=== PATIENT | female | born 1950 | race Caucasian/White ===

== ENCOUNTER 2022-11-02 15:08 | Emergency (ER) | payer MEDICARE ==
[2022-11-02 15:17] VITALS: TEMP 98.4
[2022-11-02] MEDS ORDERED: SODIUM CHLORIDE 0.9% 500 ML 500 ML IV STA (15:22)
--- NOTE | 2022-11-02 15:28 | ED ---
Abdominal Pain HPI - General Chief Complaint: Abdominal Pain Stated Complaint: acute lower abd pain Time Seen by Provider: 11/02/22 15:22 Source: patient, family, RN notes reviewed, old records reviewed Mode of arrival: ambulatory Limitations: no limitations - History of Present Illness Initial Comments: This is a 72-year-old female presents today for evaluation suprapubic and periumbilical abdominal pain for going around a month. Diarrhea. Diminished bowel movement some nausea but no change in appetite. No fevers, patient has appendix removed but no other surgical history. Motrin, Tylenol for pain MD Complaint: abdominal pain -: days(s) Location: diffuse Radiation: none Migration to: no migration Severity: moderate Severity scale (1-10): 4 Quality: cramping, aching Consistency: constant Improves With: nothing, bowel movement Worsens With: nothing Associated Symptoms: nausea, vomiting Treatments Prior to Arrival: other (0) - Related Data Previous Rx's Medication Instructions Recorded polyethylene glycoL 3350 [Miralax] 17 gm PO DAILY #14 packet 11/02/22 Allergies Allergy/AdvReac Type Severity Reaction Status Date / Time No Known Allergies Allergy Verified 11/02/22 15:17 Review of Systems ROS Statement: Those systems with pertinent positive or pertinent negative responses have been documented in the HPI. ROS Other: All systems not noted in ROS Statement are negative. Past Medical History Past Medical History: No Reported History History of Any Multi-Drug Resistant Organisms: None Reported Past Surgical History: Adenoidectomy, Appendectomy, Tonsillectomy Past Psychological History: No Psychological Hx Reported Smoking Status: Former smoker Past Alcohol Use History: None Reported Past Drug Use History: None Reported General Exam Limitations: no limitations General appearance: alert, in no apparent distress Head exam: Present: atraumatic, normocephalic, normal inspection Eye exam: Present: normal appearance, PERRL, EOMI. Absent: scleral icterus, conjunctival injection, periorbital swelling ENT exam: Present: normal exam, mucous membranes moist Neck exam: Present: normal inspection. Absent: tenderness, meningismus, lymphadenopathy Respiratory exam: Present: normal lung sounds bilaterally. Absent: respiratory distress, wheezes, rales, rhonchi, stridor Cardiovascular Exam: Present: regular rate, normal rhythm, normal heart sounds. Absent: systolic murmur, diastolic murmur, rubs, gallop, clicks GI/Abdominal exam: Present: soft, normal bowel sounds. Absent: distended, tenderness, guarding, rebound, rigid Extremities exam: Present: normal inspection, full ROM, normal capillary refill. Absent: tenderness, pedal edema, joint swelling, calf tenderness Back exam: Present: normal inspection Neurological exam: Present: alert, oriented X3, CN II-XII intact Psychiatric exam: Present: normal affect, normal mood Skin exam: Present: warm, dry, intact, normal color. Absent: rash Course Vital Signs 11/02/22 11/02/22 15:14 18:20 Temperature 98.4 F Pulse Rate 78 80 Respiratory 16 18 Rate Blood Pressure 169/104 183/108 O2 Sat by Pulse 98 Oximetry - Reevaluation(s) Reevaluation #1: 11/02/22 15:49 Medical records reviewed Reevaluation #2: 11/02/22 17:37 No change in symptoms here in the ER but not requiring pain medication Reevaluation #3: 11/02/22 17:38 Patient informed results and questions have been answered Reevaluation #4: 11/02/22 15:49 Was pt. sent in by a medical professional or institution (, PA, [employer] SALESPERSON, urgent care, hospital, or snf...) When possible be specific @ -no Did you speak to anyone other than the patient for history (EMS, parent, family, police, friend...)? What history was obtained from this source @ -no Did you review nursing and triage notes (agree or disagree)? Why? @ -agree Are old charts reviewed (outside hosp., previous admission, EMS record, old EKG, old radiological studies, urgent care reports/EKG's, snf records)? Report findings @ -yes Differential Diagnosis (chest pain, altered mental status, abdominal pain women, abdominal pain men, vaginal bleeding, weakness, fever, dyspnea, syncope, headache, dizziness, GI bleed, back pain, seizure, CVA, palpatations, mental health, musculoskeletal)? @ -prior EKG interpreted by me (3pts min.). @ -no X-rays interpreted by me (1pt min.). @ -no CT interpreted by me (1pt min.). @ -yes U/S interpreted by me (1pt. min.). @ -no What testing was considered but not performed or refused? (CT, X-rays, U/S, labs)? Why? @ -none What meds were considered but not given or refused? Why? @ -none Did you discuss the management of the patient with other professionals (professionals i.e. , PA, [employer] SALESPERSON, lab, RT, psych nurse, social science professor, commodities manager, teacher, command center officer, medical case manager)? Give summary @ -no Was smoking cessation discussed for >3mins.? @ -no Was critical care preformed (if so, how long)? @ -no Were there social determinants of health that impacted care today? How? (Homelessness, low income, unemployed, alcoholism, drug addiction, transportation, low edu. Level, literacy, decrease access to med. care, [facility], rehab)? @ -none Was there de-escalation of care discussed even if they declined (Discuss DNR or withdrawal of care, Hospice)? DNR status @ -no What co-morbidities impacted this encounter? (DM, HTN, Smoking, COPD, CAD, Cancer, CVA, ARF, Chemo, Hep., AIDS, mental health diagnosis, sleep apnea, morbid obesity)? @ -none Was patient admitted / discharged? Hospital course, mention meds given and route, prescriptions, significant lab abnormalities, going to OR and other pertinent info. @ - 72 female with persistent abdominal pain now requiring pain management here in the ER crampy persistent abdominal pain for one month. Severe constipation is found on computed tomography scan, this is present throughout we placed on bowel regimen can be discharged home Discharge Undiagnosed new problem with uncertain prognosis? @ -no Drug Therapy requiring intensive monitoring for toxicity (Heparin, Nitro, Insulin, Cardizem)? @ -no Were any procedures done? @ -no Diagnosis/symptom? @ -Abdominal pain constipation Acute, or Chronic, or Acute on Chronic? @ -Acute Uncomplicated (without systemic symptoms) or Complicated (systemic symptoms)? @ -Complicated Side effects of treatment? @ -no Exacerbation, Progression, or Severe Exacerbation? @ -exacerbation Poses a threat to life or bodily function? How? (Chest pain, [place], [place], pneumonia, PE, COPD, DKA, ARF, appy, cholecystitis, CVA, Diverticulitis, Homicidal, Suicidal, threat to staff... and all critical care pts) @ -no Reevaluation #5: 11/02/22 15:49 Differential Abdominal Pain Women: Appendicitis, Cholecystitis, diverticulosis, ischemic bowel, pancreatitis, hepatitis, UTI, gastroenteritis, AAA, incarcerated hernia, bowel obstruction, constipation, inflammatory bowel, hepatitis, peptic ulcer disease, splenic infarction, perforated viscus, vulvitis, ovarian torsion, PID, kidney stone, placenta abruption, this is not meant to be an all-inclusive list Medical Decision Making - Medical Decision Making 72 female with persistent abdominal pain now requiring pain management here in the ER crampy persistent abdominal pain for one month. Severe constipation is found on computed tomography scan, this is present throughout we placed on bowel regimen can be discharged home - Lab Data Result diagrams: 11/02/22 15:44 11/02/22 15:44 Lab Results 11/02/22 11/02/22 11/02/22 Range/Units 15:44 15:44 17:00 WBC 8.8 (3.8-10.6) k/uL RBC 4.09 (3.80-5.40) m/uL Hgb 11.4 (11.4-16.0) gm/dL Hct 34.2 (34.0-46.0) % MCV 83.7 (80.0-100.0) fL MCH 27.7 (25.0-35.0) pg MCHC 33.2 (31.0-37.0) g/dL RDW 14.6 (11.5-15.5) % Plt Count 286 (150-450) k/uL MPV 6.9 Neutrophils % 82 % Lymphocytes % 11 % Monocytes % 5 % Eosinophils % 1 % Basophils % 0 % Neutrophils # 7.3 (1.3-7.7) k/uL Lymphocytes # 0.9 L (1.0-4.8) k/uL Monocytes # 0.4 (0-1.0) k/uL Eosinophils # 0.1 (0-0.7) k/uL Basophils # 0.0 (0-0.2) k/uL Sodium 130 L (137-145) mmol/L Potassium 4.1 (3.5-5.1) mmol/L Chloride 98 (98-107) mmol/L Carbon Dioxide 24 (22-30) mmol/L Anion Gap 8 mmol/L BUN 15 (7-17) mg/dL Creatinine 0.76 (0.52-1.04) mg/dL Est GFR (CKD-EPI)AfAm >90 (>60 ml/min/1.73 sqM) Est GFR (CKD-EPI)NonAf 80 (>60 ml/min/1.73 sqM) Glucose 106 H (74-99) mg/dL Calcium 8.5 (8.4-10.2) mg/dL Phosphorus 3.5 (2.5-4.5) mg/dL Magnesium 1.9 (1.6-2.3) mg/dL Total Bilirubin 0.8 (0.2-1.3) mg/dL AST 17 (14-36) U/L ALT 10 (4-34) U/L Alkaline Phosphatase 127 H (38-126) U/L Total Protein 6.2 L (6.3-8.2) g/dL Albumin 3.0 L (3.5-5.0) g/dL Amylase 58 (30-110) U/L Lipase 70 (23-300) U/L Urine Color Yellow Urine Appearance Clear (Clear) Urine pH 6.0 (5.0-8.0) Ur Specific [place] 1.011 (1.001-1.035) Urine Protein Negative (Negative) Urine Glucose (UA) Negative (Negative) Urine Ketones Negative (Negative) Urine Blood Negative (Negative) Urine Nitrite Negative (Negative) Urine Bilirubin Negative (Negative) Urine Urobilinogen <2.0 (<2.0) mg/dL Ur Leukocyte Esterase Negative (Negative) - Radiology Data Radiology results: report reviewed (CT abdomen and pelvis shows diffuse colonic stool), image reviewed Disposition Clinical Impression: Abdominal pain, Constipation Disposition: HOME SELF-CARE Condition: Good Instructions (If sedation given, give patient instructions): Constipation (ED) Prescriptions: polyethylene glycoL 3350 [Miralax] 17 gm PO DAILY #14 packet Is patient prescribed a controlled substance at d/c from ED?: No Referrals: None,Stated [Primary Care Provider] - 1-2 days Time of Disposition: 17:30
[2022-11-02 16:01] LABS: Basophils % (A) 0 %; Eosinophils # (A) 0.1 k/uL (0-0.7); Eosinophils % (A) 1 %; HCT 34.2 % (34.0-46.0); HGB 11.4 gm/dL (11.4-16.0); Lymphocytes # (A) 0.9 k/uL (1.0-4.8); Lymphocytes % (A) 11 %; MCH 27.7 pg (25.0-35.0); MCHC 33.2 g/dL (31.0-37.0); MCV 83.7 fL (80.0-100.0); Mean Platelet Volume 6.9; Monocytes # (A) 0.4 k/uL (0-1.0); Monocytes % (A) 5 %; Neutrophils # (A) 7.3 k/uL (1.3-7.7); Neutrophils % (A) 82 %; Platelet Count 286 k/uL (150-450); RBC 4.09 m/uL (3.80-5.40); RDW 14.6 % (11.5-15.5); WBC 8.8 k/uL (3.8-10.6)
[2022-11-02 16:16] LABS: ALT 10 U/L (4-34); AST 17 U/L (14-36); African American GFR (CKD) >90 (>60 ml/min/1.73 sqM); Alkaline Phosphatase 127 U/L (38-126); Amylase 58 U/L (30-110); Anion Gap 8 mmol/L; Blood Urea Nitrogen 15 mg/dL (7-17); Calcium 8.5 mg/dL (8.4-10.2); Carbon Dioxide 24 mmol/L (22-30); Chloride 98 mmol/L (98-107); Glucose 106 mg/dL (74-99); Lipase 70 U/L (23-300); Magnesium 1.9 mg/dL (1.6-2.3); Non-African American GFR(CKD) 80 (>60 ml/min/1.73 sqM); Phosphorus 3.5 mg/dL (2.5-4.5); Potassium 4.1 mmol/L (3.5-5.1); Sodium 130 mmol/L (137-145); Total Bilirubin 0.8 mg/dL (0.2-1.3); Total Protein 6.2 g/dL (6.3-8.2)
[2022-11-02 17:09] LABS: Appearance,Urine Clear (Clear); Bilirubin,Urine Negative (Negative); Blood,Urine Negative (Negative); Color,Urine Yellow; Glucose,Urine (UA) Negative (Negative); Ketones,Urine Negative (Negative); Leukocyte Esterase,Urine Negative (Negative); Nitrite,Urine Negative (Negative); Protein,Urine Negative (Negative); Specific Gravity,Urine 1.011 (1.001-1.035); Urobilinogen,Urine <2.0 mg/dL (<2.0)
--- NOTE | 2022-11-02 17:09 | CT ---
EXAMINATION TYPE: CT abdomen pelvis wo con DATE OF EXAM: 11/02/2022 COMPARISON: None INDICATION: Lower abdominal pain and cramping x1mo. DLP: 350.9 mGycm, Automated exposure control for dose reduction was used. CONTRAST: 0 mL of Isovue 300. Study performed without Oral Contrast TECHNIQUE: Axial images were obtained from above the diaphragm to the pubic rami in the axial plane a t 5 mm thick sections. Reconstructed images are reviewed on the computer in the coronal plane. FINDINGS: Limited CT sections are obtained the lung bases. The lung bases are clear. CT ABDOMEN: Liver: Normal Spleen: Normal Pancreas: Atrophic Adrenal glands: The adrenal glands are normal. Gallbladder: Normal Kidneys: Left kidney is within the left hemipelvis. No masses are evident. No hydronephrosis is present. No cysts are present. Right kidney: No masses are evident. No hydronephrosis is present. No cysts are present. Aorta: Vascular calcification is within the aorta. There is fusiform prominence of the mid abdominal aorta at 3.0 cm. Inferior vena cava: Normal. CT PELVIS: Loops of bowel within the abdomen and pelvis are normal. This study is performed without oral con trast limiting bowel evaluation. Fecal debris is through the colon. Correlate for constipation. Appendix: Not identified. No dilated tubular structure or inflammatory changes identified. Urinary bladder: Normal. Genitourinary structures: Uterus appears normal. Adnexa are normal. Osseous structures: No suspicious lytic or sclerotic lesions. IMPRESSIONS: 1. Equivocal correlation recommended for constipation. 2. Fusiform prominence abdominal aorta 3.0 cm.
[2022-11-02] MEDS ORDERED: GLYCERIN ADULT SUPPOSITORY 1 EACH RECTAL STA (17:34)
[2022-11-02] MEDS ORDERED: SENNOSIDES-DOCUSATE SODIUM 1 EACH TAB PO STA (17:34)
[2022-11-02] MEDS ORDERED: MAGNESIUM CITRATE 296 ML BOTTLE PO ONE (17:34)
[2022-11-02 18:22] VITALS: BP 183/108; PULSE 80; RESP 18
== END 2022-11-02 18:41 | disposition home or self-care (01) ==
LOC: EC 15:08
DX: K59.00 Constipation, unspecified (principal); Z87.891 Personal history of nicotine dependence
CPT/HCPCS: 36415; 74176; 80053; 81003; 82150; 83690; 83735; 84100; 85025; 96360; 96361; 99284

== ENCOUNTER 2023-01-04 11:50 | Inpatient (IN) | payer MEDICARE ==
[2023-01-04] MEDS ORDERED: KETOROLAC 15 MG/ML 1 ML VIAL IVP STA (12:12)
[2023-01-04] MEDS ORDERED: ONDANSETRON 4 MG/2 ML VIAL IVP STA (12:12)
[2023-01-04] MEDS ORDERED: SODIUM CHLORIDE 0.9% 1,000 ML IV STA ×2 (12:12→15:10)
[2023-01-04] MEDS ORDERED: MORPHINE SULFATE 4 MG/ML SYRINGE IVP STA ×2 (12:13→15:10)
--- NOTE | 2023-01-04 12:35 | ED ---
Abdominal Pain HPI - General Chief Complaint: Abdominal Pain Stated Complaint: Abd Pain Time Seen by Provider: 01/04/23 11:53 Source: patient, family, EMS, RN notes reviewed Mode of arrival: EMS Limitations: no limitations - History of Present Illness Initial Comments: This is a 72-year-old female who presents to the emergency department for abdominal pain. Patient was evaluated here for this in October and told that it was related to constipation. States that since then, symptoms have continued to worsen, particularly over the last 1-2 days. Reports associated nausea. She states that she is having regular bowel movements and does not believe that she is constipated. Pain is in the lower abdomen, worse on the right side. The pain does not go into her back or radiate elsewhere. Denies any fevers or chills. Denies any fevers, chills, sore throat, cough, dyspnea, chest pain, palpitations, vomiting, diarrhea, back pain, or headaches. MD Complaint: abdominal pain Location: suprapubic - Related Data Home Medications Medication Instructions Recorded Confirmed No Known Home Medications 01/04/23 01/04/23 Allergies Allergy/AdvReac Type Severity Reaction Status Date / Time No Known Allergies Allergy Verified 01/04/23 15:59 Review of Systems ROS Statement: Those systems with pertinent positive or pertinent negative responses have been documented in the HPI. ROS Other: All systems not noted in ROS Statement are negative. Past Medical History Past Medical History: No Reported History History of Any Multi-Drug Resistant Organisms: None Reported Past Surgical History: Adenoidectomy, Appendectomy, Tonsillectomy Past Psychological History: No Psychological Hx Reported Smoking Status: Former smoker Past Alcohol Use History: None Reported Past Drug Use History: None Reported General Exam Limitations: no limitations General appearance: alert, in distress Head exam: Present: atraumatic, normocephalic, normal inspection Respiratory exam: Present: normal lung sounds bilaterally. Absent: respiratory distress, wheezes, rales, rhonchi, stridor Cardiovascular Exam: Present: regular rate, normal rhythm, normal heart sounds. Absent: systolic murmur, diastolic murmur, rubs, gallop, clicks GI/Abdominal exam: Present: soft, tenderness (suprapubic), normal bowel sounds. Absent: distended Neurological exam: Present: alert, oriented X3, CN II-XII intact Psychiatric exam: Present: normal affect, normal mood Skin exam: Present: warm, dry, intact, normal color. Absent: rash Course Vital Signs 01/04/23 01/04/23 11:55 12:01 Temperature 97.8 F Pulse Rate 77 Respiratory 16 Rate Blood Pressure 175/89 O2 Sat by Pulse 99 Oximetry Medical Decision Making - Medical Decision Making This is a 72-year-old female who presents to the emergency department for abdominal pain. Was pt. sent in by a medical professional or institution? @ -No Did you speak to anyone other than the patient for history? @ -No Did you review nursing and triage notes? @ -Yes, and I agree, it is accurate with regards to the patient's symptoms. Were old charts reviewed? @ -No Differential Diagnosis? @ -Differential Abdominal Pain Women: Appendicitis, Cholecystitis, diverticulosis, ischemic bowel, pancreatitis, hepatitis, UTI, gastroenteritis, AAA, incarcerated hernia, bowel obstruction, constipation, inflammatory bowel, hepatitis, peptic ulcer disease, splenic infarction, perforated viscus, vulvitis, ovarian torsion, PID, kidney stone, placenta abruption, this is not meant to be an all-inclusive list EKG interpreted by me (3pts min.)? @ -Not obtained X-rays interpreted by me (1pt min.)? @ -Not obtained CT interpreted by me (1pt min.)? @ -Computed tomography scan of the abdomen and pelvis obtained. My interpretation identifies dilation of the sigmoid colon. U/S interpreted by me (1pt. min.)? @ -Not obtained What testing was considered but not performed? (CT, X-rays, U/S, labs)? Why? @ -None What meds were considered but not given? Why? @ -None Did you discuss the management of the patient with other professionals? @ -Yes, Dr. Pa, who accepts the patient for admission. Did you reconcile home meds? @ -Yes Was smoking cessation discussed for >3mins.? @ -No Was critical care preformed (if so, how long)? @ -No Were there social determinants of health that impacted care today? How? (Homelessness, low income, unemployed, alcoholism, drug addiction, transportation, low edu. Level, literacy, decrease access to med. care, longterm, rehab)? @ -No Was there de-escalation of care discussed even if they declined? (Discuss DNR or withdrawal of care, Hospice)? @ -No What co-morbidities impacted this encounter? (DM, HTN, Smoking, COPD, CAD, Cancer, CVA, Hep., AIDS, mental health diagnosis, sleep apnea, morbid obesity)? @ -None Was patient admitted / discharged? @ -Admitted. Lab work obtained revealing signs of dehydration, and was otherwise nonactionable. Computed tomography scan of the abdomen and pelvis obtained revealing a markedly abnormal sigmoid colon with dilation and ill- definition of the wall likely secondary to marked inflammation, possibly related to diverticulitis. Neoplasm/mass cannot be excluded. Proximal colon is also prominent in size with marked feces. There is also a small amount of free intraperitoneal air and ascites. In light of these findings and with the patient's intractable abdominal pain, she was admitted to medicine with general surgery consult for further evaluation and management. She was started on IV Z osyn for possible diverticulitis. Blood cultures obtained. CEA also ordered due to the possibility of neoplasm, with results pending at the time of admission. Undiagnosed new problem with uncertain prognosis? @ -None Drug Therapy requiring intensive monitoring for toxicity (Heparin, Nitro, Insulin, Cardizem)? @ -None Were any procedures done? @ -None Diagnosis/symptom? @ -Intractable abdominal pain, dilation of sigmoid colon, diverticulitis Acute, or Chronic, or Acute on Chronic? @ -Acute Uncomplicated (without systemic symptoms) or Complicated (systemic symptoms)? @ -Complicated Side effects of treatment? @ -None Exacerbation, Progression, or Severe Exacerbation] @ -Not applicable Poses a threat to life or bodily function? @ -Yes This case was discussed in detail with the attending ED physician, Dr. Rehman. Presentation, findings, and treatment plan discussed in detail as well. - Lab Data Result diagrams: 01/04/23 13:11 01/04/23 13:11 Lab Results 01/04/23 01/04/23 01/04/23 Range/Units 13:11 13:11 13:11 WBC 9.6 (3.8-10.6) k/uL RBC 4.21 (3.80-5.40) m/uL Hgb 11.6 (11.4-16.0) gm/dL Hct 35.5 (34.0-46.0) % MCV 84.3 (80.0-100.0) fL MCH 27.5 (25.0-35.0) pg MCHC 32.6 (31.0-37.0) g/dL RDW 15.4 (11.5-15.5) % Plt Count 385 (150-450) k/uL MPV 7.6 Neutrophils % 93 % Lymphocytes % 4 % Monocytes % 2 % Eosinophils % 0 % Basophils % 0 % Neutrophils # 8.9 H (1.3-7.7) k/uL Lymphocytes # 0.4 L (1.0-4.8) k/uL Monocytes # 0.2 (0-1.0) k/uL Eosinophils # 0.0 (0-0.7) k/uL Basophils # 0.0 (0-0.2) k/uL Sodium 132 L (137-145) mmol/L Potassium 3.8 (3.5-5.1) mmol/L Chloride 99 (98-107) mmol/L Carbon Dioxide 26 (22-30) mmol/L Anion Gap 7 mmol/L BUN 21 H (7-17) mg/dL Creatinine 0.67 (0.52-1.04) mg/dL Est GFR (CKD-EPI)AfAm >90 (>60 ml/min/1.73 sqM) Est GFR (CKD-EPI)NonAf 90 (>60 ml/min/1.73 sqM) Glucose 116 H (74-99) mg/dL Plasma Lactic Acid [place] 1.7 (0.7-2.0) mmol/L Calcium 8.1 L (8.4-10.2) mg/dL Total Bilirubin 0.9 (0.2-1.3) mg/dL AST 18 (14-36) U/L ALT 9 (4-34) U/L Alkaline Phosphatase 111 (38-126) U/L Total Protein 5.6 L (6.3-8.2) g/dL Albumin 2.6 L (3.5-5.0) g/dL Amylase <30 L (30-110) U/L Lipase 28 (23-300) U/L - Radiology Data Radiology results: report reviewed, image reviewed Disposition Clinical Impression: Intractable abdominal pain, Sigmoid thickening, Diverticulitis Disposition: ADMITTED IP TO THIS HOSP
[2023-01-04 13:51] LABS: ALT 9 U/L (4-34); AST 18 U/L (14-36); African American GFR (CKD) >90 (>60 ml/min/1.73 sqM); Albumin 2.6 g/dL (3.5-5.0); Alkaline Phosphatase 111 U/L (38-126); Amylase <30 U/L (30-110); Anion Gap 7 mmol/L; Blood Urea Nitrogen 21 mg/dL (7-17); Calcium 8.1 mg/dL (8.4-10.2); Carbon Dioxide 26 mmol/L (22-30); Chloride 99 mmol/L (98-107); Glucose 116 mg/dL (74-99); Lipase 28 U/L (23-300); Non-African American GFR(CKD) 90 (>60 ml/min/1.73 sqM); Potassium 3.8 mmol/L (3.5-5.1); Sodium 132 mmol/L (137-145); Total Bilirubin 0.9 mg/dL (0.2-1.3); Total Protein 5.6 g/dL (6.3-8.2)
[2023-01-04 14:23] LABS: Basophils % (A) 0 %; Eosinophils % (A) 0 %; HCT 35.5 % (34.0-46.0); HGB 11.6 gm/dL (11.4-16.0); Lymphocytes # (A) 0.4 k/uL (1.0-4.8); Lymphocytes % (A) 4 %; MCH 27.5 pg (25.0-35.0); MCHC 32.6 g/dL (31.0-37.0); MCV 84.3 fL (80.0-100.0); Mean Platelet Volume 7.6; Monocytes # (A) 0.2 k/uL (0-1.0); Monocytes % (A) 2 %; Neutrophils # (A) 8.9 k/uL (1.3-7.7); Neutrophils % (A) 93 %; Platelet Count 385 k/uL (150-450); RBC 4.21 m/uL (3.80-5.40); RDW 15.4 % (11.5-15.5); WBC 9.6 k/uL (3.8-10.6)
--- NOTE | 2023-01-04 14:48 | CT ---
EXAMINATION TYPE: CT abdomen pelvis w con DATE OF EXAM: 01/04/2023 COMPARISON: 11/02/2022 HISTORY: abdominal pain CT DLP: 571.1 mGycm Automated exposure control for dose reduction was used. TECHNIQUE: Helical acquisition of images was performed from the lung bases through the pelvis. CONTRAST: Performed without Oral Contrast and with IV Contrast, patient injected with 100 mL of Isovue 300. FINDINGS: The lung bases are clear. The gallbladder is unremarkable there is no gallstones, distention, wall thickening or pericholecysti c fluid. There is no biliary ductal dilatation. There is no focal mass or organomegaly involving the liver pancreas, spleen or adrenal glands. There is a ptotic left kidney within the left pelvis. There are no solid renal masses or hydronephros is. There is 3.1 cm aneurysm of the infrarenal abdominal aorta but there is no retroperitoneal adenop athy or hemorrhage. There is a marked amount stool within the colon which appears prominent in size and there is ill defi nition of the sigmoid colon secondary to what appears to be marked sigmoid wall thickening either sec ondary to inflammation or mass. This was seen on the prior study but has increased in severity in the interval. There is no small bowel obstruction. There is small amount of free intraperitoneal fluid a nd a tiny bubble of free intraperitoneal air. There is no pelvic adenopathy. No focal osseous lesions are seen IMPRESSION: 1. Markedly abnormal sigmoid colon with dilatation and ill definition of the wall likely secondary to marked inflammation either secondary to diverticulitis. Neoplasm not excluded. Proximal colon promin ent in size with marked feces. No small bowel obstruction. 2. tiny amount of free intraperitoneal air and small amount of ascites. 3. 3.1 cm stable infrarenal abdominal aortic aneurysm.
[2023-01-04] MEDS ORDERED: MORPHINE SULFATE 4 MG/ML SYRINGE IV PRN (16:02)
[2023-01-04] MEDS ORDERED: NALOXONE 0.4 MG/ML 1 ML VIAL IV PRN (16:02)
[2023-01-04] MEDS ORDERED: ONDANSETRON 4 MG/2 ML VIAL IVP PRN (16:02)
[2023-01-04] MEDS ORDERED: ACETAMINOPHEN TAB 325 MG TAB PO PRN (16:02)
[2023-01-04] MEDS: PIPERACILLIN-TAZOBACTAM 3.375 GM in SODIUM CHLORIDE 0.9% 100 ML IVPB SCH ×2 (17:17→23:31)
[2023-01-05] MEDS: MORPHINE SULFATE 2 MG/ML SYRINGE IV PRN ×2 (01:06→08:09)
[2023-01-05] MEDS: PIPERACILLIN-TAZOBACTAM 3.375 GM in SODIUM CHLORIDE 0.9% 100 ML IVPB SCH (08:08)
[2023-01-05] MEDS: PANTOPRAZOLE 40 MG/10 ML VIAL IV SCH (08:09)
[2023-01-05] MEDS ORDERED: HYDROmorphone 1 MG/ML 1 ML SYRINGE IVP STA (10:25)
--- NOTE | 2023-01-05 12:52 | P.GSCN ---
History of Present Illness Consult date: 01/05/23 History of present illness: CHIEF COMPLAINT: Abdominal pain HISTORY OF PRESENT ILLNESS: This is a 72-year-old female who presented to the hospital with complaints of abdominal pain that has been present for about 2 months. She reports that the pain is located in the right lower quadrant and does go across the lower abdomen occasionally to the left lower quadrant. She reports yesterday the pain became very severe and rated it 10 out of 10. She has been having diarrhea. She denies any blood in the stools. Her last colonoscopy was 5 years ago and reports having polyps removed. Denies any family history of colon cancer. Computed tomography scan abdomen and pelvis reported markedly abnormal sigmoid colon with dilatation and ill-definition of the wall likely secondary to marked inflammation either secondary to diverticulitis. Neoplasm not excluded. Her CEA level is elevated at 125. She denies any cardiac history. Past surgical history includes appendectomy. Patient has required IV morphine for pain control. PAST MEDICAL HISTORY: See below PAST SURGICAL HISTORY: appendectomy MEDICATIONS: See below ALLERGIES: See below SOCIAL HISTORY: No illicit drug use. REVIEW OF SYSTEMS: CONSTITUTIONAL: Denies fever or chills. HEENT: Denies blurred vision, vision changes, or eye pain. Denies hemoptysis CARDIOVASCULAR: Denies chest pain or pressure. RESPIRATORY: No shortness of breath. GASTROINTESTINAL: See HPI for pertinent findings HEMATOLOGIC: Denies bleeding disorders. GENITOURINARY: Denies any blood in urine or increased urinary frequency. SKIN: Denies pruitis. Denies rash. PHYSICAL EXAM: VITAL SIGNS: Reviewed GENERAL: Well-developed in no acute distress. HEENT: No sclera icterus. Extraocular movements grossly intact. Moist buccal mucosa. Head is atraumatic, normocephalic. No nasal drainage. ABDOMEN: Distended. Tenderness of palpation in the right lower quadrant and left lower quadrant. Firmness noted across the lower abdomen. NEUROLOGIC: Alert and oriented. Cranial nerves II through XII grossly intact. LABORATORY DATA: WBC 9.6 Hgb 11.6 platelets 385 Sodium 132 potassium is 3.8 creatinine 0.67 Lactic acid 1.7 CRP 13.4 CEA elevated at 125 IMAGING: Computed tomography scan of abdomen and pelvis reports markedly abnormal sigmoid colon with dilatation and ill-definition of the wall likely secondary to marked inflammation either secondary to diverticulitis. Neoplasm not excluded. Proximal: Prominent in size with marked feces. No small bowel obstruction. Tiny amount of free intraperitoneal air and small amount ascites. 3.1 cm stable infrarenal abdominal aortic aneurysm. ASSESSMENT: 1. Abdominal pain 2. Markedly abnormal sigmoid colon with dilatation and ill-definition of the wall likely secondary to marked inflammation secondary to diverticulitis. Neoplasm not excluded. Tiny amount of free intraperitoneal air noted on CAT scan 3. Elevated CEA level PLAN: -Patient scheduled for exploratory laparotomy today with Dr. 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 Signing provider agrees with the documented findings, assessment, and plan of care. Past Medical History Past Medical History: No Reported History History of Any Multi-Drug Resistant Organisms: None Reported Past Surgical History: Adenoidectomy, Appendectomy, Tonsillectomy Past Anesthesia/Blood Transfusion Reactions: Unable to Obtain Past Psychological History: No Psychological Hx Reported Smoking Status: Former smoker Past Alcohol Use History: None Reported Past Drug Use History: None Reported Medications and Allergies Home Medications Medication Instructions Recorded Confirmed Type No Known Home Medications 01/04/23 01/04/23 History Allergies Allergy/AdvReac Type Severity Reaction Status Date / Time No Known Allergies Allergy Verified 01/04/23 15:59 Surgical - Exam Vital Signs Temp Pulse Resp Pulse Ox 97.8 F 77 16 99 01/04/23 11:55 01/04/23 11:55 01/04/23 11:55 01/04/23 11:55 Results - Labs 01/04/23 13:11 01/04/23 13:11 Abnormal Lab Results - Last 24 Hours (Table) 01/04/23 01/04/23 01/04/23 Range/Units 13:11 13:11 13:11 Neutrophils # 8.9 H (1.3-7.7) k/uL Lymphocytes # 0.4 L (1.0-4.8) k/uL Sodium 132 L (137-145) mmol/L BUN 21 H (7-17) mg/dL Glucose 116 H (74-99) mg/dL Calcium 8.1 L (8.4-10.2) mg/dL C-Reactive Protein 13.4 H (<1.0) mg/dL Total Protein 5.6 L (6.3-8.2) g/dL Albumin 2.6 L (3.5-5.0) g/dL Amylase <30 L (30-110) U/L Carcinoembryonic Ag (0.0-4.9) ng/mL 01/04/23 Range/Units 13:11 Neutrophils # (1.3-7.7) k/uL Lymphocytes # (1.0-4.8) k/uL Sodium (137-145) mmol/L BUN (7-17) mg/dL Glucose (74-99) mg/dL Calcium (8.4-10.2) mg/dL C-Reactive Protein (<1.0) mg/dL Total Protein (6.3-8.2) g/dL Albumin (3.5-5.0) g/dL Amylase (30-110) U/L Carcinoembryonic Ag 125.0 H (0.0-4.9) ng/mL Diabetes panel 01/04/23 Range/Units 13:11 Sodium 132 L (137-145) mmol/L Potassium 3.8 (3.5-5.1) mmol/L Chloride 99 (98-107) mmol/L Carbon Dioxide 26 (22-30) mmol/L BUN 21 H (7-17) mg/dL Creatinine 0.67 (0.52-1.04) mg/dL Glucose 116 H (74-99) mg/dL Calcium 8.1 L (8.4-10.2) mg/dL AST 18 (14-36) U/L ALT 9 (4-34) U/L Alkaline Phosphatase 111 (38-126) U/L Total Protein 5.6 L (6.3-8.2) g/dL Albumin 2.6 L (3.5-5.0) g/dL Calcium panel 01/04/23 Range/Units 13:11 Calcium 8.1 L (8.4-10.2) mg/dL Albumin 2.6 L (3.5-5.0) g/dL Pituitary panel 01/04/23 Range/Units 13:11 Sodium 132 L (137-145) mmol/L Potassium 3.8 (3.5-5.1) mmol/L Chloride 99 (98-107) mmol/L Carbon Dioxide 26 (22-30) mmol/L BUN 21 H (7-17) mg/dL Creatinine 0.67 (0.52-1.04) mg/dL Glucose 116 H (74-99) mg/dL Calcium 8.1 L (8.4-10.2) mg/dL Adrenal panel 01/04/23 Range/Units 13:11 Sodium 132 L (137-145) mmol/L Potassium 3.8 (3.5-5.1) mmol/L Chloride 99 (98-107) mmol/L Carbon Dioxide 26 (22-30) mmol/L BUN 21 H (7-17) mg/dL Creatinine 0.67 (0.52-1.04) mg/dL Glucose 116 H (74-99) mg/dL Calcium 8.1 L (8.4-10.2) mg/dL Total Bilirubin 0.9 (0.2-1.3) mg/dL AST 18 (14-36) U/L ALT 9 (4-34) U/L Alkaline Phosphatase 111 (38-126) U/L Total Protein 5.6 L (6.3-8.2) g/dL Albumin 2.6 L (3.5-5.0) g/dL
[2023-01-05] MEDS: SODIUM CHLORIDE 0.9% 1,000 ML IV SCH ×2 (13:44→21:36)
[2023-01-05 15:21] LABS: INR 1.1 (<1.2); Partial Thromboplastin Time 28.4 sec (22.0-30.0); Prothrombin Time 11.5 sec (9.0-12.0)
[2023-01-05] MEDS: MEROPENEM 1 GM in SODIUM CHLORIDE 0.9% 100 ML IVPB SCH ×2 (15:23→23:24)
[2023-01-05] MEDS ORDERED: fentaNYL (PF) 50 MCG/1 ML VIAL IVP ONE ×2 (17:25→17:32)
[2023-01-05] MEDS ORDERED: LACTATED RINGERS 1,000 ML IV ONE ×3 (17:31→19:35)
[2023-01-05] MEDS ORDERED: ONDANSETRON 4 MG/2 ML VIAL IVP ONE (17:37)
[2023-01-05] MEDS ORDERED: DEXAMETHASONE SOD PHOSPHATE 4 MG/ML 1 ML VIAL IVP ONE (17:38)
[2023-01-05] MEDS ORDERED: PHENYLEPHRINE-0.9% NACL SYG 1,000 MCG/10 ML SYRINGE ONE (18:32)
[2023-01-05] MEDS ORDERED: PROPOFOL 10 MG/ML 20 ML VIAL IV ONE (18:32)
[2023-01-05] MEDS ORDERED: SUCCINYLCHOLINE CHLORIDE 200 MG/10 ML VIAL IV ONE (18:32)
[2023-01-05] MEDS ORDERED: ROCURONIUM 10 MG/ML (5 ML VIAL) IV ONE (18:32)
[2023-01-05] MEDS ORDERED: fentaNYL (PF) 50 MCG/ML 2 ML AMP ONE (18:32)
[2023-01-05] MEDS ORDERED: MIDAZOLAM 2 MG/2 ML VIAL ONE (18:32)
[2023-01-05] MEDS ORDERED: LIDOCAINE 1% INJ 10MG/ML (20 ML MDV) ONE (18:32)
[2023-01-05] MEDS ORDERED: HYDROmorphone (PF) 1 MG/ML ONE (18:32)
[2023-01-05] MEDS ORDERED: NALOXONE 0.4 MG/ML 1 ML VIAL IV PRN (19:35)
[2023-01-05] MEDS ORDERED: ONDANSETRON 4 MG/2 ML VIAL IVP PRN (19:35)
--- NOTE | 2023-01-05 19:43 | P.OP ---
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 She rece ived general endotracheal tube anesthesia. Her abdomen was prepped and draped usual sterile fashion. A mass was palpated through the abdominal wall on the left side the abdomen. The skin was incised in midline and then the abdomen was entered. Upon entering the abdomen there was grossly distended colon with evidence of chronic constipation the large stool burden. The sigmoid colon was obviously inflamed there is pus in the pelvis. There appeared to be obstructing colon cancer. The Bookwalter retractor was placed the wound. The left colon was mobilized. And then the sigmoid colon was mobilized. There was a fungating tumor extending off the serosal surface of the sigmoid colon. The sigmoid colon was adherent to the right side of the uterus. This was lysed with sharp dissection. The proximal sigmoid colon was then transected. In the sigmoid colon was rotated medially. The mesentery of the sigmoid colon was then divided using the Enseal device. The rectum was then transected with the TA stapler. The specimens of pathology. The patient had a left pelvic kidney was palpated. The abdomen was irrigated. There is evidence of gross tumor spread on the lateral pelvic keller. A suitable spot for the colostomy then brought up in the left upper quadrant. The colon was then brought through the abdominal wall. And then the fascia was closed with looped #1 PDS suture. A TANA drain had been placed in the pelvis and brought out through the right side the abdomen. Skin was closed carmen. The colostomy then matured with 3-0 Vicryl suture. Patient was left intubated and sent to the ICU on the ventilator.
--- NOTE | 2023-01-05 19:58 | P.ANPRN ---
Procedure Note - Anesthesia - Invasive Line Right Central Line Time Out Performed: Yes Location of Patient: OR Preparation: Sterile Prep, Sterile Dressing Central Line Location: Internal Jugular (RIGHT ATTEMPT X2) Ultrasound Used: Yes Purpose - Visualization and Identification of Vasculature: Yes Needle Guage: 18G ANGIO Image Stored and Saved: Yes Narrative: Central line placement per sterile protocol utilized. +angio +cvp +jwire +uneventful dilation and introduction right IJ TLC. Lumens bled and flushed. Capped. pCXR ordered in PACU
--- NOTE | 2023-01-05 20:07 | P.HPIM ---
History of Present Illness H&P Date: 01/05/23 Chief Complaint: Abdominal pain Very pleasant 72-year-old patient, otherwise in good health. 2 months ago patient says been having some abdominal pain off and on. Abdominal pain become much worse yesterday. Patient bowel movements for other regular 2 months ago. Started having the last 2 months sometimes mushy bowel movement sometimes more regular. Patient's had decreased appetite. Lost about 20 pounds. No nausea vomiting. No fever no chills. Computed tomography scan the ER showed some thickening. In the colon. Pending surgery this afternoon Review of systems: GEN.: Weight loss tired decreased appetite EYES: None HEENT: Dentures NECK: None RESPIRATORY: None CARDIOVASCULAR: None GASTROINTESTINAL: As above GENITOURINARY: None MUSCULOSKELETAL: Arthritis LYMPHATICS: None HEMATOLOGICAL: None PSYCHIATRY: None NEUROLOGICAL: None Past medical history to include: Unremarkable Social history: . Smoker. No alcohol. Physical examination: VITAL SIGNS: 98.8, 95, 18, 137/81, 96% room air GENERAL: BMI 17.2, declining but awake tired. EYES: Pupils equal. Conjunctiva palel. HEENT: External appearance of nose and ears normal, oral cavity grossly normal. NECK: JVD not raised; masses not palpable. HEART: First and second heart sounds are normal; no edema. LUNGS: Respiratory rate normal; clear to auscultation. ABDOMEN: Soft, significant tenderness, liver spleen not palpable, unable to palpate mass palpable. PSYCH: Alert and oriented x3; mood and affect anxiousl. MUSCULOSKELETAL:No Clubbing/cyanosis;muscles-grossly intact. OA NEUROLOGICAL: Cranial nerves grossly intact; no facial asymmetry, power and sensation grossly intact. LYMPHATICS: No lymph nodes palpable in the axilla and neck INVESTIGATIONS, reviewed in the clinical context: White count 9.6 hemoglobin 11.6 platelets 385 sodium 132 potassium 3.8 BUN 21 creatinine 0.67 CRP 13.4 albumin 2.[address] abdomen and pelvis with contrast: Left kidney descended into his left pelvis marked amount of stool within the colon marked sigmoid wall thickening. Assessment and plan: -Patient presented with acute abdominal pain likely from severe obstipation. Secondary to sigmoid narrowing. -Sigmoid narrowing. Associated with weight loss and loss of appetite. Strongly suspicious for malignancy. Due for surgery this afternoon -Severe protein calorie malnutrition from decreased oral intake -Mild hyponatremia IV fluids Care was discussed with the patient. Pending surgery this afternoon. Questions answered Past Medical History Past Medical History: No Reported History History of Any Multi-Drug Resistant Organisms: None Reported Past Surgical History: Adenoidectomy, Appendectomy, Tonsillectomy Past Anesthesia/Blood Transfusion Reactions: Unable to Obtain Past Psychological History: No Psychological Hx Reported Smoking Status: Former smoker Past Alcohol Use History: None Reported Past Drug Use History: None Reported Medications and Allergies Home Medications Medication Instructions Recorded Confirmed Type No Known Home Medications 01/04/23 01/04/23 History Allergies Allergy/AdvReac Type Severity Reaction Status Date / Time No Known Allergies Allergy Verified 01/04/23 15:59 Physical Exam Vitals: Vital Signs Temp Pulse Pulse Resp BP BP Pulse Ox 01/05/23 07:20 98.8 F 95 18 137/81 96 01/05/23 02:00 98.9 F 97 16 128/82 97 01/04/23 21:00 99.0 F 73 16 142/86 96 01/04/23 17:30 98.6 F 78 149/104 98 01/04/23 17:00 97 01/04/23 16:30 164/121 90 L 01/04/23 16:00 140/127 78 L 01/04/23 12:30 175/89 01/04/23 12:01 175/89 01/04/23 12:00 156/87 100 01/04/23 11:55 97.8 F 77 16 99 Intake and Output 01/04/23 01/05/23 01/05/23 22:59 06:59 14:59 Other: Voiding Method Bedside Commode # Voids 1 1 # Bowel Movements 2 0 Weight 49.895 kg Results CBC & Chem 7: 01/04/23 13:11 01/04/23 13:11 Labs: Abnormal Lab Results - Last 24 Hours (Table) 01/04/23 01/04/23 01/04/23 Range/Units 13:11 13:11 13:11 Neutrophils # 8.9 H (1.3-7.7) k/uL Lymphocytes # 0.4 L (1.0-4.8) k/uL Sodium 132 L (137-145) mmol/L BUN 21 H (7-17) mg/dL Glucose 116 H (74-99) mg/dL Calcium 8.1 L (8.4-10.2) mg/dL C-Reactive Protein 13.4 H (<1.0) mg/dL Total Protein 5.6 L (6.3-8.2) g/dL Albumin 2.6 L (3.5-5.0) g/dL Amylase <30 L (30-110) U/L Carcinoembryonic Ag (0.0-4.9) ng/mL 01/04/23 Range/Units 13:11 Neutrophils # (1.3-7.7) k/uL Lymphocytes # (1.0-4.8) k/uL Sodium (137-145) mmol/L BUN (7-17) mg/dL Glucose (74-99) mg/dL Calcium (8.4-10.2) mg/dL C-Reactive Protein (<1.0) mg/dL Total Protein (6.3-8.2) g/dL Albumin (3.5-5.0) g/dL Amylase (30-110) U/L Carcinoembryonic Ag 125.0 H (0.0-4.9) ng/mL Thrombosis Risk Factor Assmnt - Choose All That Apply Any of the Below Risk Factors Present?: No Other Risk Factors: Yes Each Risk Factor Represents 2 Points: Age 61-74 years Other congenital or acquired thrombophilia - If yes, enter type in comment: No Thrombosis Risk Factor Assessment Total Risk Factor Score: 2 Thrombosis Risk Factor Assessment Level: Low Risk
--- NOTE | 2023-01-05 20:34 | XR ---
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 FINDINGS: Lungs/Pleura: There is no evidence of pleural effusion, focal consolidation, or pneumothorax. Pulmonary vascularity: Unremarkable. Heart/mediastinum: Cardiomediastinal silhouette is unremarkable. Musculoskeletal: No acute osseous pathology. Other findings: None Lines/Tubes: Endotracheal tube with distal tip 5. Cm above the avel. Nasogastric tube with its distal tip and side-port projecting under the diaphragm and projecting over the gastric lumen. Right internal jugular central venous catheter with distal tip at the cavoatrial junction. IMPRESSION: Right jugular central venous catheter tip in appropriate position. Support tubes in appropriate posit ion. No pneumothorax.
[2023-01-05 21:48] LABS: ABG HCO3 25 mmol/L (21-25); ABG Oxygen Saturation 99.8 % (94-97); ABG PCO2 41 mmHg (35-45); ABG PH 7.39 (7.35-7.45); ABG PO2 398 mmHg (83-108); ABG TCO2 26 mmol/L (19-24); Allen Test Performed? Yes
[2023-01-05 21:50] LABS: Basophils % (A) 0 %; Eosinophils % (A) 0 %; HCT 28.7 % (34.0-46.0); Hypochromasia Slight; Lymphocytes # (A) 0.3 k/uL (1.0-4.8); Lymphocytes % (A) 2 %; MCH 27.5 pg (25.0-35.0); MCHC 31.6 g/dL (31.0-37.0); Mean Platelet Volume 6.9; Monocytes # (A) 0.2 k/uL (0-1.0); Monocytes % (A) 1 %; Neutrophils # (A) 15.8 k/uL (1.3-7.7); Neutrophils % (A) 96 %; Platelet Count 283 k/uL (150-450); RDW 15.5 % (11.5-15.5); WBC 16.4 k/uL (3.8-10.6)
[2023-01-05 21:53] LABS: HGB 9.1 gm/dL (11.4-16.0)
[2023-01-05 21:57] LABS: African American GFR (CKD) 81 (>60 ml/min/1.73 sqM); Anion Gap 6 mmol/L; Blood Urea Nitrogen 21 mg/dL (7-17); Calcium 7.8 mg/dL (8.4-10.2); Carbon Dioxide 23 mmol/L (22-30); Chloride 98 mmol/L (98-107); Glucose 81 mg/dL (74-99); Magnesium 1.7 mg/dL (1.6-2.3); Non-African American GFR(CKD) 70 (>60 ml/min/1.73 sqM); Potassium 4.4 mmol/L (3.5-5.1); Sodium 127 mmol/L (137-145)
[2023-01-06 00:10] LABS: Glucose,Whole Blood 97 mg/dL (70-110)
--- NOTE | 2023-01-06 03:38 | P.CNPUL ---
History of Present Illness Consult date: 01/06/23 Requesting physician: Scout Turner Reason for consult: other (ICU management) Chief complaint: Abdominal pain History of present illness: I am seeing this patient in new consultation today 01/06/2023 in the intensive care unit status post operative day #1 following an exploratory laparotomy and sigmoid resection with end colostomy. Patient is a 72-year-old white female with a limited past medical history. She is an ex-smoker. She is currently intubated to the mechanical ventilator and unable to provide information. Apparently, the patient has been having ongoing abdominal pain for the past several months. It had worsened over the last 1-2 days, and she came to the emergency room on January 04. Abdominal CT showed a markedly abnormal sigmoid colon with dilation and definition of the wall likely secondary to marked inflammation either secondary to diverticulitis, however, neoplasm was not excluded. There was a proximal colon dilation with marked feces. No small bowel obstruction. There was a small amount of free intraperitoneal air. Patient went for an exploratory laparotomy last night. The patient was found to have obstructive tumor with invasion to surrounding tissue, presumably colon cancer. There was inflammation of the sigmoid colon and pus within the pelvis. The patient underwent sigmoid resection with end colostomy. Postoperatively, the patient was left intubated and transferred to the intensive care unit. No obvious intraoperative complications reported. Patient is currently in the intensive care unit, intubated mechanical ventilator, and synchronous. Postintubation chest x-ray shows endotracheal tube approximately 5.5 cm from the avel. There is an orogastric tube in the stomach. There is no focal infiltrate or evidence of pneumonia. Current ventilator settings are assist control, respiratory 14, title volume 350, FiO2 50%, and PEEP of 5. ABGs on these settings with an FiO2 of 100% show a PaO2 of 398, pCO2 41, pH is 7.39. Patient is synchronous with the ventilator, and sedated on propofol which is currently infusing at 30 mcg/kg/m. Postoperative CBC shows a WBC count of 16.4, hemoglobin 9.1, hematocrit 28.7, platelets 283. Postoperative BMP shows a sodium 127, potassium 4.4, chloride 98, serum bicarb 23, BUN 21, creatinine 1. 0.85, glucose 81. Normal saline is infusing at 130 ML's per hour through a right IJ triple-lumen catheter. Patient is empirically being covered on meropenem. Afebrile. Right upper quadrant ostomy appears viable. No output yet. Midline abdominal incisional dressing is clean, dry. Abdominal incision is approximated. Orogastric tube to lower abdomen and suctioned. Minimal output. There is a TANA drain with a moderate amount of serosanguineous output. Blood pressure is normotensive, no vasopressors. Patient will be monitored in the intensive care unit. Review of Systems ROS unobtainable: due to endotracheal tube Past Medical History Past Medical History: No Reported History History of Any Multi-Drug Resistant Organisms: None Reported Past Surgical History: Adenoidectomy, Appendectomy, Tonsillectomy Past Anesthesia/Blood Transfusion Reactions: Unable to Obtain Past Psychological History: No Psychological Hx Reported Smoking Status: Former smoker Past Alcohol Use History: None Reported Past Drug Use History: None Reported Medications and Allergies Home Medications Medication Instructions Recorded Confirmed Type No Known Home Medications 01/04/23 01/04/23 History Allergies Allergy/AdvReac Type Severity Reaction Status Date / Time No Known Allergies Allergy Verified 01/04/23 15:59 Physical Exam Vitals: Vital Signs Temp Pulse Pulse Resp BP BP Pulse Ox 01/06/23 03:00 90 14 103/67 99 01/06/23 02:00 89 14 109/63 99 01/06/23 01:00 89 14 100/67 99 01/06/23 00:00 97.0 F L 89 14 101/63 99 01/05/23 23:39 01/05/23 23:00 93 14 108/62 100 01/05/23 22:00 90 14 159/106 100 01/05/23 21:51 01/05/23 21:32 01/05/23 21:05 83 14 146/74 100 01/05/23 20:50 86 14 137/71 100 01/05/23 20:35 87 14 131/68 100 01/05/23 20:20 86 14 134/67 100 01/05/23 20:10 01/05/23 20:05 85 14 107/59 100 01/05/23 17:55 101 H 16 139/71 99 01/05/23 17:01 99.9 F H 106 H 16 164/84 94 L 01/05/23 13:07 99.0 F 95 18 119/68 95 01/05/23 07:20 98.8 F 95 18 137/81 96 FiO2 01/06/23 03:00 35 01/06/23 02:00 35 01/06/23 01:00 35 01/06/23 00:00 35 01/05/23 23:39 35 01/05/23 23:00 50 01/05/23 22:00 50 01/05/23 21:51 50 01/05/23 21:32 100 01/05/23 21:05 100 01/05/23 20:50 100 01/05/23 20:35 100 01/05/23 20:20 100 01/05/23 20:10 100 01/05/23 20:05 100 01/05/23 17:55 01/05/23 17:01 01/05/23 13:07 01/05/23 07:20 Intake and Output 01/05/23 01/05/23 01/06/23 14:59 22:59 06:59 Intake Total 2188 733.663 Output Total 315 300 Balance 1873 433.663 Intake: IV 2188 716 Meropenem 1 gm In Sodium 33 66 Chloride 0.9% 100 ml @ 33 .333 mls/hr IVPB Q8HR@ 0600,1400,2200 PARUL Rx#: [id number] Sodium Chloride 0.9% 1, 130 650 000 ml @ 130 mls/hr IV . [id number] PARUL Rx#:[id number] Intake, IV Titration 17.663 Amount propofoL 1,000 mg In 17.663 Empty Bag 1 bag @ 15 MCG/ KG/MIN 4.491 mls/hr IV . [id number] PARUL Rx#:[id number] Output: Drainage 60 Medial Abdomen 60 Urine 215 240 Estimated Blood Loss 100 Other: Voiding Method Indwelling Catheter # Voids 1 3 # Bowel Movements 0 3 Weight 49.895 kg GENERAL EXAM: Unresponsive and sedated on the mechanical ventilator, synchronous. HEAD: Normocephalic and atraumatic EYES: Normal reaction of pupils, equal size. NOSE: Clear with pink turbinates. THROAT: No erythema or exudates. NECK: No masses, no JVD. CHEST: No chest wall deformity. LUNGS: Equal air entry with no crackles, wheeze, rhonchi or dullness. Intubated on the mechanical ventilator. CVS: S1 and S2 normal with no audible murmur, regular rhythm. No extra heart sounds ABDOMEN: There is a midline abdominal incision incisional dressing clean, dry. Approximated. JVP is compressed with a moderate amount of serosanguineous output. No active bowel sounds. Abdomen is soft. Ostomy appears viable, without any output as of yet SPINE: No scoliosis or deformity SKIN: No rashes CENTRAL NERVOUS SYSTEM: No focal deficits, tone is normal in all 4 extremities. EXTREMITIES: There is no peripheral edema, clubbing, or cyanosis. Peripheral pulses are intact. Results - Laboratory Findings CBC and BMP: 01/05/23 21:26 01/05/23 21:26 ABG ABG pH 7.39 (7.35-7.45) 01/05/23 21:46 ABG pCO2 41 mmHg (35-45) 01/05/23 21:46 ABG pO2 398 mmHg (83-108) H 01/05/23 21:46 ABG O2 Saturation 99.8 % (94-97) H 01/05/23 21:46 PT/INR, D-dimer PT 11.5 sec (9.0-12.0) 01/05/23 14:30 INR 1.1 (<1.2) 01/05/23 14:30 Abnormal lab findings: Abnormal Labs 01/04/23 01/04/23 01/04/23 13:11 13:11 13:11 WBC RBC Hgb Hct Neutrophils # 8.9 H Lymphocytes # 0.4 L ABG pO2 ABG Total CO2 ABG O2 Saturation Sodium 132 L BUN 21 H Glucose 116 H Calcium 8.1 L C-Reactive Protein 13.4 H Total Protein 5.6 L Albumin 2.6 L Amylase <30 L Carcinoembryonic Ag 01/04/23 01/05/23 01/05/23 13:11 21:26 21:26 WBC 16.4 H RBC 3.30 L Hgb 9.1 L D Hct 28.7 L Neutrophils # 15.8 H Lymphocytes # 0.3 L ABG pO2 ABG Total CO2 ABG O2 Saturation Sodium 127 L BUN 21 H Glucose Calcium 7.8 L C-Reactive Protein Total Protein Albumin Amylase Carcinoembryonic Ag 125.0 H 01/05/23 21:46 WBC RBC Hgb Hct Neutrophils # Lymphocytes # ABG pO2 398 H ABG Total CO2 26 H ABG O2 Saturation 99.8 H Sodium BUN Glucose Calcium C-Reactive Protein Total Protein Albumin Amylase Carcinoembryonic Ag - Diagnostic Findings Chest x-ray: image reviewed Assessment and Plan Assessment: Obstructing rectosigmoid tumor with perforation status post operative day #1 following an exploratory laparotomy and sigmoid resection with end colostomy. Abdominal sepsis, without signs of shock, no vasopressors required Leukocytosis, secondary to above Acute blood loss anemia, expected outcome of surgery, stable Mechanical ventilator management, post surgery Ex-tobacco smoker Plan: Patient's medications, labs, chest x-ray reviewed Continue on the mechanical ventilator Endotracheal tube to be advanced 1 cm Wean FiO2 as tolerated Plan for sedation holiday in the morning to assess readiness for extubation Repeat chest x-ray in the morning Continue empiric antibiotics Pain appears well-managed with current analgesics Blood cultures pending Cytology is pending Consult oncology Protonix for GI prophylaxis, and DVT prophylaxis per surgery SCDs are on We will continue to follow the patient will intensive care unit, and further recommendations are forthcoming I have personally seen and examined the patient, performed the documentation and the assessment and plan as written. Number of minutes spent on the visit:20 Time with Patient: Greater than 30
[2023-01-06 05:14] LABS: Basophils % (A) 0 %; Eosinophils % (A) 0 %; HCT 30.4 % (34.0-46.0); HGB 9.4 gm/dL (11.4-16.0); Hypochromasia Slight; Lymphocytes # (A) 0.6 k/uL (1.0-4.8); Lymphocytes % (A) 3 %; MCH 26.8 pg (25.0-35.0); MCHC 30.9 g/dL (31.0-37.0); MCV 86.5 fL (80.0-100.0); Mean Platelet Volume 6.8; Monocytes # (A) 0.2 k/uL (0-1.0); Monocytes % (A) 1 %; Neutrophils # (A) 16.8 k/uL (1.3-7.7); Neutrophils % (A) 95 %; Platelet Count 335 k/uL (150-450); RBC 3.52 m/uL (3.80-5.40); RDW 15.7 % (11.5-15.5); WBC 17.6 k/uL (3.8-10.6)
[2023-01-06] MEDS: SODIUM CHLORIDE 0.9% 1,000 ML IV SCH ×2 (05:16→16:54)
[2023-01-06 05:17] LABS: ALT 8 U/L (4-34); AST 16 U/L (14-36); African American GFR (CKD) 62 (>60 ml/min/1.73 sqM); Alkaline Phosphatase 93 U/L (38-126); Anion Gap 4 mmol/L; Blood Urea Nitrogen 23 mg/dL (7-17); Carbon Dioxide 25 mmol/L (22-30); Chloride 100 mmol/L (98-107); Glucose 86 mg/dL (74-99); Non-African American GFR(CKD) 54 (>60 ml/min/1.73 sqM); Potassium 4.5 mmol/L (3.5-5.1); Sodium 129 mmol/L (137-145); Total Bilirubin 1.5 mg/dL (0.2-1.3); Total Protein 4.5 g/dL (6.3-8.2)
[2023-01-06] MEDS: MEROPENEM 1 GM in SODIUM CHLORIDE 0.9% 100 ML IVPB SCH ×3 (05:17→22:55)
[2023-01-06 05:25] LABS: ABG Base Excess -1.5 mmol/L; ABG HCO3 23 mmol/L (21-25); ABG Oxygen Saturation 99.1 % (94-97); ABG PCO2 36 mmHg (35-45); ABG PH 7.42 (7.35-7.45); ABG PO2 142 mmHg (83-108); ABG TCO2 24 mmol/L (19-24); Allen Test Performed? Yes
--- NOTE | 2023-01-06 07:00 | XR ---
EXAMINATION TYPE: XR chest 1V portable DATE OF EXAM: 01/06/2023 6:51 AM COMPARISON: Chest radiographs from 01/05/2023 TECHNIQUE: XR chest 1V portable Portable AP radiograph of the chest. CLINICAL INDICATION:Female, 72 years old with history of Tube placement; FINDINGS: Lungs/Pleura: There is no evidence of pleural effusion, focal consolidation, or pneumothorax. Hyperi nflation. Pulmonary vascularity: Unremarkable. Heart/mediastinum: Cardiomediastinal silhouette is unremarkable. Atherosclerotic calcifications are seen in the aorta. Musculoskeletal: No acute osseous pathology. Other findings: None Lines/Tubes: Stable endotracheal tube, enteric tube, right IJ central venous catheter. Side hole of the enteric tu be terminates at the distal esophagus. IMPRESSION: 1. Stable endotracheal and right IJ central venous catheter. Enteric tube demonstrated with sidehole in the distal esophagus. Recommend advancement of approximately 5 cm. 2. COPD changes.
[2023-01-06] MEDS: PANTOPRAZOLE 40 MG/10 ML VIAL IV SCH ×2 (08:32→08:42)
[2023-01-06] MEDS: HYDROmorphone 1 MG/ML 1 ML SYRINGE IVP PRN ×2 (08:41→13:47)
[2023-01-06] MEDS: CHLORHEXIDINE GLUCONATE 15 ML CUP MUCOUS MEM SCH ×2 (08:48→20:29)
[2023-01-06] MEDS ORDERED: SODIUM CHLORIDE 0.9% 1,000 ML IV ONE (09:00)
[2023-01-06] MEDS: MORPHINE SULFATE 2 MG/ML SYRINGE IV PRN ×2 (10:32→20:29)
[2023-01-06 11:38] LABS: Glucose,Whole Blood 74 mg/dL (70-110)
--- NOTE | 2023-01-06 13:01 | P.PN ---
Subjective Progress Note Date: 01/06/23 CHIEF COMPLAINT: Obstructing rectosigmoid cancer with perforation HISTORY OF PRESENT ILLNESS: Patient status post exploratory laparotomy and sigmoid resection with end colostomy. Patient in the ICU. She was extubated today. She reports her pain is controlled. Afebrile. WBC is elevated at 17.6 Hgb 9.4 platelets 335 sodium is 129 potassium 4.5 creatinine 1.05 TANA drain 60 mL serosanguineous output PHYSICAL EXAM: VITAL SIGNS: Reviewed. GENERAL: Well-developed in no acute distress. ABDOMEN: Soft. Nondistended. Tender incision site. Incisional dressing clean dry and intact. Ostomy on the left stoma is pink. No stool noted. TANA drain serosanguineous output NEUROLOGIC: Alert and oriented. Cranial nerves II through XII grossly intact. ASSESSMENT: 1. Obstructing rectosigmoid cancer with perforation status post Exploratory laparotomy and sigmoid resection with end colostomy PLAN: -Keep patient nothing by mouth -Continue ICU management -Continue supportive care -Continue pain medication as needed -Continue IV fluids -Continue antibiotics -GI prophylaxis Protonix -DVT prophylaxis subcu heparin Physician Dental Biller note has been reviewed by physician. Signing provider agrees with the documented findings, assessment, and plan of care. Objective - Vital Signs Vital signs: Vital Signs Temp 97.6 F 01/06/23 08:00 Pulse 93 01/06/23 11:00 Resp 14 01/06/23 11:00 BP 169/91 01/06/23 11:00 Pulse Ox 99 01/06/23 11:00 FiO2 30 01/06/23 09:17 Intake & Output 01/05/23 01/06/23 01/06/23 18:59 06:59 18:59 Intake Total 1000 2395.554 1832.185 Output Total 715 95 Balance 1000 8865.095 9129.185 Weight 49.895 kg 55.9 kg Intake: IV 1000 2327 1813 Meropenem 1 gm In Sodium 132 33 Chloride 0.9% 100 ml @ 33 .333 mls/hr IVPB Q8HR@ 0600,1400,2200 [facility] Rx#: [id number] Sodium Chloride 0.9% 1, 1170 780 000 ml @ 130 mls/hr IV . Q7H42M [facility] Rx#:[id number] Sodium Chloride 0.9% 1, 1000 000 ml @ 999 mls/hr IV . Q1H1M [facility] Rx#:[id number] Intake, IV Titration 68.554 19.185 Amount propofoL 1,000 mg In 68.554 19.185 Empty Bag 1 bag @ 15 MCG/ KG/MIN 4.491 mls/hr IV . [id number] [facility] Rx#:[id number] Output: Drainage 60 Medial Abdomen 60 Urine 555 95 Estimated Blood Loss 100 Other: Voiding Method Indwelling Catheter Indwelling Catheter # Voids 3 # Bowel Movements 3 - Labs CBC & Chem 7: 01/06/23 04:52 01/06/23 04:52 Labs: Abnormal Lab Results - Last 24 Hours (Table) 01/05/23 01/05/23 01/05/23 Range/Units 21:26 21:26 21:46 WBC 16.4 H (3.8-10.6) k/uL RBC 3.30 L (3.80-5.40) m/uL Hgb 9.1 L D (11.4-16.0) gm/dL Hct 28.7 L (34.0-46.0) % MCHC (31.0-37.0) g/dL RDW (11.5-15.5) % Neutrophils # 15.8 H (1.3-7.7) k/uL Lymphocytes # 0.3 L (1.0-4.8) k/uL ABG pO2 398 H (83-108) mmHg ABG Total CO2 26 H (19-24) mmol/L ABG O2 Saturation 99.8 H (94-97) % Sodium 127 L (137-145) mmol/L BUN 21 H (7-17) mg/dL Creatinine (0.52-1.04) mg/dL Calcium 7.8 L (8.4-10.2) mg/dL Total Bilirubin (0.2-1.3) mg/dL Total Protein (6.3-8.2) g/dL Albumin (3.5-5.0) g/dL 01/06/23 01/06/23 01/06/23 Range/Units 04:52 04:52 05:25 WBC 17.6 H (3.8-10.6) k/uL RBC 3.52 L (3.80-5.40) m/uL Hgb 9.4 L (11.4-16.0) gm/dL Hct 30.4 L (34.0-46.0) % MCHC 30.9 L (31.0-37.0) g/dL RDW 15.7 H (11.5-15.5) % Neutrophils # 16.8 H (1.3-7.7) k/uL Lymphocytes # 0.6 L (1.0-4.8) k/uL ABG pO2 142 H (83-108) mmHg ABG Total CO2 (19-24) mmol/L ABG O2 Saturation 99.1 H (94-97) % Sodium 129 L (137-145) mmol/L BUN 23 H (7-17) mg/dL Creatinine 1.05 H (0.52-1.04) mg/dL Calcium 8.0 L (8.4-10.2) mg/dL Total Bilirubin 1.5 H (0.2-1.3) mg/dL Total Protein 4.5 L (6.3-8.2) g/dL Albumin 2.0 L (3.5-5.0) g/dL Microbiology - Last 24 Hours (Table) 01/04/23 17:23 Blood Culture Gram Stain - Preliminary Blood Blood Culture - Preliminary Gram Neg Bacilli
[2023-01-06] MEDS ORDERED: FUROSEMIDE 10 MG/ML 4 ML VIAL IV STA (13:36)
--- NOTE | 2023-01-06 14:11 | P.PN ---
Progress Note - Text Progress Note Date: 01/06/23 Chief Complaint: Abdominal pain Very pleasant 72-year-old patient, otherwise in good health. 2 months ago patient says been having some abdominal pain off and on. Abdominal pain become much worse yesterday. Patient bowel movements for other regular 2 months ago. Started having the last 2 months sometimes mushy bowel movement sometimes more regular. Patient's had decreased appetite. Lost about 20 pounds. No nausea vomiting. No fever no chills. Computed tomography scan the ER showed some thickening. In the colon. Pending surgery this afternoon January 06: ICU. 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 Patient underwent sigmoid resection with end colostomy. Evidence of cross tumor spread on the lateral pelvic keller. No output from the colostomy. Nothing by mouth. Patient has a TANA drain. Georges catheter. IV meropenem. Active Medications Acetaminophen (Acetaminophen Tab 325 Mg Tab) 650 mg PO Q6HR PRN PRN Reason: Mild Pain or Fever > 100.5 Hydrocodone Bitart/Acetaminophen (Hydrocodone/Apap 5-325mg 1 Each Tab) 1 each PO Q4HR PRN PRN Reason: Moderate Pain (Scale 4 to 6) Chlorhexidine Gluconate (Chlorhexidine Gluconate 15 Ml Cup) 15 ml MUCOUS MEM BID [facility] Last Admin: 01/06/23 08:48 Dose: 15 ml Heparin Sodium (Porcine) (Heparin Sodium,Porcine 5,000 Unit/Ml 1 Ml Vial) 5,000 unit SQ Q12HR [facility] Hydromorphone HCl (Hydromorphone 1 Mg/Ml 1 Ml Syringe) 1 mg IVP Q4HR PRN PRN Reason: Severe Pain (Scale 7 to 10) Last Admin: 01/06/23 13:47 Dose: 1 mg Sodium Chloride (Saline 0.9%) 1,000 mls @ 130 mls/hr IV .Q7H42M [facility] Last Admin: 01/06/23 05:16 Dose: 130 mls/hr Meropenem 1 gm/ Sodium (Chloride) 100 mls @ 33.333 mls/hr IVPB Q8HR@0600,1400,2200 [facility] Last Admin: 01/06/23 05:17 Dose: 33.333 mls/hr Morphine Sulfate (Morphine Sulfate 2 Mg/Ml Syringe) 1 mg IV Q4HR PRN PRN Reason: Severe Pain (Scale 7 to 10) Last Admin: 01/06/23 10:32 Dose: 1 mg Naloxone HCl (Naloxone 0.4 Mg/Ml 1 Ml Vial) 0.2 mg IV Q2M PRN PRN Reason: Opioid Reversal Naloxone HCl (Naloxone 0.4 Mg/Ml 1 Ml Vial) 0.2 mg IV Q2M PRN PRN Reason: Opioid Reversal Ondansetron HCl (Ondansetron 4 Mg/2 Ml Vial) 4 mg IVP Q8HR PRN PRN Reason: Nausea And Vomiting Last Admin: 01/06/23 08:57 Dose: 4 mg Ondansetron HCl (Ondansetron 4 Mg/2 Ml Vial) 4 mg IVP Q6HR PRN PRN Reason: Nausea And Vomiting Pantoprazole Sodium (Pantoprazole 40 Mg/10 Ml Vial) 40 mg IV DAILY [facility] Last Admin: 01/06/23 08:42 Dose: 40 mg Pantoprazole Sodium (Pantoprazole 40 Mg/10 Ml Vial) 40 mg IV DAILY [facility] Last Admin: 01/06/23 08:32 Dose: Not Given Past medical history to include: Unremarkable Social history: . Smoker. No alcohol. Physical examination: VITAL SIGNS: 97.8, 91, 12, 153/79, 92% room air GENERAL: Laying in bed, tired. EYES: Pupils equal. Conjunctiva pale. HEENT: External appearance of nose and ears normal, oral cavity grossly normal. NECK: JVD not raised; masses not palpable. HEART: First and second heart sounds are normal; no edema. LUNGS: Respiratory rate normal; clear to auscultation. ABDOMEN: Soft, tenderness, liver spleen not palpable, colostomy bag-no output. Right abdominal incision with dressing. ATNA drain PSYCH: Alert and oriented x3; mood and affect anxious. MUSCULOSKELETAL:No Clubbing/cyanosis;muscles-grossly intact. OA INVESTIGATIONS, reviewed in the clinical context: Blood culture [January 04] gram-negative bacilli January 06: White count 7.6 hemoglobin 9.4 platelets 335 sodium 129 potassium 4.5 BUN 23 creatinine 1.05 albumin 2.0 White count 9.6 hemoglobin 11.6 platelets 385 sodium 132 potassium 3.8 BUN 21 creatinine 0.67 CRP 13.4 albumin 2.[address] abdomen and pelvis with contrast: Left kidney descended into his left pelvis marked amount of stool within the colon marked sigmoid wall thickening. Assessment and plan: -Acute bowel obstruction from large fungating sigmoid colon tumor creating obstruction and perforation. Status post surgery. Colostomy created-no output Nothing by mouth -Probable secondary peritonitis from perforation, causing sepsis with blood culture positive for gram-negative bacilli IV meropenem -Large fungating sigmoid colon tumor creating obstruction and perforation. January 05: sigmoid resection with end colostomy. Evidence of tumor spread on the lateral pelvic keller.-January [address] Turner -Acute postprocedure blood loss anemia expected from surgery IV Ferrlecit -Severe protein calorie malnutrition from decreased oral intake -Mild hyponatremia IV fluids Care was discussed with the patient. Pending surgery this afternoon. Questions answered Past Medical History Past Medical History: No Reported History History of Any Multi-Drug Resistant Organisms: None Reported Past Surgical History: Adenoidectomy, Appendectomy, Tonsillectomy Past Anesthesia/Blood Transfusion Reactions: Unable to Obtain Past Psychological History: No Psychological Hx Reported Smoking Status: Former smoker Past Alcohol Use History: None Reported Past Drug Use History: None Reported Medications and Allergies Home Medications Medication Instructions Recorded Confirmed Type No Known Home Medications 01/04/23 01/04/23 History Allergies Allergy/AdvReac Type Severity Reaction Status Date / Time No Known Allergies Allergy Verified 01/04/23 15:59 Physical Exam Vitals: Vital Signs Temp Pulse Pulse Resp BP BP Pulse Ox 01/05/23 07:20 98.8 F 95 18 137/81 96 01/05/23 02:00 98.9 F 97 16 128/82 97 01/04/23 21:00 99.0 F 73 16 142/86 96 01/04/23 17:30 98.6 F 78 149/104 98 01/04/23 17:00 97 01/04/23 16:30 164/121 90 L 01/04/23 16:00 140/127 78 L 01/04/23 12:30 175/89 01/04/23 12:01 175/89 01/04/23 12:00 156/87 100 01/04/23 11:55 97.8 F 77 16 99 Intake and Output 01/04/23 01/05/23 01/05/23 22:59 06:59 14:59 Other: Voiding Method Bedside Commode # Voids 1 1 # Bowel Movements 2 0 Weight 49.895 kg Results CBC & Chem 7: 01/04/23 13:11 01/04/23 13:11 Labs: Abnormal Lab Results - Last 24 Hours (Table) 01/04/23 01/04/23 01/04/23 Range/Units 13:11 13:11 13:11 Neutrophils # 8.9 H (1.3-7.7) k/uL Lymphocytes # 0.4 L (1.0-4.8) k/uL Sodium 132 L (137-145) mmol/L BUN 21 H (7-17) mg/dL Glucose 116 H (74-99) mg/dL Calcium 8.1 L (8.4-10.2) mg/dL C-Reactive Protein 13.4 H (<1.0) mg/dL Total Protein 5.6 L (6.3-8.2) g/dL Albumin 2.6 L (3.5-5.0) g/dL Amylase <30 L (30-110) U/L Carcinoembryonic Ag (0.0-4.9) ng/mL 01/04/23 Range/Units 13:11 Neutrophils # (1.3-7.7) k/uL Lymphocytes # (1.0-4.8) k/uL Sodium (137-145) mmol/L BUN (7-17) mg/dL Glucose (74-99) mg/dL Calcium (8.4-10.2) mg/dL C-Reactive Protein (<1.0) mg/dL Total Protein (6.3-8.2) g/dL Albumin (3.5-5.0) g/dL Amylase (30-110) U/L Carcinoembryonic Ag 125.0 H (0.0-4.9) ng/mL Thrombosis Risk Factor Assmnt - Choose All That Apply Any of the Below Risk Factors Present?: No Other Risk Factors: Yes Each Risk Factor Represents 2 Points: Age 61-74 years Other congenital or acquired thrombophilia - If yes, enter type in comment: No Thrombosis Risk Factor Assessment Total Risk Factor Score: 2 Thrombosis Risk Factor Assessment Level: Low Risk Additional CC's: Jung Nunez
--- NOTE | 2023-01-06 15:08 | P.CONS ---
History of Present Illness - Reason for Consult Consult date: 01/06/23 colon mass Requesting physician: Jung Lau - Chief Complaint abdominal pain - History of Present Illness Patient is a 72-year-old female with recently diagnosed sigmoid colon mass highly suspicious for malignancy. Patient presented to the ER for ongoing RLQ abdominal pain for the last 2 months with increasing frequency of loose stools. Denies nausea vomiting. Denies blood in stool and melena. Upon admission CT abdomen pelvis revealed markedly abnormal sigmoid colon with dilatation and ill- definition of the wall. Proximal colon prominent in size with marked feces. No small bowel obstruction noted. Tiny amount of free intraperitoneal peritoneal air and small amount of ascites. Patient underwent exploratory laparotomy on 01/[address] Turner, revealing fungating tumor extending off the serosal surface of the sigmoid colon. Sigmoid colon was adherent to the right side of the uterus and evidence of gross tumor spread on the lateral pelvic keller. Sigmoid resection was performed with end colostomy placed. CEA elevated at 125. CBC reviewed, WBC 17.6, hemoglobin 9.4, platelets 335,000. Blood culture positive for gram-negative bacilli. Patient afebrile. Continues on IV antibiotics. Patient was seen in the ICU at today's visit, she was extubated this morning. Patient is reporting sore throat and generalized abdominal discomfort. Upon discussing results of CT scan, surgery findings and concern for malignancy patient became notably upset and states "this is just too much information for me." Discussion regarding the same was stopped, and patient was asked if she would like to have a family meeting tomorrow so spouse and family can be present to further discuss diagnosis/findings, and she was agreeable. RN notified to contact family for family meeting tomorrow morning. Review of Systems 10 point ROS is negative except as stated in the HPI Past Medical History Past Medical History: No Reported History History of Any Multi-Drug Resistant Organisms: None Reported Past Surgical History: Adenoidectomy, Appendectomy, Tonsillectomy Past Anesthesia/Blood Transfusion Reactions: Unable to Obtain Past Psychological History: No Psychological Hx Reported Smoking Status: Former smoker Past Alcohol Use History: None Reported Past Drug Use History: None Reported Medications and Allergies Home Medications Medication Instructions Recorded Confirmed Type No Known Home Medications 01/04/23 01/04/23 History Allergies Allergy/AdvReac Type Severity Reaction Status Date / Time No Known Allergies Allergy Verified 01/04/23 15:59 Physical Exam Vitals: Vital Signs Temp Pulse Pulse Resp BP BP Pulse Ox 01/06/23 11:00 93 14 169/91 99 01/06/23 10:00 91 16 122/63 100 01/06/23 09:17 01/06/23 09:00 87 19 110/74 91 L 01/06/23 08:00 97.6 F 83 17 103/71 99 01/06/23 07:52 01/06/23 07:00 86 15 106/65 99 01/06/23 06:00 82 21 112/64 100 01/06/23 05:00 87 19 117/71 99 01/06/23 04:00 89 14 107/72 99 01/06/23 03:58 01/06/23 03:00 90 14 103/67 99 01/06/23 02:00 89 14 109/63 99 01/06/23 01:00 89 14 100/67 99 01/06/23 00:00 97.0 F L 89 14 101/63 99 01/05/23 23:39 01/05/23 23:00 93 14 108/62 100 01/05/23 22:00 90 14 159/106 100 01/05/23 21:51 01/05/23 21:32 01/05/23 21:05 83 14 146/74 100 01/05/23 20:50 86 14 137/71 100 01/05/23 20:35 87 14 131/68 100 01/05/23 20:20 86 14 134/67 100 01/05/23 20:10 01/05/23 20:05 85 14 107/59 100 01/05/23 17:55 101 H 16 139/71 99 01/05/23 17:01 99.9 F H 106 H 16 164/84 94 L 01/05/23 13:07 99.0 F 95 18 119/68 95 FiO2 01/06/23 11:00 01/06/23 10:00 01/06/23 09:17 30 01/06/23 09:00 01/06/23 08:00 30 01/06/23 07:52 30 01/06/23 07:00 30 01/06/23 06:00 30 01/06/23 05:00 35 01/06/23 04:00 35 01/06/23 03:58 30 01/06/23 03:00 35 01/06/23 02:00 35 01/06/23 01:00 35 01/06/23 00:00 35 01/05/23 23:39 35 01/05/23 23:00 50 01/05/23 22:00 50 01/05/23 21:51 50 01/05/23 21:32 100 01/05/23 21:05 100 01/05/23 20:50 100 01/05/23 20:35 100 01/05/23 20:20 100 01/05/23 20:10 100 01/05/23 20:05 100 01/05/23 17:55 01/05/23 17:01 01/05/23 13:07 Intake and Output 01/05/23 01/06/23 01/06/23 22:59 06:59 14:59 Intake Total 2188 9144.551 1343.185 Output Total 315 400 95 Balance 1873 341.494 0045.185 Intake: IV 2188 1139 1813 Meropenem 1 gm In Sodium 33 99 33 Chloride 0.9% 100 ml @ 33 .333 mls/hr IVPB Q8HR@ 0600,1400,2200 [facility] Rx#: [id number] Sodium Chloride 0.9% 1, 130 1040 780 000 ml @ 130 mls/hr IV . Q7H42M [facility] Rx#:[id number] Sodium Chloride 0.9% 1, 1000 000 ml @ 999 mls/hr IV . Q1H1M [facility] Rx#:[id number] Intake, IV Titration 68.554 19.185 Amount propofoL 1,000 mg In 68.554 19.185 Empty Bag 1 bag @ 15 MCG/ KG/MIN 4.491 mls/hr IV . [id number] [facility] Rx#:[id number] Output: Drainage 60 Medial Abdomen 60 Urine 215 340 95 Estimated Blood Loss 100 Other: Voiding Method Indwelling Catheter Indwelling Catheter # Voids 3 # Bowel Movements 3 Weight 55.9 kg - Constitutional General appearance: average body habitus, no acute distress - EENT Eyes: anicteric sclerae, EOMI ENT: hearing grossly normal - Respiratory breathing is even and unlabored - Cardiovascular NSR, rate 90 Rhythm: regular - Integumentary Integumentary: no cyanotic, no jaundiced - Musculoskeletal Musculoskeletal: generalized weakness - Psychiatric Psychiatric: A&O x's 3, appropriate affect, intact judgment & insight Results CBC & Chem 7: 01/06/23 04:52 01/06/23 04:52 Labs: Abnormal Lab Results - Last 24 Hours (Table) 01/05/23 01/05/23 01/05/23 Range/Units 21:26 21:26 21:46 WBC 16.4 H (3.8-10.6) k/uL RBC 3.30 L (3.80-5.40) m/uL Hgb 9.1 L D (11.4-16.0) gm/dL Hct 28.7 L (34.0-46.0) % MCHC (31.0-37.0) g/dL RDW (11.5-15.5) % Neutrophils # 15.8 H (1.3-7.7) k/uL Lymphocytes # 0.3 L (1.0-4.8) k/uL ABG pO2 398 H (83-108) mmHg ABG Total CO2 26 H (19-24) mmol/L ABG O2 Saturation 99.8 H (94-97) % Sodium 127 L (137-145) mmol/L BUN 21 H (7-17) mg/dL Creatinine (0.52-1.04) mg/dL Calcium 7.8 L (8.4-10.2) mg/dL Total Bilirubin (0.2-1.3) mg/dL Total Protein (6.3-8.2) g/dL Albumin (3.5-5.0) g/dL 01/06/23 01/06/23 01/06/23 Range/Units 04:52 04:52 05:25 WBC 17.6 H (3.8-10.6) k/uL RBC 3.52 L (3.80-5.40) m/uL Hgb 9.4 L (11.4-16.0) gm/dL Hct 30.4 L (34.0-46.0) % MCHC 30.9 L (31.0-37.0) g/dL RDW 15.7 H (11.5-15.5) % Neutrophils # 16.8 H (1.3-7.7) k/uL Lymphocytes # 0.6 L (1.0-4.8) k/uL ABG pO2 142 H (83-108) mmHg ABG Total CO2 (19-24) mmol/L ABG O2 Saturation 99.1 H (94-97) % Sodium 129 L (137-145) mmol/L BUN 23 H (7-17) mg/dL Creatinine 1.05 H (0.52-1.04) mg/dL Calcium 8.0 L (8.4-10.2) mg/dL Total Bilirubin 1.5 H (0.2-1.3) mg/dL Total Protein 4.5 L (6.3-8.2) g/dL Albumin 2.0 L (3.5-5.0) g/dL Microbiology - Last 24 Hours (Table) 01/04/23 17:23 Blood Culture Gram Stain - Preliminary Blood Blood Culture - Preliminary Gram Neg Bacilli CT scan - abdomen: report reviewed CT scan - pelvis: report reviewed Assessment and Plan (1) Colonic mass Current Visit: Yes Status: Acute Priority: High Code(s): K63.89 - OTHER SPECIFIED DISEASES OF INTESTINE SNOMED Code(s): 839040426 Plan: Sigmoid mass: -Reporting RLQ abdominal pain for the last 2 months with increasing frequency of loose stools. Denies nausea/vomiting, blood in stool and melena. -CT abdomen pelvis revealed markedly abnormal sigmoid colon with dilatation and ill-definition of the wall. Proximal colon prominent in size with marked feces. No small bowel obstruction noted. Tiny amount of free intraperitoneal peritoneal air and small amount of ascites. -Underwent exploratory laparotomy on 01/[address] Turner, revealing fungating tumor extending off the serosal surface of the sigmoid colon. Sigmoid colon was adherent to the right side of the uterus and evidence of gross tumor spread on the lateral pelvic keller. Sigmoid resection was performed with end colostomy placed. -CEA elevated at 125. -Biopsy pending -Upon discussing results of CT scan, surgery findings and concern for malignancy, patient became notably upset and states "this is just too much information for me." Discussion regarding the same was stopped, and patient was asked if she would like to have a family meeting tomorrow so spouse and family can be present to further discuss diagnosis/findings, and she was agreeable. RN notified to contact family for family meeting tomorrow morning. -Will plan for PET CT in 3-4 weeks and f/u with Dr. Keena Mckee. NGS and PD- L1 will be requested on pathology -Treatment would be on hold until patient has adequately healed from surgery, typically 4-6 weeks post op attests: I have seen and examined patient, performed H&P, developed impression and plan of care. Discussed with dictator. Agree with documentation, dictated as a scribe
[2023-01-06] MEDS: SODIUM FERRIC GLUCONAT-SUCROSE 125 MG in SODIUM CHLORIDE 0.9% 100 ML IVPB SCH (16:44)
[2023-01-06] MEDS: DEXTROSE 5%-0.45% NACL 1,000 ML IV SCH ×2 (16:45→23:20)
[2023-01-06 17:59] LABS: Glucose,Whole Blood 100 mg/dL (70-110)
[2023-01-06] MEDS: HEPARIN SODIUM,PORCINE 5,000 UNIT/ML 1 ML VIAL SQ SCH (20:28)
[2023-01-07 00:13] LABS: Glucose,Whole Blood 158 mg/dL (70-110)
[2023-01-07] MEDS: MORPHINE SULFATE 2 MG/ML SYRINGE IV PRN ×4 (01:08→23:28)
[2023-01-07 05:14] LABS: Basophils % (A) 0 %; Eosinophils % (A) 0 %; HCT 24.7 % (34.0-46.0); Hypochromasia Slight; Lymphocytes # (A) 0.6 k/uL (1.0-4.8); Lymphocytes % (A) 4 %; MCH 27.2 pg (25.0-35.0); MCHC 31.6 g/dL (31.0-37.0); MCV 85.9 fL (80.0-100.0); Mean Platelet Volume 6.8; Monocytes # (A) 0.3 k/uL (0-1.0); Monocytes % (A) 2 %; Neutrophils # (A) 13.3 k/uL (1.3-7.7); Neutrophils % (A) 93 %; Platelet Count 287 k/uL (150-450); RBC 2.87 m/uL (3.80-5.40); RDW 15.6 % (11.5-15.5); WBC 14.3 k/uL (3.8-10.6)
[2023-01-07 05:25] LABS: African American GFR (CKD) 83 (>60 ml/min/1.73 sqM); Anion Gap 2 mmol/L; Blood Urea Nitrogen 23 mg/dL (7-17); Calcium 7.6 mg/dL (8.4-10.2); Carbon Dioxide 24 mmol/L (22-30); Chloride 102 mmol/L (98-107); Glucose 164 mg/dL (74-99); Non-African American GFR(CKD) 72 (>60 ml/min/1.73 sqM); Potassium 3.9 mmol/L (3.5-5.1); Sodium 128 mmol/L (137-145)
[2023-01-07 05:58] LABS: HGB 7.8 gm/dL (11.4-16.0)
[2023-01-07 06:21] LABS: Glucose,Whole Blood 206 mg/dL (70-110)
[2023-01-07] MEDS: DEXTROSE 5%-0.45% NACL 1,000 ML IV SCH (06:40)
[2023-01-07] MEDS: MEROPENEM 1 GM in SODIUM CHLORIDE 0.9% 100 ML IVPB SCH ×3 (06:59→23:21)
[2023-01-07] MEDS: HYDROmorphone 1 MG/ML 1 ML SYRINGE IVP PRN ×2 (07:27→17:16)
[2023-01-07] MEDS: PANTOPRAZOLE 40 MG/10 ML VIAL IV SCH ×2 (07:57→09:32)
[2023-01-07] MEDS: HEPARIN SODIUM,PORCINE 5,000 UNIT/ML 1 ML VIAL SQ SCH ×2 (09:32→20:13)
[2023-01-07] MEDS: SODIUM FERRIC GLUCONAT-SUCROSE 125 MG in SODIUM CHLORIDE 0.9% 100 ML IVPB SCH (09:32)
[2023-01-07] MEDS: SODIUM CHLORIDE 0.9% 1,000 ML IV SCH ×2 (09:33→17:18)
--- NOTE | 2023-01-07 12:01 | P.PN ---
Subjective Progress Note Date: 01/07/23 Principal diagnosis: Obstructing rectosigmoid tumor with perforation status post operative day #2 following an exploratory laparotomy and sigmoid resection with end colostomy. I am seeing this patient in new consultation today 01/06/2023 in the intensive care unit status post operative day #1 following an exploratory laparotomy and sigmoid resection with end colostomy. Patient is a 72-year-old white female with a limited past medical history. She is an ex-smoker. She is currently intubated to the mechanical ventilator and unable to provide information. Apparently, the patient has been having ongoing abdominal pain for the past several months. It had worsened over the last 1-2 days, and she came to the emergency room on January 04. Abdominal CT showed a markedly abnormal sigmoid colon with dilation and definition of the wall likely secondary to marked inflammation either secondary to diverticulitis, however, neoplasm was not excluded. There was a proximal colon dilation with marked feces. No small bowel obstruction. There was a small amount of free intraperitoneal air. Patient went for an exploratory laparotomy last night. The patient was found to have obstructive tumor with invasion to surrounding tissue, presumably colon cancer. There was inflammation of the sigmoid colon and pus within the pelvis. The patient underwent sigmoid resection with end colostomy. Postoperatively, the patient was left intubated and transferred to the intensive care unit. No obvious intraoperative complications reported. Patient is currently in the intensive care unit, intubated mechanical ventilator, and synchronous. Postintubation chest x-ray shows endotracheal tube approximately 5.5 cm from the avel. There is an orogastric tube in the stomach. There is no focal infiltrate or evidence of pneumonia. Current ventilator settings are assist control, respiratory 14, title volume 350, FiO2 50%, and PEEP of 5. ABGs on these settings with an FiO2 of 100% show a PaO2 of 398, pCO2 41, pH is 7.39. Patient is synchronous with the ventilator, and sedated on propofol which is currently infusing at 30 mcg/kg/m. Postoperative CBC shows a WBC count of 16.4, hemoglobin 9.1, hematocrit 28.7, platelets 283. Postoperative BMP shows a sodium 127, potassium 4.4, chloride 98, serum bicarb 23, BUN 21, creatinine 1. 0.85, glucose 81. Normal saline is infusing at 130 ML's per hour through a right IJ triple-lumen catheter. Patient is empirically being covered on meropenem. Afebrile. Right upper quadrant ostomy appears viable. No output yet. Midline abdominal incisional dressing is clean, dry. Abdominal incision is approximated. Orogastric tube to lower abdomen and suctioned. Minimal output. There is a TANA drain with a moderate amount of serosanguineous output. Blood pressure is normotensive, no vasopressors. Patient will be monitored in the intensive care unit. Reevaluated today on 01/07/2023, patient is now postoperative day #2. Patient is doing well, he was extubated yesterday uneventfully. She is now on room air, complaining of a dry mouth. Patient had poor urine output yesterday after significant amount of fluid boluses, and she was given Lasix and she had a tremendous amount of output after Lasix was given. Today the patient is doing great except for dry mouth, doing poorly with incentive spirometry, her nasogastric tube has been removed. Patient is relatively asymptomatic. WBC count is 14.3 hemoglobin 7.8 sodium is 128 hence I'm changing her IV fluid to 0.9 normal saline at 70 545. And I plan to transfer the patient out of the ICU to a medical surgical floor Objective - Vital Signs Vital signs: Vital Signs Temp 98.8 F 01/07/23 04:00 Pulse 99 01/07/23 11:00 Resp 20 01/07/23 11:00 BP 144/82 01/07/23 11:00 Pulse Ox 96 01/07/23 11:00 FiO2 30 01/06/23 09:17 Intake & Output 01/06/23 01/07/23 01/07/23 18:59 06:59 18:59 Intake Total 2722.185 1375 125 Output Total 1000 675 605 Balance 1722.185 700 -480 Weight 59.6 kg Intake: IV 2703 1375 125 Dextrose 5%-0.45% NaCl 1, 500 1375 125 000 ml @ 125 mls/hr IV . Q8H [facility] Rx#:[id number] Meropenem 1 gm In Sodium 33 Chloride 0.9% 100 ml @ 33 .333 mls/hr IVPB Q8HR@ 0600,1400,2200 [facility] Rx#: [id number] Sodium Chloride 0.9% 1, 1170 000 ml @ 130 mls/hr IV . Q7H42M [facility] Rx#:[id number] Sodium Chloride 0.9% 1, 1000 000 ml @ 999 mls/hr IV . Q1H1M [facility] Rx#:[id number] Intake, IV Titration 19.185 Amount propofoL 1,000 mg In 19.185 Empty Bag 1 bag @ 15 MCG/ KG/MIN 4.491 mls/hr IV . [id number] [facility] Rx#:[id number] Output: Drainage 120 110 75 Medial Abdomen 120 Right Upper Abdomen 110 75 Urine [phone] Other: Voiding Method Indwelling Catheter Indwelling Catheter Indwelling Catheter - Exam Physical Exam: Revealed 72-year-old female in no distress Head: Atraumatic, normocephalic. HEENT:[Neck is supple.] [No neck masses.] [No thyromegaly.] [No JVD.] Right IJ triple-lumen catheter is noted., Dry mucous membranes noted. Chest: [Clear throughout, no crackles, no rhonchi, no wheezes.] Cardiac Exam: [Normal S1 and S2, no S3 gallop, no murmur.] Abdomen: Postsurgical, tender to palpation, [There is a midline abdominal incision incisional dressing clean, dry. Approximated. JVP is compressed with a moderate amount of serosanguineous output. No active bowel sounds. Abdomen is soft. Ostomy appears viable, without any output as of yet Extremities: [No clubbing, no edema, no cyanosis.] Neurological Exam: [No focal neurologic deficit.] Alert oriented 3 Psychiatric: Normal mood affect and normal mental status examination. - Labs CBC & Chem 7: 01/07/23 05:00 01/07/23 05:00 Labs: Abnormal Lab Results - Last 24 Hours (Table) 01/07/23 01/07/23 01/07/23 Range/Units 00:11 05:00 05:00 WBC 14.3 H (3.8-10.6) k/uL RBC 2.87 L (3.80-5.40) m/uL Hgb 7.8 L D (11.4-16.0) gm/dL Hct 24.7 L (34.0-46.0) % RDW 15.6 H (11.5-15.5) % Neutrophils # 13.3 H (1.3-7.7) k/uL Lymphocytes # 0.6 L (1.0-4.8) k/uL Sodium 128 L (137-145) mmol/L BUN 23 H (7-17) mg/dL Glucose 164 H (74-99) mg/dL POC Glucose (mg/dL) 158 H (70-110) mg/dL Calcium 7.6 L (8.4-10.2) mg/dL 01/07/23 Range/Units 06:20 WBC (3.8-10.6) k/uL RBC (3.80-5.40) m/uL Hgb (11.4-16.0) gm/dL Hct (34.0-46.0) % RDW (11.5-15.5) % Neutrophils # (1.3-7.7) k/uL Lymphocytes # (1.0-4.8) k/uL Sodium (137-145) mmol/L BUN (7-17) mg/dL Glucose (74-99) mg/dL POC Glucose (mg/dL) 206 H (70-110) mg/dL Calcium (8.4-10.2) mg/dL Microbiology - Last 24 Hours (Table) 01/04/23 17:23 Blood Culture Gram Stain - Final Blood Blood Culture - Final Escherichia coli Assessment and Plan Assessment: Impression: Obstructing rectosigmoid tumor with perforation status post operative day #2 following an exploratory laparotomy and sigmoid resection with end colostomy. Abdominal sepsis, without signs of shock, no vasopressors required Leukocytosis, secondary to above Acute blood loss anemia, expected outcome of surgery, stable Ex-tobacco smoker Hypovolemic hyponatremia, Recommendation: Continue incentive spirometry Ambulate Continue GI and DVT prophylaxis Surgical pathology and cytology are pending Continue empiric antibiotics Transfer patient out of the ICU to a regular medical floor. We will continue to follow change IV fluid to 0.9 normal saline at 100 mL per Time with Patient: Less than 30
--- NOTE | 2023-01-07 13:25 | P.PN ---
Progress Note - Text Progress Note Date: 01/07/23 Chief Complaint: Abdominal pain Very pleasant 72-year-old patient, otherwise in good health. 2 months ago patient says been having some abdominal pain off and on. Abdominal pain become much worse yesterday. Patient bowel movements for other regular 2 months ago. Started having the last 2 months sometimes mushy bowel movement sometimes more regular. Patient's had decreased appetite. Lost about 20 pounds. No nausea vomiting. No fever no chills. Computed tomography scan the ER showed some thickening. In the colon. Pending surgery this afternoon January 06: ICU. 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 Patient underwent sigmoid resection with end colostomy. Evidence of cross tumor spread on the lateral pelvic keller. No output from the colostomy. Nothing by mouth. Patient has a TANA drain. Georges catheter. IV meropenem. January 07: ICU. Up in a recliner. On room air. Eyes ears. No NG tube. TANA drain putting out. Colostomy very small output. Georges catheter in place. Discussed with patient and family at the bedside. Some pain at the operative site. Active Medications Acetaminophen (Acetaminophen Tab 325 Mg Tab) 650 mg PO Q6HR PRN PRN Reason: Mild Pain or Fever > 100.5 Hydrocodone Bitart/Acetaminophen (Hydrocodone/Apap 5-325mg 1 Each Tab) 1 each PO Q4HR PRN PRN Reason: Moderate Pain (Scale 4 to 6) Heparin Sodium (Porcine) (Heparin Sodium,Porcine 5,000 Unit/Ml 1 Ml Vial) 5,000 unit SQ Q12HR [facility] Last Admin: 01/07/23 09:32 Dose: 5,000 unit Hydromorphone HCl (Hydromorphone 1 Mg/Ml 1 Ml Syringe) 1 mg IVP Q4HR PRN PRN Reason: Severe Pain (Scale 7 to 10) Last Admin: 01/07/23 07:27 Dose: 1 mg Meropenem 1 gm/ Sodium (Chloride) 100 mls @ 33.333 mls/hr IVPB Q8HR@0600,1400,2200 [facility] Last Admin: 01/07/23 06:59 Dose: 33.333 mls/hr Ferric Sodium Gluconate 125 mg (/ Sodium Chloride) 110 mls @ 100 mls/hr IVPB DAILY [facility] Stop: 01/08/23 10:05 Last Admin: 01/07/23 09:32 Dose: 100 mls/hr Sodium Chloride (Saline 0.9%) 1,000 mls @ 125 mls/hr IV .Q8H [facility] Last Admin: 01/07/23 09:33 Dose: 125 mls/hr Morphine Sulfate (Morphine Sulfate 2 Mg/Ml Syringe) 1 mg IV Q4HR PRN PRN Reason: Severe Pain (Scale 7 to 10) Last Admin: 01/07/23 10:24 Dose: 1 mg Naloxone HCl (Naloxone 0.4 Mg/Ml 1 Ml Vial) 0.2 mg IV Q2M PRN PRN Reason: Opioid Reversal Ondansetron HCl (Ondansetron 4 Mg/2 Ml Vial) 4 mg IVP Q8HR PRN PRN Reason: Nausea And Vomiting Last Admin: 01/06/23 08:57 Dose: 4 mg Ondansetron HCl (Ondansetron 4 Mg/2 Ml Vial) 4 mg IVP Q6HR PRN PRN Reason: Nausea And Vomiting Pantoprazole Sodium (Pantoprazole 40 Mg/10 Ml Vial) 40 mg IV DAILY [facility] Last Admin: 01/07/23 09:32 Dose: 40 mg Pantoprazole Sodium (Pantoprazole 40 Mg/10 Ml Vial) 40 mg IV DAILY [facility] Last Admin: 01/07/23 07:57 Dose: Not Given Past medical history to include: Unremarkable Social history: . Smoker. No alcohol. Physical examination: VITAL SIGNS: Afebrile, 92, 14, 146/80, 96% room air GENERAL: Up in a recliner, tired EYES: Pupils equal. Conjunctiva pale. HEENT: External appearance of nose and ears normal, oral cavity grossly normal. NECK: JVD not raised; masses not palpable. HEART: First and second heart sounds are normal; no edema. LUNGS: Respiratory rate normal; decreased breath sounds. ABDOMEN: Soft, tenderness, liver spleen not palpable, colostomy bag-no output. Right abdominal incision with dressing. TANA drain PSYCH: Alert and oriented x3; mood and affect anxious. MUSCULOSKELETAL:No Clubbing/cyanosis;muscles-grossly intact. OA INVESTIGATIONS, reviewed in the clinical context: January 07: White count 14.3 hemoglobin 7.8 platelets 27 sodium 128 potassium 3.9 creatinine 0.83 Blood culture [January 04] E. coli/ESBL January 06: White count 7.6 hemoglobin 9.4 platelets 335 sodium 129 potassium 4.5 BUN 23 creatinine 1.05 albumin 2.0 White count 9.6 hemoglobin 11.6 platelets 385 sodium 132 potassium 3.8 BUN 21 creatinine 0.67 CRP 13.4 albumin 2.[address] abdomen and pelvis with contrast: Left kidney descended into his left pelvis marked amount of stool within the colon marked sigmoid wall thickening. Assessment and plan: -Acute bowel obstruction from large fungating sigmoid colon tumor creating obstruction and perforation. Status post surgery. Colostomy -minimal output TANA drain Nothing by mouth -Probable secondary peritonitis from perforation, causing sepsis with blood culture -E. coli/ESBL IV meropenem -Large fungating sigmoid colon tumor creating obstruction and perforation. January 05: sigmoid resection with end colostomy. Evidence of tumor spread on the lateral pelvic keller.-January [address] Turner -Acute postprocedure blood loss anemia expected from surgery IV Ferrlecit -Severe protein calorie malnutrition from decreased oral intake -Mild hyponatremia IV fluids Discussed with patient and family the bedside. IV fluids. Ice chips. IV meropenem. Repeat blood culture. Past Medical History Past Medical History: No Reported History History of Any Multi-Drug Resistant Organisms: None Reported Past Surgical History: Adenoidectomy, Appendectomy, Tonsillectomy Past Anesthesia/Blood Transfusion Reactions: Unable to Obtain Past Psychological History: No Psychological Hx Reported Smoking Status: Former smoker Past Alcohol Use History: None Reported Past Drug Use History: None Reported
--- NOTE | 2023-01-07 14:47 | P.PN ---
Subjective Progress Note Date: 01/07/23 Principal diagnosis: colon mass Family meeting held today with Dr. Keena Lopez Pt is reporting improvement in abdominal pain, pain med regimen controlling pain well. Denies nausea and vomiting. Patient has not had BM or flatus but is having some belching. Tolerating ice chips without symptoms. Objective - Vital Signs Vital signs: Vital Signs Temp 98.8 F 01/07/23 04:00 Pulse 92 01/07/23 12:00 Resp 14 01/07/23 12:00 BP 146/80 01/07/23 12:00 Pulse Ox 96 01/07/23 12:00 FiO2 30 01/06/23 09:17 Intake & Output 01/06/23 01/07/23 01/07/23 18:59 06:59 18:59 Intake Total 2722.185 1375 125 Output Total 1000 675 805 Balance 1722.185 700 -680 Weight 59.6 kg Intake: IV 2703 1375 125 Dextrose 5%-0.45% NaCl 1, 500 1375 125 000 ml @ 125 mls/hr IV . Q8H [facility] Rx#:[id number] Meropenem 1 gm In Sodium 33 Chloride 0.9% 100 ml @ 33 .333 mls/hr IVPB Q8HR@ 0600,1400,2200 [facility] Rx#: [id number] Sodium Chloride 0.9% 1, 1170 000 ml @ 130 mls/hr IV . Q7H42M [facility] Rx#:[id number] Sodium Chloride 0.9% 1, 1000 000 ml @ 999 mls/hr IV . Q1H1M [facility] Rx#:[id number] Intake, IV Titration 19.185 Amount propofoL 1,000 mg In 19.185 Empty Bag 1 bag @ 15 MCG/ KG/MIN 4.491 mls/hr IV . [id number] [facility] Rx#:[id number] Output: Drainage 120 110 75 Medial Abdomen 120 Right Upper Abdomen 110 75 Urine [phone] Other: Voiding Method Indwelling Catheter Indwelling Catheter Indwelling Catheter - Constitutional General appearance: Present: average body habitus, no acute distress - EENT Eyes: Present: anicteric sclerae, EOMI ENT: Present: hearing grossly normal - Respiratory Details: breathing is even and unlabored - Cardiovascular Details: skin warm and dry - Integumentary Integumentary: Absent: cyanotic, jaundiced - Musculoskeletal Musculoskeletal: Present: generalized weakness - Psychiatric Psychiatric: Present: A&O x's 3, appropriate affect, intact judgment & insight - Labs CBC & Chem 7: 01/07/23 05:00 01/07/23 05:00 Labs: Abnormal Lab Results - Last 24 Hours (Table) 01/07/23 01/07/23 01/07/23 Range/Units 00:11 05:00 05:00 WBC 14.3 H (3.8-10.6) k/uL RBC 2.87 L (3.80-5.40) m/uL Hgb 7.8 L D (11.4-16.0) gm/dL Hct 24.7 L (34.0-46.0) % RDW 15.6 H (11.5-15.5) % Neutrophils # 13.3 H (1.3-7.7) k/uL Lymphocytes # 0.6 L (1.0-4.8) k/uL Sodium 128 L (137-145) mmol/L BUN 23 H (7-17) mg/dL Glucose 164 H (74-99) mg/dL POC Glucose (mg/dL) 158 H (70-110) mg/dL Calcium 7.6 L (8.4-10.2) mg/dL 01/07/23 Range/Units 06:20 WBC (3.8-10.6) k/uL RBC (3.80-5.40) m/uL Hgb (11.4-16.0) gm/dL Hct (34.0-46.0) % RDW (11.5-15.5) % Neutrophils # (1.3-7.7) k/uL Lymphocytes # (1.0-4.8) k/uL Sodium (137-145) mmol/L BUN (7-17) mg/dL Glucose (74-99) mg/dL POC Glucose (mg/dL) 206 H (70-110) mg/dL Calcium (8.4-10.2) mg/dL Microbiology - Last 24 Hours (Table) 01/04/23 17:23 Blood Culture Gram Stain - Final Blood Blood Culture - Final Escherichia coli Assessment and Plan (1) Colonic mass Current Visit: Yes Status: Acute Priority: High Code(s): K63.89 - OTHER SPECIFIED DISEASES OF INTESTINE SNOMED Code(s): 629651679 Plan: Sigmoid mass: -Reporting RLQ abdominal pain for the last 2 months with increasing frequency of loose stools. Denies nausea/vomiting, blood in stool and melena. -CT abdomen pelvis revealed markedly abnormal sigmoid colon with dilatation and ill-definition of the wall. Proximal colon prominent in size with marked feces. No small bowel obstruction noted. Tiny amount of free intraperitoneal peritoneal air and small amount of ascites. -S/p exploratory laparotomy on 01/[address] Turner, revealing fungating tumor extending off the serosal surface of the sigmoid colon. Sigmoid colon was adherent to the right side of the uterus and evidence of gross tumor spread on the lateral pelvic keller. Sigmoid resection was performed with end colostomy placed. -CEA elevated at 125 -Biopsy pending -Will plan for staging PET CT in 3-4 weeks and f/u with Dr. Keena Mckee to further discuss goals of care and treatment options. NGS and PD-L1 will be requested on pathology -Treatment would be on hold until patient has adequately healed from surgery, typically 4-6 weeks post op *Family meeting held today with Dr. Keena Lopez. CT scan results and surgical findings were discussed in detail with patient and family. It was explained that findings are concerning for primary colon malignancy, however we will have to await pending biopsy for confirmative diagnosis. Discussed plan of care, and that we will obtain staging PET/CT as well as requesting additional testing on pathology. And treatment would have to be on hold until patient has adequately recovered from surgery which is typically 4-6 weeks postop. All patient and family's questions were answered to their satisfaction. attests: I have seen and examined patient, performed H&P, developed impression and plan of care. Discussed with dictator. Agree with documentation, dictated as a scribe Time with Patient: Greater than 30
--- NOTE | 2023-01-07 16:10 | P.PN ---
Subjective Progress Note Date: 01/07/23 CHIEF COMPLAINT: Obstructing rectosigmoid cancer with perforation HISTORY OF PRESENT ILLNESS: Patient status post exploratory laparotomy and sigmoid resection with end colostomy. Patient in the ICU. She is being downgraded out of the ICU today. She reports her pain is controlled. Denies any nausea or vomiting. No output from her ostomy. Afebrile. WBC 17.6 down to 14.3 Hgb 9.4 down to 7.8 platelets 287 sodium is 128 potassium 3.9 creatinine 0.3 TANA drain 50 mL service and was PHYSICAL EXAM: VITAL SIGNS: Reviewed. GENERAL: Well-developed in no acute distress. ABDOMEN: Soft. Nondistended. Tender incision site. Incisional dressing clean dry and intact. Ostomy on the left stoma is pink. No stool noted. Cervix sanguinous drainage and ostomy bag noted. TANA drain serosanguineous output NEUROLOGIC: Alert and oriented. Cranial nerves II through XII grossly intact. ASSESSMENT: 1. Obstructing rectosigmoid cancer with perforation status post Exploratory laparotomy and sigmoid resection with end colostomy PLAN: -Keep patient nothing by mouth except ice chips -Follow up on path report -Continue supportive care -Continue pain medication as needed -Continue antibiotics -Continue IV fluid -GI prophylaxis Protonix -DVT prophylaxis subcu heparin Physician Berry Planter note has been reviewed by physician. Signing provider agrees with the documented findings, assessment, and plan of care. Objective - Vital Signs Vital signs: Vital Signs Temp 98.8 F 01/07/23 04:00 Pulse 92 01/07/23 12:00 Resp 14 01/07/23 12:00 BP 146/80 01/07/23 12:00 Pulse Ox 96 01/07/23 12:00 FiO2 30 01/06/23 09:17 Intake & Output 01/06/23 01/07/23 01/07/23 18:59 06:59 18:59 Intake Total 2722.185 1375 125 Output Total 1000 675 805 Balance 1722.185 700 -680 Weight 59.6 kg Intake: IV 2703 1375 125 Dextrose 5%-0.45% NaCl 1, 500 1375 125 000 ml @ 125 mls/hr IV . Q8H [facility] Rx#:[id number] Meropenem 1 gm In Sodium 33 Chloride 0.9% 100 ml @ 33 .333 mls/hr IVPB Q8HR@ 0600,1400,2200 [facility] Rx#: [id number] Sodium Chloride 0.9% 1, 1170 000 ml @ 130 mls/hr IV . Q7H42M [facility] Rx#:[id number] Sodium Chloride 0.9% 1, 1000 000 ml @ 999 mls/hr IV . Q1H1M [facility] Rx#:[id number] Intake, IV Titration 19.185 Amount propofoL 1,000 mg In 19.185 Empty Bag 1 bag @ 15 MCG/ KG/MIN 4.491 mls/hr IV . [id number] [facility] Rx#:[id number] Output: Drainage 120 110 75 Medial Abdomen 120 Right Upper Abdomen 110 75 Urine [phone] Other: Voiding Method Indwelling Catheter Indwelling Catheter Indwelling Catheter - Labs CBC & Chem 7: 01/07/23 05:00 01/07/23 05:00 Labs: Abnormal Lab Results - Last 24 Hours (Table) 01/07/23 01/07/23 01/07/23 Range/Units 00:11 05:00 05:00 WBC 14.3 H (3.8-10.6) k/uL RBC 2.87 L (3.80-5.40) m/uL Hgb 7.8 L D (11.4-16.0) gm/dL Hct 24.7 L (34.0-46.0) % RDW 15.6 H (11.5-15.5) % Neutrophils # 13.3 H (1.3-7.7) k/uL Lymphocytes # 0.6 L (1.0-4.8) k/uL Sodium 128 L (137-145) mmol/L BUN 23 H (7-17) mg/dL Glucose 164 H (74-99) mg/dL POC Glucose (mg/dL) 158 H (70-110) mg/dL Calcium 7.6 L (8.4-10.2) mg/dL 01/07/23 Range/Units 06:20 WBC (3.8-10.6) k/uL RBC (3.80-5.40) m/uL Hgb (11.4-16.0) gm/dL Hct (34.0-46.0) % RDW (11.5-15.5) % Neutrophils # (1.3-7.7) k/uL Lymphocytes # (1.0-4.8) k/uL Sodium (137-145) mmol/L BUN (7-17) mg/dL Glucose (74-99) mg/dL POC Glucose (mg/dL) 206 H (70-110) mg/dL Calcium (8.4-10.2) mg/dL Microbiology - Last 24 Hours (Table) 01/04/23 17:23 Blood Culture Gram Stain - Final Blood Blood Culture - Final Escherichia coli
[2023-01-07 20:26] LABS: Glucose,Whole Blood 92 mg/dL (70-110)
[2023-01-08 00:58] LABS: Glucose,Whole Blood 93 mg/dL (70-110)
[2023-01-08] MEDS: SODIUM CHLORIDE 0.9% 1,000 ML IV SCH ×3 (01:39→17:52)
[2023-01-08] MEDS: MORPHINE SULFATE 2 MG/ML SYRINGE IV PRN ×2 (03:07→08:09)
[2023-01-08] MEDS: MEROPENEM 1 GM in SODIUM CHLORIDE 0.9% 100 ML IVPB SCH ×3 (05:57→21:45)
[2023-01-08 06:03] LABS: Glucose,Whole Blood 83 mg/dL (70-110)
[2023-01-08] MEDS: PANTOPRAZOLE 40 MG/10 ML VIAL IV SCH ×2 (07:13→08:09)
[2023-01-08 07:24] LABS: Glucose,Whole Blood 76 mg/dL (70-110)
[2023-01-08] MEDS: HEPARIN SODIUM,PORCINE 5,000 UNIT/ML 1 ML VIAL SQ SCH ×2 (08:09→21:45)
[2023-01-08] MEDS ORDERED: cloNIDine HCL 0.1 MG TAB PO STA (08:51)
[2023-01-08] MEDS: SODIUM FERRIC GLUCONAT-SUCROSE 125 MG in SODIUM CHLORIDE 0.9% 100 ML IVPB SCH (09:10)
[2023-01-08 11:14] LABS: Basophils # (A) 0.02 X 10*3/uL (0.00-0.10); Basophils % (A) 0.2 %; Eosinophils # (A) 0 X 10*3/uL (0.04-0.35); Eosinophils % (A) 0 %; HCT 26.9 % (37.2-46.3); HGB 8.2 d/dL (12.0-15.0); Lymphocytes # (A) 0.65 X 10*3/uL (0.90-5.00); Lymphocytes % (A) 5.5 %; MCH 26.3 pg (27.0-32.0); MCHC 30.5 d/dL (32.0-37.0); MCV 86.2 FL (80.0-97.0); Mean Platelet Volume 9.3 FL (9.5-12.2); Monocytes % (A) 3.4 %; NRBC Per 100 WBC 0 X 10*3/uL (0.00-0.01); Neutrophils # (A) 10.71 X 10*3/uL (1.80-7.70); Neutrophils % (A) 89.9 %; Platelet Count 276 X 10*3/uL (140-440); RBC 3.12 X 10*6/uL (4.10-5.20)
[2023-01-08 11:29] LABS: BUN/Creat Ratio 23.67 Ratio (12.00-20.00); Blood Urea Nitrogen 14.2 mg/dL (9.0-27.0); Carbon Dioxide 22.5 mmol/L (21.6-31.8); Chloride 104 mmol/L (96-109); Glucose 71 mg/dL (70-110); Potassium 4.5 mmol/L (3.5-5.5); Sodium 136 mmol/L (135-145)
[2023-01-08] MEDS: HYDROcodone/APAP 5-325MG 1 EACH TAB PO PRN ×3 (11:34→21:44)
--- NOTE | 2023-01-08 12:10 | P.PN ---
Subjective Progress Note Date: 01/08/23 The patient is seen today 01/08/2023 in follow-up on the regular medical floor. She is currently resting fairly comfortably in bed. She is having some surgical incision pain. Her ostomy is patent. She is postoperative day #3 of an exploratory laparotomy and sigmoid resection with end colostomy. Pathology is pending. Blood cultures were positive for E. coli. White count 11.2. Hemoglobin 8.2. Platelets 276. Sodium 136. Potassium 4.5. Bicarb 23. BUN 14. Creatinine 0.6. She is afebrile. Maintaining O2 saturations in the mid 90s on room air. She's on antibiotics in the form of meropenem. Normal saline at 125 ML's per hour. Heparin for DVT prophylaxis. She remains nothing by mouth other than ice chips. Working with the incentive spirometer. Objective - Vital Signs Vital signs: Vital Signs Temp 98.5 F 01/08/23 10:03 Pulse 97 01/08/23 10:03 Resp 16 01/08/23 10:03 BP 119/76 01/08/23 10:56 Pulse Ox 16 L 01/08/23 10:03 FiO2 30 01/06/23 09:17 Intake & Output 01/07/23 01/08/23 01/08/23 18:59 06:59 18:59 Intake Total 125 590 Output Total 855 150 Balance -730 440 Weight 59.6 kg 59.7 kg Intake: IV 125 Dextrose 5%-0.45% NaCl 1, 125 000 ml @ 125 mls/hr IV . Q8H [facility] Rx#:[id number] Oral 590 Output: Drainage 125 150 Right Upper Abdomen 125 150 Urine 730 Other: Voiding Method Indwelling Catheter Indwelling Catheter Toilet # Voids 4 1 # Bowel Movements 0 - Exam GENERAL EXAM: Alert, pleasant 72-year-old female, on room air, fairly comfortable in no apparent distress. HEAD: Normocephalic. EYES: Normal reaction of pupils, equal size. NOSE: Clear with pink turbinates. THROAT: No erythema or exudates. NECK: No masses, no JVD. CHEST: No chest wall deformity. LUNGS: Equal air entry with no crackles, wheeze, rhonchi or dullness. CVS: S1 and S2 normal with no audible murmur, regular rhythm. ABDOMEN: Incisional dressing clean dry and intact. Ostomy in the left, stoma is pink. Some serosanguineous drainage in the bag. TANA drain with serosanguineous output. SPINE: No scoliosis or deformity SKIN: No rashes CENTRAL NERVOUS SYSTEM: No focal deficits, tone is normal in all 4 extremities. EXTREMITIES: There is no peripheral edema. No clubbing, no cyanosis. Peripheral pulses are intact. - Labs CBC & Chem 7: 01/08/23 05:41 01/08/23 05:41 Labs: Abnormal Lab Results - Last 24 Hours (Table) 01/08/23 01/08/23 Range/Units 05:41 05:41 WBC 11.90 H (4.50-10.00) X 10*3/uL RBC 3.12 L (4.10-5.20) X 10*6/uL Hgb 8.2 L (12.0-15.0) d/dL Hct 26.9 L (37.2-46.3) % MCH 26.3 L (27.0-32.0) pg MCHC 30.5 L (32.0-37.0) d/dL RDW 16.0 H (11.5-14.5) % MPV 9.3 L (9.5-12.2) FL Neutrophils # 10.71 H (1.80-7.70) X 10*3/uL Lymphocytes # 0.65 L (0.90-5.00) X 10*3/uL Eosinophils # 0 L (0.04-0.35) X 10*3/uL BUN/Creatinine Ratio 23.67 H (12.00-20.00) Ratio Calcium 8.0 L (8.7-10.3) mg/dL Microbiology - Last 24 Hours (Table) 01/04/23 17:23 Blood Culture Gram Stain - Final Blood Blood Culture - Final Escherichia coli Assessment and Plan Assessment: Obstructing rectosigmoid tumor with perforation, status post operative day #3 following an exploratory laparotomy and sigmoid resection with end colostomy. Abdominal sepsis, without signs of shock, no vasopressors required Leukocytosis, secondary to above, trending down Acute blood loss anemia, expected outcome of surgery, stable. Hemoglobin 8.2 Ex-tobacco smoker Hypovolemic hyponatremia, recovered Plan: The patient was seen and evaluated Labs and medications reviewed Continue the current treatment plan Remains on meropenem Remains nothing by mouth for now Working with the incentive spirometer Increase her activity as tolerated We will continue to follow This patient was seen independently by the nurse practitioner I have personally seen and examined the patient, performed the documentation and the assessment and plan as written. Number of minutes spent on the visit: 32.
--- NOTE | 2023-01-08 12:12 | P.PN ---
Progress Note - Text Progress Note Date: 01/08/23 The patient's postoperative day 2 for sigmoid colectomy with end colostomy procedure for perforated obstructing sigmoid colon cancer. Patient is feeling better today. She has minimal incisional pain. She has not had any significant output through her colostomy. On exam vital signs appear stable. Abdomen is soft incision is clean dry intact. Patient will continue to receive supportive care. We will give her sips of clear liquids today
[2023-01-08 12:50] LABS: Glucose,Whole Blood 81 mg/dL (70-110)
--- NOTE | 2023-01-08 14:32 | P.PN ---
Progress Note - Text Progress Note Date: 01/08/23 Chief Complaint: Abdominal pain Very pleasant 72-year-old patient, otherwise in good health. 2 months ago patient says been having some abdominal pain off and on. Abdominal pain become much worse yesterday. Patient bowel movements for other regular 2 months ago. Started having the last 2 months sometimes mushy bowel movement sometimes more regular. Patient's had decreased appetite. Lost about 20 pounds. No nausea vomiting. No fever no chills. Computed tomography scan the ER showed some thickening. In the colon. Pending surgery this afternoon January 06: ICU. 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 Patient underwent sigmoid resection with end colostomy. Evidence of cross tumor spread on the lateral pelvic keller. No output from the colostomy. Nothing by mouth. Patient has a TANA drain. Georges catheter. IV meropenem. January 07: ICU. Up in a recliner. On room air. Eyes ears. No NG tube. TANA drain putting out. Colostomy very small output. Georges catheter in place. Discussed with patient and family at the bedside. Some pain at the operative site. January 08: Up in a chair. No output through the colostomy bag. TANA drain. No nausea vomiting. Some abdominal pain. On IV chips. Advanced to clear liquid per surgery for the supper. Active Medications Acetaminophen (Acetaminophen Tab 325 Mg Tab) 650 mg PO Q6HR PRN PRN Reason: Mild Pain or Fever > 100.5 Hydrocodone Bitart/Acetaminophen (Hydrocodone/Apap 5-325mg 1 Each Tab) 1 each PO Q4HR PRN PRN Reason: Moderate Pain (Scale 4 to 6) Last Admin: 01/08/23 11:34 Dose: 1 each Heparin Sodium (Porcine) (Heparin Sodium,Porcine 5,000 Unit/Ml 1 Ml Vial) 5,000 unit SQ Q12HR [facility] Last Admin: 01/08/23 08:09 Dose: 5,000 unit Hydromorphone HCl (Hydromorphone 1 Mg/Ml 1 Ml Syringe) 1 mg IVP Q4HR PRN PRN Reason: Severe Pain (Scale 7 to 10) Last Admin: 01/07/23 17:16 Dose: 1 mg Meropenem 1 gm/ Sodium (Chloride) 100 mls @ 33.333 mls/hr IVPB Q8HR@0600,1400,2200 [facility] Last Admin: 01/08/23 13:23 Dose: 33.333 mls/hr Sodium Chloride (Saline 0.9%) 1,000 mls @ 125 mls/hr IV .Q8H [facility] Last Admin: 01/08/23 08:13 Dose: 125 mls/hr Morphine Sulfate (Morphine Sulfate 2 Mg/Ml Syringe) 1 mg IV Q4HR PRN PRN Reason: Severe Pain (Scale 7 to 10) Last Admin: 01/08/23 08:09 Dose: 1 mg Naloxone HCl (Naloxone 0.4 Mg/Ml 1 Ml Vial) 0.2 mg IV Q2M PRN PRN Reason: Opioid Reversal Ondansetron HCl (Ondansetron 4 Mg/2 Ml Vial) 4 mg IVP Q8HR PRN PRN Reason: Nausea And Vomiting Last Admin: 01/06/23 08:57 Dose: 4 mg Ondansetron HCl (Ondansetron 4 Mg/2 Ml Vial) 4 mg IVP Q6HR PRN PRN Reason: Nausea And Vomiting Pantoprazole Sodium (Pantoprazole 40 Mg/10 Ml Vial) 40 mg IV DAILY [facility] Last Admin: 01/08/23 08:09 Dose: 40 mg Pantoprazole Sodium (Pantoprazole 40 Mg/10 Ml Vial) 40 mg IV DAILY [facility] Last Admin: 01/08/23 07:13 Dose: Not Given Past medical history to include: Unremarkable Social history: . Smoker. No alcohol. Physical examination: VITAL SIGNS: 98.5, 88, 20, 135/87, 99% room air GENERAL: Up in a recliner, tired EYES: Pupils equal. Conjunctiva pale. HEENT: External appearance of nose and ears normal, oral cavity grossly normal. NECK: JVD not raised; masses not palpable. HEART: First and second heart sounds are normal; no edema. LUNGS: Respiratory rate normal; decreased breath sounds. ABDOMEN: Soft, tenderness, liver spleen not palpable, colostomy bag-no output. Right abdominal incision with dressing. TANA drain PSYCH: Alert and oriented x3; mood and affect anxious. MUSCULOSKELETAL:No Clubbing/cyanosis;muscles-grossly intact. OA INVESTIGATIONS, reviewed in the clinical context: January 08: White count 9.9 hemoglobin 8.2 potassium 4.5 creatinine 0.6 January 07: White count 14.3 hemoglobin 7.8 platelets 27 sodium 128 potassium 3.9 creatinine 0.83 Blood culture [January 04] E. coli/ESBL January 06: White count 7.6 hemoglobin 9.4 platelets 335 sodium 129 potassium 4.5 BUN 23 creatinine 1.05 albumin 2.0 White count 9.6 hemoglobin 11.6 platelets 385 sodium 132 potassium 3.8 BUN 21 creatinine 0.67 CRP 13.4 albumin 2.[address] abdomen and pelvis with contrast: Left kidney descended into his left pelvis marked amount of stool within the colon marked sigmoid wall thickening. Assessment and plan: -Acute bowel obstruction from large fungating sigmoid colon tumor creating obstruction and perforation. Status post surgery. Colostomy -minimal output TANA drain ice chips -Probable secondary peritonitis from perforation, causing sepsis with blood culture -E. coli/ESBL IV meropenem -Large fungating sigmoid colon tumor creating obstruction and perforation. January 05: sigmoid resection with end colostomy. Evidence of tumor spread on the lateral pelvic keller.-January [address] Turner -Acute postprocedure blood loss anemia expected from surgery IV Ferrlecit -Severe protein calorie malnutrition from decreased oral intake -Mild hyponatremia IV fluids IV fluids. Ice chips. IV meropenem. Advanced to clear liquids for supper per surgery Past Medical History Past Medical History: No Reported History History of Any Multi-Drug Resistant Organisms: None Reported Past Surgical History: Adenoidectomy, Appendectomy, Tonsillectomy Past Anesthesia/Blood Transfusion Reactions: Unable to Obtain Past Psychological History: No Psychological Hx Reported Smoking Status: Former smoker Past Alcohol Use History: None Reported Past Drug Use History: None Reported
[2023-01-08 17:48] LABS: Glucose,Whole Blood 91 mg/dL (70-110)
[2023-01-08 20:15] LABS: Glucose,Whole Blood 98 mg/dL (70-110)
[2023-01-09] MEDS: SODIUM CHLORIDE 0.9% 1,000 ML IV SCH ×3 (02:00→18:50)
[2023-01-09] MEDS: MEROPENEM 1 GM in SODIUM CHLORIDE 0.9% 100 ML IVPB SCH ×3 (06:23→22:36)
[2023-01-09] MEDS: HYDROcodone/APAP 5-325MG 1 EACH TAB PO PRN ×3 (06:42→18:49)
[2023-01-09] MEDS: PANTOPRAZOLE 40 MG/10 ML VIAL IV SCH ×2 (09:28→09:29)
[2023-01-09] MEDS: HEPARIN SODIUM,PORCINE 5,000 UNIT/ML 1 ML VIAL SQ SCH ×2 (09:29→22:35)
--- NOTE | 2023-01-09 12:15 | P.PN ---
Subjective Progress Note Date: 01/09/23 The patient is seen today 01/08/2023 in follow-up on the regular medical floor. She is currently resting fairly comfortably in bed. She is having some surgical incision pain. Her ostomy is patent. She is postoperative day #3 of an exploratory laparotomy and sigmoid resection with end colostomy. Pathology is pending. Blood cultures were positive for E. coli. White count 11.2. Hemoglobin 8.2. Platelets 276. Sodium 136. Potassium 4.5. Bicarb 23. BUN 14. Creatinine 0.6. She is afebrile. Maintaining O2 saturations in the mid 90s on room air. She's on antibiotics in the form of meropenem. Normal saline at 125 ML's per hour. Heparin for DVT prophylaxis. She remains nothing by mouth other than ice chips. Working with the incentive spirometer. The patient is seen today 01/09/2023 in follow-up on the regular medical floor. She is currently sitting up in a chair at the bedside. Awake and alert in no acute distress. She is maintaining good O2 saturations in the 90s on room air. She is tolerating clear liquid diet. She is working with her incentive spirometer. Still no significant output from her ostomy. Her abdomen remains soft. Incision is clean dry and well approximated. Initial blood culture was positive for E. coli. Follow-up blood cultures revealing no growth thus far. Blood sugar 98. She remains on antibiotics in the form of meropenem. Heparin for DVT prophylaxis. Her pathology report was positive for colonic adenocarcinoma. Oncology is following. Objective - Vital Signs Vital signs: Vital Signs Temp 97.8 F 01/09/23 07:34 Pulse 88 01/09/23 07:34 Resp 16 01/09/23 07:34 BP 171/95 01/09/23 07:34 Pulse Ox 99 01/09/23 07:34 FiO2 30 01/06/23 09:17 Intake & Output 01/08/23 01/09/23 01/09/23 18:59 06:59 18:59 Intake Total 1150 590 118 Output Total 80 70 80 Balance 1070 520 38 Weight 49.895 kg Intake: IV 100 Meropenem 1 gm In Sodium 100 Chloride 0.9% 100 ml @ 33 .333 mls/hr IVPB Q8HR@ 0600,1400,2200 [facility] Rx#: [id number] Intake, IV Titration 850 Amount Sodium Chloride 0.9% 1, 750 000 ml @ 125 mls/hr IV . Q8H [facility] Rx#:[id number] Sodium Ferric Gluconat- 100 Sucrose 125 mg In Sodium Chloride 0.9% 100 ml @ 100 mls/hr IVPB DAILY [facility] Rx#:[id number] Oral 200 590 118 Output: Drainage 80 70 80 Right Upper Abdomen 80 70 80 Other: Voiding Method Toilet Toilet # Voids 1 4 # Bowel Movements 0 - Exam GENERAL EXAM: Alert, 72-year-old female, sitting up in a chair, on room air, comfortable in no apparent distress. HEAD: Normocephalic. EYES: Normal reaction of pupils, equal size. NOSE: Clear with pink turbinates. THROAT: No erythema or exudates. NECK: No masses, no JVD. CHEST: No chest wall deformity. LUNGS: Equal air entry with no crackles, wheeze, rhonchi or dullness. CVS: S1 and S2 normal with no audible murmur, regular rhythm. ABDOMEN: Incisional dressing clean dry and intact. Ostomy in the left, stoma is pink. Some serosanguineous drainage in the bag. . SPINE: No scoliosis or deformity SKIN: No rashes CENTRAL NERVOUS SYSTEM: No focal deficits, tone is normal in all 4 extremities. EXTREMITIES: There is no peripheral edema. No clubbing, no cyanosis. Peripheral pulses are intact. - Labs CBC & Chem 7: 01/08/23 05:41 01/08/23 05:41 Labs: Microbiology - Last 24 Hours (Table) 01/07/23 14:14 Blood Culture - Preliminary Blood Assessment and Plan Assessment: Obstructing rectosigmoid tumor with perforation, status post operative day #4 following an exploratory laparotomy and sigmoid resection with end colostomy. Pathology positive for colonic adenocarcinoma. Abdominal sepsis, without signs of shock, no vasopressors required Leukocytosis, secondary to above, trending down Acute blood loss anemia, expected outcome of surgery, stable. Hemoglobin 8.2 Ex-tobacco smoker Hypovolemic hyponatremia, recovered Plan: The patient was seen and evaluated Labs and medications reviewed Working with the incentive spirometer Stable and on room air We will see as needed This patient was seen independently by the nurse practitioner I have personally seen and examined the patient, performed the documentation and the assessment and plan as written. Number of minutes spent on the visit: 25.
[2023-01-09 12:29] LABS: Glucose,Whole Blood 139 mg/dL (70-110)
--- NOTE | 2023-01-09 13:37 | P.PN ---
Subjective Progress Note Date: 01/09/23 CHIEF COMPLAINT: Obstructing rectosigmoid cancer with perforation HISTORY OF PRESENT ILLNESS: Patient is seen and examined as a follow-up. She is status post exploratory laparotomy and sigmoid resection with end colostomy. She is sitting up in a chair. She is having moderate amount of drainage from TANA drain. Also some leaking noted around site. No significant output from ostomy. Patient tolerating clear liquid diet. Pain has been well managed. PHYSICAL EXAM: VITAL SIGNS: Reviewed. GENERAL: Well-developed in no acute distress. HEENT: No sclera icterus. Extraocular movements grossly intact. Moist buccal mucosa. Head is atraumatic, normocephalic. ABDOMEN: Soft. Nondistended. Mild surgical tenderness. TANA drain with serosanguineous drainage, ostomy bag with air, stoma pink. NEUROLOGIC: Alert and oriented. ASSESSMENT: 1. Obstructing rectosigmoid cancer with perforation status post exploratory laparotomy and sigmoid resection with end colostomy PLAN: -Continue Clear liquid diet -Consult dietitian for TPN -MT TANA drain daily or as needed -Pain medication as needed -Continue antibiotics -Protonix for GI prophylaxis -Subcu heparin for DVT prophylaxis The impression and plan of care has been dictated as directed. I performed a history and examination of this patient, discussed the same with the dictator. I agree with the dictator's note ,documented as a scribe. Any additional findings or plans will be noted. Objective - Vital Signs Vital signs: Vital Signs Temp 97.5 F L 01/09/23 11:40 Pulse 88 01/09/23 11:40 Resp 16 01/09/23 11:40 BP 125/77 01/09/23 11:40 Pulse Ox 99 01/09/23 11:40 FiO2 30 01/06/23 09:17 Intake & Output 01/08/23 01/09/23 01/09/23 18:59 06:59 18:59 Intake Total 1150 590 118 Output Total 80 70 80 Balance 1070 520 38 Weight 49.895 kg Intake: IV 100 Meropenem 1 gm In Sodium 100 Chloride 0.9% 100 ml @ 33 .333 mls/hr IVPB Q8HR@ 0600,1400,2200 [facility] Rx#: [id number] Intake, IV Titration 850 Amount Sodium Chloride 0.9% 1, 750 000 ml @ 125 mls/hr IV . Q8H [facility] Rx#:[id number] Sodium Ferric Gluconat- 100 Sucrose 125 mg In Sodium Chloride 0.9% 100 ml @ 100 mls/hr IVPB DAILY [facility] Rx#:[id number] Oral 200 590 118 Output: Drainage 80 70 80 Right Upper Abdomen 80 70 80 Other: Voiding Method Toilet Toilet # Voids 1 4 # Bowel Movements 0 - Labs CBC & Chem 7: 01/08/23 05:41 01/08/23 05:41 Labs: Abnormal Lab Results - Last 24 Hours (Table) 01/09/23 Range/Units 12:27 POC Glucose (mg/dL) 139 H (70-110) mg/dL Microbiology - Last 24 Hours (Table) 01/07/23 14:14 Blood Culture - Preliminary Blood
--- NOTE | 2023-01-09 16:05 | P.PN ---
Subjective Progress Note Date: 01/09/23 Principal diagnosis: colon mass Pt is reporting improvement in abdominal pain. Denies nausea and vomiting. Tolerating clear liquid diet. Patient has not had BM or flatus but is having some belching. Objective - Vital Signs Vital signs: Vital Signs Temp 97.5 F L 01/09/23 11:40 Pulse 88 01/09/23 11:40 Resp 16 01/09/23 11:40 BP 125/77 01/09/23 11:40 Pulse Ox 99 01/09/23 11:40 FiO2 30 01/06/23 09:17 Intake & Output 01/08/23 01/09/23 01/09/23 18:59 06:59 18:59 Intake Total 1150 590 118 Output Total 80 70 80 Balance 1070 520 38 Weight 49.895 kg Intake: IV 100 Meropenem 1 gm In Sodium 100 Chloride 0.9% 100 ml @ 33 .333 mls/hr IVPB Q8HR@ 0600,1400,2200 [facility] Rx#: [id number] Intake, IV Titration 850 Amount Sodium Chloride 0.9% 1, 750 000 ml @ 125 mls/hr IV . Q8H [facility] Rx#:[id number] Sodium Ferric Gluconat- 100 Sucrose 125 mg In Sodium Chloride 0.9% 100 ml @ 100 mls/hr IVPB DAILY [facility] Rx#:[id number] Oral 200 590 118 Output: Drainage 80 70 80 Right Upper Abdomen 80 70 80 Other: Voiding Method Toilet Toilet # Voids 1 4 # Bowel Movements 0 - Constitutional General appearance: Present: average body habitus, no acute distress - EENT Eyes: Present: anicteric sclerae, EOMI ENT: Present: hearing grossly normal - Respiratory Details: breathing is even and unlabored - Cardiovascular Details: skin warm and dry - Integumentary Integumentary: Absent: cyanotic, jaundiced - Neurologic Neurologic Comment(s): grossly intact - Musculoskeletal Musculoskeletal: Present: strength equal bilaterally - Psychiatric Psychiatric: Present: A&O x's 3, appropriate affect, intact judgment & insight - Labs CBC & Chem 7: 01/08/23 05:41 01/08/23 05:41 Labs: Abnormal Lab Results - Last 24 Hours (Table) 01/09/23 Range/Units 12:27 POC Glucose (mg/dL) 139 H (70-110) mg/dL Microbiology - Last 24 Hours (Table) 01/07/23 14:14 Blood Culture - Preliminary Blood - Imaging and Cardiology pathology report reviewed Assessment and Plan (1) Colonic mass Current Visit: Yes Status: Acute Priority: High Code(s): K63.89 - OTHER SPECIFIED DISEASES OF INTESTINE SNOMED Code(s): 078105961 (2) Colon adenocarcinoma Current Visit: Yes Status: Acute Priority: High Code(s): C18.9 - MALIGNANT NEOPLASM OF COLON, UNSPECIFIED SNOMED Code(s): 219662020 Plan: Colon Adenocarcinoma: -RLQ abdominal pain for the last 2 months with increasing frequency of loose stools. -CT abdomen pelvis revealed markedly abnormal sigmoid colon with dilatation and ill-definition of the wall. Proximal colon prominent in size with marked feces. No small bowel obstruction noted. Tiny amount of free intraperitoneal peritoneal air and small amount of ascites. -S/p exploratory laparotomy on 01/[address] Turner, revealing fungating tumor extending off the serosal surface of the sigmoid colon. Sigmoid colon was adherent to the right side of the uterus and evidence of gross tumor spread on the lateral pelvic keller. Sigmoid resection was performed with end colostomy placed. -CEA elevated at 125 -Biopsy revealed invasive moderately differentiated colonic adenocarcinoma -Will plan for staging PET CT in 3-4 weeks and NGS and PD-L1 will be requested on pathology. F/u with Dr. Keena Mckee will be scheduled to further discuss goals of care and treatment options -Treatment would be on hold until patient has adequately healed from surgery, typically 4-6 weeks post op Patient and family have been updated on POC attests: I have seen and examined patient, performed H&P, developed impression and plan of care. Discussed with dictator. Agree with documentation, dictated as a scribe
[2023-01-09 16:16] LABS: African American GFR (CKD) >90 (>60 ml/min/1.73 sqM); Anion Gap 7 mmol/L; Blood Urea Nitrogen 17 mg/dL (7-17); Calcium 7.6 mg/dL (8.4-10.2); Carbon Dioxide 16 mmol/L (22-30); Chloride 106 mmol/L (98-107); Glucose 171 mg/dL (74-99); Non-African American GFR(CKD) >90 (>60 ml/min/1.73 sqM); Sodium 129 mmol/L (137-145)
[2023-01-09 16:21] LABS: Magnesium 1.8 mg/dL (1.6-2.3); Phosphorus 2.4 mg/dL (2.5-4.5); Potassium 4.5 mmol/L (3.5-5.1)
[2023-01-09 18:11] LABS: Glucose,Whole Blood 122 mg/dL (70-110)
--- NOTE | 2023-01-09 18:11 | P.PN ---
Progress Note - Text Progress Note Date: 01/09/23 Chief Complaint: Abdominal pain Very pleasant 72-year-old patient, otherwise in good health. 2 months ago patient says been having some abdominal pain off and on. Abdominal pain become much worse yesterday. Patient bowel movements for other regular 2 months ago. Started having the last 2 months sometimes mushy bowel movement sometimes more regular. Patient's had decreased appetite. Lost about 20 pounds. No nausea vomiting. No fever no chills. Computed tomography scan the ER showed some thickening. In the colon. Pending surgery this afternoon January 06: ICU. 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 Patient underwent sigmoid resection with end colostomy. Evidence of cross tumor spread on the lateral pelvic keller. No output from the colostomy. Nothing by mouth. Patient has a TANA drain. Georges catheter. IV meropenem. January 07: ICU. Up in a recliner. On room air. Eyes ears. No NG tube. TANA drain putting out. Colostomy very small output. Georges catheter in place. Discussed with patient and family at the bedside. Some pain at the operative site. January 08: Up in a chair. No output through the colostomy bag. TANA drain. No nausea vomiting. Some abdominal pain. On IV chips. Advanced to clear liquid per surgery for the supper. January 09: Sitting up in a chair. at the bedside. Colostomy bag no output. Some oozing around the TANA drain. Some abdominal pain present. Remains unclear liquids. TPN ordered via dietitian. Active Medications Acetaminophen (Acetaminophen Tab 325 Mg Tab) 650 mg PO Q6HR PRN PRN Reason: Mild Pain or Fever > 100.5 Hydrocodone Bitart/Acetaminophen (Hydrocodone/Apap 5-325mg 1 Each Tab) 1 each PO Q4HR PRN PRN Reason: Moderate Pain (Scale 4 to 6) Last Admin: 01/09/23 11:11 Dose: 1 each Heparin Sodium (Porcine) (Heparin Sodium,Porcine 5,000 Unit/Ml 1 Ml Vial) 5,000 unit SQ Q12HR PARUL Last Admin: 01/09/23 09:29 Dose: 5,000 unit Hydromorphone HCl (Hydromorphone 1 Mg/Ml 1 Ml Syringe) 1 mg IVP Q4HR PRN PRN Reason: Severe Pain (Scale 7 to 10) Last Admin: 01/07/23 17:16 Dose: 1 mg Meropenem 1 gm/ Sodium (Chloride) 100 mls @ 33.333 mls/hr IVPB Q8HR@0600,1400,2200 [facility] Last Admin: 01/09/23 14:23 Dose: 33.333 mls/hr Sodium Chloride (Saline 0.9%) 1,000 mls @ 125 mls/hr IV .Q8H [facility] Last Admin: 01/09/23 09:29 Dose: 125 mls/hr Morphine Sulfate (Morphine Sulfate 2 Mg/Ml Syringe) 1 mg IV Q4HR PRN PRN Reason: Severe Pain (Scale 7 to 10) Last Admin: 01/08/23 08:09 Dose: 1 mg Naloxone HCl (Naloxone 0.4 Mg/Ml 1 Ml Vial) 0.2 mg IV Q2M PRN PRN Reason: Opioid Reversal Ondansetron HCl (Ondansetron 4 Mg/2 Ml Vial) 4 mg IVP Q8HR PRN PRN Reason: Nausea And Vomiting Last Admin: 01/06/23 08:57 Dose: 4 mg Ondansetron HCl (Ondansetron 4 Mg/2 Ml Vial) 4 mg IVP Q6HR PRN PRN Reason: Nausea And Vomiting Pantoprazole Sodium (Pantoprazole 40 Mg/10 Ml Vial) 40 mg IV DAILY [facility] Last Admin: 01/09/23 09:29 Dose: 40 mg Pantoprazole Sodium (Pantoprazole 40 Mg/10 Ml Vial) 40 mg IV DAILY [facility] Last Admin: 01/09/23 09:28 Dose: Not Given Past medical history to include: Unremarkable Social history: . Smoker. No alcohol. Physical examination: VITAL SIGNS: 97.5, 88, 16, 125/77, 99% room air GENERAL: Up in a recliner, tired EYES: Pupils equal. Conjunctiva pale. HEENT: External appearance of nose and ears normal, oral cavity grossly normal. NECK: JVD not raised; masses not palpable. HEART: First and second heart sounds are normal; no edema. LUNGS: Respiratory rate normal; decreased breath sounds. ABDOMEN: Soft, tenderness, liver spleen not palpable, colostomy bag-no output. Right abdominal incision with dressing. TANA drain PSYCH: Alert and oriented x3; mood and affect anxious. MUSCULOSKELETAL:No Clubbing/cyanosis;muscles-grossly intact. OA INVESTIGATIONS, reviewed in the clinical context: January 09: Sodium 129 potassium 4.5 creatinine 0.5 to January 08: White count 9.9 hemoglobin 8.2 potassium 4.5 creatinine 0.6 January 07: White count 14.3 hemoglobin 7.8 platelets 27 sodium 128 potassium 3.9 creatinine 0.83 Blood culture [January 04] E. coli/ESBL January 06: White count 7.6 hemoglobin 9.4 platelets 335 sodium 129 potassium 4.5 BUN 23 creatinine 1.05 albumin 2.0 White count 9.6 hemoglobin 11.6 platelets 385 sodium 132 potassium 3.8 BUN 21 creatinine 0.67 CRP 13.4 albumin 2.[address] abdomen and pelvis with contrast: Left kidney descended into his left pelvis marked amount of stool within the colon marked sigmoid wall thickening. Assessment and plan: -Acute bowel obstruction from large fungating sigmoid colon tumor creating obstruction and perforation. Status post surgery. Colostomy -minimal output TANA drain Clear liquids -Probable secondary peritonitis from perforation, causing sepsis with blood culture -E. coli/ESBL IV meropenem -Large fungating sigmoid colon tumor creating obstruction and perforation. January 05: sigmoid resection with end colostomy. Evidence of tumor spread on the lateral pelvic keller.-January [address] Turner -Acute postprocedure blood loss anemia expected from surgery IV Ferrlecit -Severe protein calorie malnutrition from decreased oral intake TPN ordered -Mild hyponatremia IV fluids IV fluids. Clear liquids IV meropenem. TPN ordered. Past Medical History Past Medical History: No Reported History History of Any Multi-Drug Resistant Organisms: None Reported Past Surgical History: Adenoidectomy, Appendectomy, Tonsillectomy Past Anesthesia/Blood Transfusion Reactions: Unable to Obtain Past Psychological History: No Psychological Hx Reported Smoking Status: Former smoker Past Alcohol Use History: None Reported Past Drug Use History: None Reported
[2023-01-09 21:03] LABS: Glucose,Whole Blood 209 mg/dL (70-110)
[2023-01-10] MEDS: SODIUM CHLORIDE 0.9% 1,000 ML IV SCH ×3 (02:56→23:20)
[2023-01-10] MEDS: HYDROcodone/APAP 5-325MG 1 EACH TAB PO PRN ×3 (03:12→20:40)
[2023-01-10 03:35] LABS: Glucose,Whole Blood 108 mg/dL (70-110)
[2023-01-10] MEDS: MEROPENEM 1 GM in SODIUM CHLORIDE 0.9% 100 ML IVPB SCH ×3 (06:12→23:19)
[2023-01-10] MEDS: PANTOPRAZOLE 40 MG/10 ML VIAL IV SCH ×2 (09:02→09:03)
[2023-01-10] MEDS: HEPARIN SODIUM,PORCINE 5,000 UNIT/ML 1 ML VIAL SQ SCH ×2 (09:02→20:41)
[2023-01-10] MEDS: HYDROmorphone 1 MG/ML 1 ML SYRINGE IVP PRN ×2 (09:02→17:04)
[2023-01-10] MEDS: METOPROLOL TARTRATE 25 MG TAB PO SCH ×2 (09:59→20:41)
[2023-01-10 12:30] LABS: Glucose,Whole Blood 112 mg/dL (70-110)
[2023-01-10 12:36] LABS: ALT 11 U/L (4-34); AST 15 U/L (14-36); African American GFR (CKD) >90 (>60 ml/min/1.73 sqM); Albumin 1.9 g/dL (3.5-5.0); Albumin/Globulin Ratio 0.7; Alkaline Phosphatase 100 U/L (38-126); Anion Gap 5 mmol/L; Blood Urea Nitrogen 14 mg/dL (7-17); Calcium 7.6 mg/dL (8.4-10.2); Carbon Dioxide 21 mmol/L (22-30); Chloride 107 mmol/L (98-107); Globulin 2.6 g/dL; Glucose 90 mg/dL (74-99); Magnesium 1.8 mg/dL (1.6-2.3); Non-African American GFR(CKD) >90 (>60 ml/min/1.73 sqM); Phosphorus 2.5 mg/dL (2.5-4.5); Potassium 4.6 mmol/L (3.5-5.1); Sodium 133 mmol/L (137-145); Total Bilirubin 0.8 mg/dL (0.2-1.3); Total Protein 4.5 g/dL (6.3-8.2)
--- NOTE | 2023-01-10 15:13 | P.PN ---
Subjective Progress Note Date: 01/10/23 CHIEF COMPLAINT: Perforated colon cancer HISTORY OF PRESENT ILLNESS: The patient is a 72-year-old female status post laparotomy for perforated colon cancer. She tolerated clear liquid diet and wants more to eat. ROS: No reports of nausea and vomiting. No fevers or chills. No new chest pain. No productive sputum. Underweight, BMI 17.2 PHYSICAL EXAM: VITAL SIGNS: Reviewed CONSTITUTIONAL: Well developed and in no acute distress. EYES: Conjuctivae without sclera icterus. Extraocular movements grossly intact. HEAD, EARS, NOSE, THROAT: Moist buccal mucosa. Head is atraumatic, normocephali c. Hears conversational speech. No nasal drainage. RESPIRATORY: Non-labored respirations and equal bilateral excursions. CARDIOVASCULAR: Palpable 2+ radial pulses. ABDOMEN: Ostomy pink and patent. No stool. Has flatus. Dressing dry and intact. 1-cm shadowing. MUSCULOSKELETAL: No gross deformity of the lower extremities noted. No clubbing. No cyanosis. SKIN: Good skin turgor. Well perfused. NEUROLOGIC: Cranial nerves II through XII grossly intact. No focal or lateralizing signs. PSYCH: Appropriate affect. Alert and oriented to person, place and time. CLINICAL LABS: Reviewed. Sodium low 129. Hyponatremia. Hemoglobin 7.8-8.2, anemia ASSESSMENT: 1. Perforated colon cancer 2. Underweight, BMI 17.2 3. Hyponatremia 4. Anemia PLAN: 1. Advance diet as tolerated. 2. TPN pending nutrional intake. Objective - Vital Signs Vital signs: Vital Signs Temp 97.9 F 01/10/23 08:00 Pulse 95 01/10/23 08:00 Resp 18 01/10/23 08:00 BP 180/117 01/10/23 08:00 Pulse Ox 99 01/10/23 08:00 FiO2 30 01/06/23 09:17 Intake & Output 01/09/23 01/10/23 01/10/23 18:59 06:59 18:59 Intake Total 218 Output Total 180 420 100 Balance 38 -420 -100 Weight 49.895 kg Intake: IV 100 Meropenem 1 gm In Sodium 100 Chloride 0.9% 100 ml @ 33 .333 mls/hr IVPB Q8HR@ 0600,1400,2200 [facility] Rx#: [id number] Oral 118 Output: Drainage 180 420 100 Right Upper Abdomen 180 420 100 Other: Voiding Method Toilet Toilet # Voids 1 - Labs CBC & Chem 7: 01/08/23 05:41 01/10/23 12:04 Labs: Abnormal Lab Results - Last 24 Hours (Table) 01/09/23 01/09/23 01/09/23 Range/Units 12:27 16:07 18:08 Sodium 129 L (137-145) mmol/L Carbon Dioxide 16 L (22-30) mmol/L Glucose 171 H (74-99) mg/dL POC Glucose (mg/dL) 139 H 122 H (70-110) mg/dL Calcium 7.6 L (8.4-10.2) mg/dL Phosphorus 2.4 L (2.5-4.5) mg/dL 01/09/23 Range/Units 21:02 Sodium (137-145) mmol/L Carbon Dioxide (22-30) mmol/L Glucose (74-99) mg/dL POC Glucose (mg/dL) 209 H (70-110) mg/dL Calcium (8.4-10.2) mg/dL Phosphorus (2.5-4.5) mg/dL Microbiology - Last 24 Hours (Table) 01/07/23 14:14 Blood Culture - Preliminary Blood
[2023-01-10] MEDS ORDERED: MVI, ADULT NO.4 WITH VIT K 10 ML, TRACE (CONC-1ML/DOSE) 1 ML in AMINO ACID 5%-D15W+LYTE... IV ONE ×3 (16:00)
[2023-01-10] MEDS: FAT EMULSION 20% 250 ML in EMPTY BAG 1 BAG IV SCH (16:29)
[2023-01-10 17:46] LABS: Glucose,Whole Blood 105 mg/dL (70-110)
--- NOTE | 2023-01-10 20:11 | P.PN ---
Progress Note - Text Progress Note Date: 01/10/23 Chief Complaint: Abdominal pain Very pleasant 72-year-old patient, otherwise in good health. 2 months ago patient says been having some abdominal pain off and on. Abdominal pain become much worse yesterday. Patient bowel movements for other regular 2 months ago. Started having the last 2 months sometimes mushy bowel movement sometimes more regular. Patient's had decreased appetite. Lost about 20 pounds. No nausea vomiting. No fever no chills. Computed tomography scan the ER showed some thickening. In the colon. Pending surgery this afternoon January 06: ICU. 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 Patient underwent sigmoid resection with end colostomy. Evidence of cross tumor spread on the lateral pelvic keller. No output from the colostomy. Nothing by mouth. Patient has a TANA drain. Georges catheter. IV meropenem. January 07: ICU. Up in a recliner. On room air. Eyes ears. No NG tube. TANA drain putting out. Colostomy very small output. Georges catheter in place. Discussed with patient and family at the bedside. Some pain at the operative site. January 08: Up in a chair. No output through the colostomy bag. TANA drain. No nausea vomiting. Some abdominal pain. On IV chips. Advanced to clear liquid per surgery for the supper. January 09: Sitting up in a chair. at the bedside. Colostomy bag no output. Some oozing around the TANA drain. Some abdominal pain present. Remains unclear liquids. TPN ordered via dietitian. January 10: Up in a chair. Slight liquid output through the colostomy back- dark. Saw Eliel pain. TPN and lipids being started. IV meropenem. Place on low fiber diet by surgery. Blood pressure running on the higher side. Likely from pain. Lopressor added. Active Medications Acetaminophen (Acetaminophen Tab 325 Mg Tab) 650 mg PO Q6HR PRN PRN Reason: Mild Pain or Fever > 100.5 Hydrocodone Bitart/Acetaminophen (Hydrocodone/Apap 5-325mg 1 Each Tab) 1 each PO Q4HR PRN PRN Reason: Moderate Pain (Scale 4 to 6) Last Admin: 01/10/23 13:15 Dose: 1 each Heparin Sodium (Porcine) (Heparin Sodium,Porcine 5,000 Unit/Ml 1 Ml Vial) 5,000 unit SQ Q12HR PARUL Last Admin: 01/10/23 09:02 Dose: 5,000 unit Hydromorphone HCl (Hydromorphone 1 Mg/Ml 1 Ml Syringe) 1 mg IVP Q4HR PRN PRN Reason: Severe Pain (Scale 7 to 10) Last Admin: 01/10/23 17:04 Dose: 1 mg Meropenem 1 gm/ Sodium (Chloride) 100 mls @ 33.333 mls/hr IVPB Q8HR@0600,1400,2200 [facility] Last Admin: 01/10/23 13:14 Dose: 33.333 mls/hr Sodium Chloride (Saline 0.9%) 1,000 mls @ 125 mls/hr IV .Q8H [facility] Last Admin: 01/10/23 03:11 Dose: 125 mls/hr Parenteral Vitamin Supplement 10 ml/ Zinc/Copper/Manganese/Selenium 1 ml/ Amino Ac/Electrol/Dextrose/Calcium 1,011 mls @ 30 mls/hr IV .Q24H ONE Stop: 01/11/23 15:59 Last Admin: 01/10/23 16:11 Dose: 30 mls/hr Parenteral Vitamin Supplement 10 ml/ Zinc/Copper/Manganese/Selenium 1 ml/ Amino Ac/Electrol/Dextrose/Calcium 1,011 mls @ 33 mls/hr IV .Q24H [facility] Fat Emulsion Intravenous 250 (ml/ IV Solution) 250 mls @ 21 mls/hr IV WeSa [facility] Last Admin: 01/10/23 16:29 Dose: 21 mls/hr Metoprolol Tartrate (Metoprolol Tartrate 25 Mg Tab) 25 mg PO BID [facility] Last Admin: 01/10/23 09:59 Dose: 25 mg Morphine Sulfate (Morphine Sulfate 2 Mg/Ml Syringe) 1 mg IV Q4HR PRN PRN Reason: Severe Pain (Scale 7 to 10) Last Admin: 01/08/23 08:09 Dose: 1 mg Naloxone HCl (Naloxone 0.4 Mg/Ml 1 Ml Vial) 0.2 mg IV Q2M PRN PRN Reason: Opioid Reversal Ondansetron HCl (Ondansetron 4 Mg/2 Ml Vial) 4 mg IVP Q8HR PRN PRN Reason: Nausea And Vomiting Last Admin: 01/06/23 08:57 Dose: 4 mg Ondansetron HCl (Ondansetron 4 Mg/2 Ml Vial) 4 mg IVP Q6HR PRN PRN Reason: Nausea And Vomiting Pantoprazole Sodium (Pantoprazole 40 Mg/10 Ml Vial) 40 mg IV DAILY [facility] [place] Last Admin: 01/10/23 09:03 Dose: Not Given Pantoprazole Sodium (Pantoprazole 40 Mg/10 Ml Vial) 40 mg IV DAILY [facility] [place] Last Admin: 01/10/23 09:02 Dose: 40 mg Past medical history to include: Unremarkable Social history: . Smoker. No alcohol. Physical examination: VITAL SIGNS: Weight 8.7, 65, 16, 136/85, 98% room air GENERAL: Up in a recliner, tired EYES: Pupils equal. Conjunctiva pale. HEENT: External appearance of nose and ears normal, oral cavity grossly normal. NECK: JVD not raised; masses not palpable. HEART: First and second heart sounds are normal; no edema. LUNGS: Respiratory rate normal; decreased breath sounds. ABDOMEN: Soft, tenderness, liver spleen not palpable, colostomy some dark liquid output. Right abdominal incision with dressing. TANA drain PSYCH: Alert and oriented x3; mood and affect anxious. MUSCULOSKELETAL:No Clubbing/cyanosis;muscles-grossly intact. OA INVESTIGATIONS, reviewed in the clinical context: January 10: Potassium 4.6 creatinine 0.54 January 09: Sodium 129 potassium 4.5 creatinine 0.5 to January 08: White count 9.9 hemoglobin 8.2 potassium 4.5 creatinine 0.6 January 07: White count 14.3 hemoglobin 7.8 platelets 27 sodium 128 potassium 3.9 creatinine 0.83 Blood culture [January 04] E. coli/ESBL January 06: White count 7.6 hemoglobin 9.4 platelets 335 sodium 129 potassium 4.5 BUN 23 creatinine 1.05 albumin 2.0 White count 9.6 hemoglobin 11.6 platelets 385 sodium 132 potassium 3.8 BUN 21 creatinine 0.67 CRP 13.4 albumin 2.[address] abdomen and pelvis with contrast: Left kidney descended into his left pelvis marked amount of stool within the colon marked sigmoid wall thickening. Assessment and plan: -Acute bowel obstruction from large fungating sigmoid colon tumor creating obstruction and perforation. Status post surgery. Colostomy -dark liquid output. TANA drain Diet being advanced per surgery. -Probable secondary peritonitis from perforation, causing sepsis with blood culture -E. coli/ESBL IV meropenem -Large fungating sigmoid colon tumor creating obstruction and perforation. January 05: sigmoid resection with end colostomy. Evidence of tumor spread on the lateral pelvic keller.-January [address] Turner -Acute postprocedure blood loss anemia expected from surgery IV Ferrlecit -Severe protein calorie malnutrition from decreased oral intake TPN and lipids - started -Mild hyponatremia IV fluids Diet advanced per surgery. IV meropenem. TPN and lipids being started. Discussed with patient.
[2023-01-11 00:18] LABS: Glucose,Whole Blood 125 mg/dL (70-110)
[2023-01-11] MEDS: METOPROLOL TARTRATE 50 MG TAB PO SCH ×3 (01:23→20:58)
[2023-01-11] MEDS: HYDROcodone/APAP 5-325MG 1 EACH TAB PO PRN ×5 (02:18→21:03)
[2023-01-11] MEDS: SODIUM CHLORIDE 0.9% 1,000 ML IV SCH ×3 (02:38→18:23)
[2023-01-11 05:45] LABS: Glucose,Whole Blood 102 mg/dL (70-110)
[2023-01-11] MEDS: MEROPENEM 1 GM in SODIUM CHLORIDE 0.9% 100 ML IVPB SCH ×3 (06:14→20:55)
[2023-01-11 07:08] LABS: ALT 11 U/L (4-34); AST 17 U/L (14-36); African American GFR (CKD) >90 (>60 ml/min/1.73 sqM); Albumin 1.9 g/dL (3.5-5.0); Albumin/Globulin Ratio 0.8; Alkaline Phosphatase 105 U/L (38-126); Anion Gap 2 mmol/L; Blood Urea Nitrogen 14 mg/dL (7-17); Calcium 7.8 mg/dL (8.4-10.2); Carbon Dioxide 22 mmol/L (22-30); Chloride 108 mmol/L (98-107); Globulin 2.5 g/dL; Glucose 105 mg/dL (74-99); Magnesium 1.8 mg/dL (1.6-2.3); Non-African American GFR(CKD) >90 (>60 ml/min/1.73 sqM); Phosphorus 2.6 mg/dL (2.5-4.5); Sodium 132 mmol/L (137-145); Total Bilirubin 0.7 mg/dL (0.2-1.3); Total Protein 4.4 g/dL (6.3-8.2)
[2023-01-11] MEDS: PANTOPRAZOLE 40 MG/10 ML VIAL IV SCH ×3 (07:32→07:45)
[2023-01-11] MEDS: HEPARIN SODIUM,PORCINE 5,000 UNIT/ML 1 ML VIAL SQ SCH ×2 (07:44→20:58)
[2023-01-11] MEDS ORDERED: cloNIDine HCL 0.1 MG TAB PO STA (08:03)
[2023-01-11 12:08] LABS: Glucose,Whole Blood 170 mg/dL (70-110)
--- NOTE | 2023-01-11 15:41 | P.PN ---
Subjective Progress Note Date: 01/11/23 CHIEF COMPLAINT: Perforated colon cancer HISTORY OF PRESENT ILLNESS: The patient is a 72-year-old female status post laparotomy for perforated colon cancer. She reports low appetite. She is on TPN. ROS: No reports of nausea and vomiting. No fevers or chills. No new chest pain. No productive sputum. Underweight, BMI 17.2 PHYSICAL EXAM: VITAL SIGNS: Reviewed CONSTITUTIONAL: Well developed and in no acute distress. EYES: Conjuctivae without sclera icterus. Extraocular movements grossly intact. HEAD, EARS, NOSE, THROAT: Moist buccal mucosa. Head is atraumatic, normocephalic. Hears conversational speech. No nasal drainage. RESPIRATORY: Non-labored respirations and equal bilateral excursions. CARDIOVASCULAR: Palpable 2+ radial pulses. ABDOMEN: Ostomy pink and patent. Dressing dry and intact. 1-cm shadowing. MUSCULOSKELETAL: No gross deformity of the lower extremities noted. No clubbing. No cyanosis. SKIN: Good skin turgor. Well perfused. NEUROLOGIC: Cranial nerves II through XII grossly intact. No focal or lateralizing signs. PSYCH: Appropriate affect. Alert and oriented to person, place and time. CLINICAL LABS: Reviewed. Sodium low 129. Hyponatremia. Hemoglobin 7.8-8.2, anemia ASSESSMENT: 1. Perforated colon cancer 2. Underweight, BMI 17.2 3. Hyponatremia 4. Anemia PLAN: 1. Recommend calorie count 2. Continue TPN Objective - Vital Signs Vital signs: Vital Signs Temp 97.5 F L 01/11/23 12:12 Pulse 71 01/11/23 12:12 Resp 17 01/11/23 12:12 BP 128/79 01/11/23 12:12 Pulse Ox 99 01/11/23 12:12 FiO2 30 01/06/23 09:17 Intake & Output 01/10/23 01/11/23 01/11/23 18:59 06:59 18:59 Intake Total 240 Output Total 230 360 340 Balance 10 - Weight 49.895 kg 61.2 kg Intake: Oral 240 Output: Drainage 230 310 340 Right Upper Abdomen 230 310 340 Stool 50 Other: Voiding Method Toilet Toilet Toilet # Voids 2 1 1 # Bowel Movements 1 - Labs CBC & Chem 7: 01/08/23 05:41 10/15/23 06:46 Labs: Abnormal Lab Results - Last 24 Hours (Table) 01/11/23 01/11/23 01/11/23 Range/Units 00:00 06:46 12:07 Sodium 132 L (137-145) mmol/L Chloride 108 H (98-107) mmol/L Creatinine 0.50 L (0.52-1.04) mg/dL Glucose 105 H (74-99) mg/dL POC Glucose (mg/dL) 125 H 170 H (70-110) mg/dL Calcium 7.8 L (8.4-10.2) mg/dL Total Protein 4.4 L (6.3-8.2) g/dL Albumin 1.9 L (3.5-5.0) g/dL Microbiology - Last 24 Hours (Table) 01/07/23 14:14 Blood Culture - Preliminary Blood
[2023-01-11 17:41] LABS: Glucose,Whole Blood 104 mg/dL (70-110)
--- NOTE | 2023-01-11 19:23 | P.PN ---
Progress Note - Text Progress Note Date: 01/11/23 Chief Complaint: Abdominal pain Very pleasant 72-year-old patient, otherwise in good health. 2 months ago patient says been having some abdominal pain off and on. Abdominal pain become much worse yesterday. Patient bowel movements for other regular 2 months ago. Started having the last 2 months sometimes mushy bowel movement sometimes more regular. Patient's had decreased appetite. Lost about 20 pounds. No nausea vomiting. No fever no chills. Computed tomography scan the ER showed some thickening. In the colon. Pending surgery this afternoon January 06: ICU. 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 Patient underwent sigmoid resection with end colostomy. Evidence of cross tumor spread on the lateral pelvic keller. No output from the colostomy. Nothing by mouth. Patient has a TANA drain. Georges catheter. IV meropenem. January 07: ICU. Up in a recliner. On room air. Eyes ears. No NG tube. TANA drain putting out. Colostomy very small output. Georges catheter in place. Discussed with patient and family at the bedside. Some pain at the operative site. January 08: Up in a chair. No output through the colostomy bag. TANA drain. No nausea vomiting. Some abdominal pain. On IV chips. Advanced to clear liquid per surgery for the supper. January 09: Sitting up in a chair. at the bedside. Colostomy bag no output. Some oozing around the TANA drain. Some abdominal pain present. Remains unclear liquids. TPN ordered via dietitian. January 10: Up in a chair. Slight liquid output through the colostomy back- dark. Some abdominal pain pain. TPN and lipids being started. IV meropenem. Place on low fiber diet by surgery. Blood pressure running on the higher side. Likely from pain. Lopressor added. January 11: Up in a chair. Some abdominal pain. Colostomy back: Liquids with some specks of solid. TPN and lipids. IV meropenem. Increase output to the TANA drain about 500 mL 24-hour period-jem colored. Decreased appetite [Nurse called me this morning the blood pressure running high. Above 200 systolic. Manual blood pressure was checked came back at 1 24 x 70. Told the nurse check all blood pressures manually- going forward.] Active Medications Acetaminophen (Acetaminophen Tab 325 Mg Tab) 650 mg PO Q6HR PRN PRN Reason: Mild Pain or Fever > 100.5 Hydrocodone Bitart/Acetaminophen (Hydrocodone/Apap 5-325mg 1 Each Tab) 1 each PO Q4HR PRN PRN Reason: Moderate Pain (Scale 4 to 6) Last Admin: 01/11/23 17:17 Dose: 1 each Heparin Sodium (Porcine) (Heparin Sodium,Porcine 5,000 Unit/Ml 1 Ml Vial) 5,000 unit SQ Q12HR [facility] Last Admin: 01/11/23 07:44 Dose: 5,000 unit Hydromorphone HCl (Hydromorphone 1 Mg/Ml 1 Ml Syringe) 1 mg IVP Q4HR PRN PRN Reason: Severe Pain (Scale 7 to 10) Last Admin: 01/10/23 17:04 Dose: 1 mg Meropenem 1 gm/ Sodium (Chloride) 100 mls @ 33.333 mls/hr IVPB Q8HR@0600,1400,2200 [facility] Last Admin: 01/11/23 14:10 Dose: 33.333 mls/hr Sodium Chloride (Saline 0.9%) 1,000 mls @ 125 mls/hr IV .Q8H [facility] Last Admin: 01/11/23 18:23 Dose: Not Given Parenteral Vitamin Supplement 10 ml/ Zinc/Copper/Manganese/Selenium 1 ml/ Amino Ac/Electrol/Dextrose/Calcium 1,011 mls @ 33 mls/hr IV .Q24H [facility] Fat Emulsion Intravenous 250 (ml/ IV Solution) 250 mls @ 21 mls/hr IV WeSa [facility] Last Admin: 01/10/23 16:29 Dose: 21 mls/hr Metoprolol Tartrate (Metoprolol Tartrate 50 Mg Tab) 50 mg PO BID [facility] Last Admin: 01/11/23 07:44 Dose: 50 mg Morphine Sulfate (Morphine Sulfate 2 Mg/Ml Syringe) 1 mg IV Q4HR PRN PRN Reason: Severe Pain (Scale 7 to 10) Last Admin: 01/08/23 08:09 Dose: 1 mg Naloxone HCl (Naloxone 0.4 Mg/Ml 1 Ml Vial) 0.2 mg IV Q2M PRN PRN Reason: Opioid Reversal Ondansetron HCl (Ondansetron 4 Mg/2 Ml Vial) 4 mg IVP Q8HR PRN PRN Reason: Nausea And Vomiting Last Admin: 01/06/23 08:57 Dose: 4 mg Ondansetron HCl (Ondansetron 4 Mg/2 Ml Vial) 4 mg IVP Q6HR PRN PRN Reason: Nausea And Vomiting Pantoprazole Sodium (Pantoprazole 40 Mg/10 Ml Vial) 40 mg IV DAILY [facility] Last Admin: 01/11/23 07:44 Dose: 40 mg Pantoprazole Sodium (Pantoprazole 40 Mg/10 Ml Vial) 40 mg IV DAILY [facility] Last Admin: 01/11/23 07:45 Dose: Not Given Past medical history to include: Unremarkable Social history: . Smoker. No alcohol. Physical examination: VITAL SIGNS: 97.5, 71, 17, 1 28 x 79, 99% room air. GENERAL: Up in a recliner, tired EYES: Pupils equal. Conjunctiva pale. HEENT: External appearance of nose and ears normal, oral cavity grossly normal. NECK: JVD not raised; masses not palpable. HEART: First and second heart sounds are normal; no edema. LUNGS: Respiratory rate normal; decreased breath sounds. ABDOMEN: Soft, tenderness, liver spleen not palpable, colostomy some liquid output. Right abdominal incision with dressing. TANA drain PSYCH: Alert and oriented x3; mood and affect anxious. MUSCULOSKELETAL:No Clubbing/cyanosis;muscles-grossly intact. OA INVESTIGATIONS, reviewed in the clinical context: January 11: Potassium 5 creatinine 0.5 albumin 1.9 January 10: Potassium 4.6 creatinine 0.54 January 09: Sodium 129 potassium 4.5 creatinine 0.5 to January 08: White count 9.9 hemoglobin 8.2 potassium 4.5 creatinine 0.6 January 07: White count 14.3 hemoglobin 7.8 platelets 27 sodium 128 potassium 3.9 creatinine 0.83 Blood culture [January 04] E. coli/ESBL January 06: White count 7.6 hemoglobin 9.4 platelets 335 sodium 129 potassium 4.5 BUN 23 creatinine 1.05 albumin 2.0 White count 9.6 hemoglobin 11.6 platelets 385 sodium 132 potassium 3.8 BUN 21 creatinine 0.67 CRP 13.4 albumin 2.[address] abdomen and pelvis with contrast: Left kidney descended into his left pelvis marked amount of stool within the colon marked sigmoid wall thickening. Assessment and plan: -Acute bowel obstruction from large fungating sigmoid colon tumor creating obstruction and perforation. Status post surgery. Colostomy - liquid some specks of solid output. TANA drain-about 500 mL in 24 hour output Diet being advanced per surgery. -Probable secondary peritonitis from perforation, causing sepsis with blood culture -E. coli/ESBL IV meropenem -Large fungating sigmoid colon tumor creating obstruction and perforation. January 05: sigmoid resection with end colostomy. Evidence of tumor spread on the lateral pelvic keller.-January [address] Turner -Acute postprocedure blood loss anemia expected from surgery IV Ferrlecit -Severe protein calorie malnutrition from decreased oral intake TPN and lipids - -Mild hyponatremia IV fluids IV meropenem. TPN and lipids . Prognosis guarded.
[2023-01-11] MEDS: FAMOTIDINE 20 MG TAB PO SCH (20:58)
[2023-01-11] MEDS: MVI, ADULT NO.4 WITH VIT K 10 ML, TRACE (CONC-1ML/DOSE) 1 ML in AMINO ACID 5%-D15W+LYTE... IV SCH ×3 (20:59)
[2023-01-12 00:27] LABS: Glucose,Whole Blood 145 mg/dL (70-110)
[2023-01-12] MEDS ORDERED: cloNIDine HCL 0.1 MG TAB PO STA (02:11)
[2023-01-12] MEDS: SODIUM CHLORIDE 0.9% 1,000 ML IV SCH ×3 (02:43→21:10)
[2023-01-12] MEDS: HYDROcodone/APAP 5-325MG 1 EACH TAB PO PRN ×4 (05:26→21:07)
[2023-01-12] MEDS: MEROPENEM 1 GM in SODIUM CHLORIDE 0.9% 100 ML IVPB SCH ×3 (05:26→21:07)
[2023-01-12 06:08] LABS: Glucose,Whole Blood 132 mg/dL (70-110)
[2023-01-12 07:30] LABS: ALT 10 U/L (4-34); AST 19 U/L (14-36); African American GFR (CKD) >90 (>60 ml/min/1.73 sqM); Albumin 1.7 g/dL (3.5-5.0); Albumin/Globulin Ratio 0.7; Alkaline Phosphatase 90 U/L (38-126); Anion Gap 2 mmol/L; Blood Urea Nitrogen 16 mg/dL (7-17); Calcium 7.6 mg/dL (8.4-10.2); Carbon Dioxide 22 mmol/L (22-30); Chloride 106 mmol/L (98-107); Globulin 2.5 g/dL; Glucose 103 mg/dL (74-99); Magnesium 1.7 mg/dL (1.6-2.3); Non-African American GFR(CKD) >90 (>60 ml/min/1.73 sqM); Phosphorus 2.7 mg/dL (2.5-4.5); Potassium 4.8 mmol/L (3.5-5.1); Sodium 130 mmol/L (137-145); Total Bilirubin 0.6 mg/dL (0.2-1.3); Total Protein 4.2 g/dL (6.3-8.2)
[2023-01-12] MEDS: FAMOTIDINE 20 MG TAB PO SCH ×2 (07:37→21:09)
[2023-01-12] MEDS: METOPROLOL TARTRATE 50 MG TAB PO SCH ×3 (07:37→21:09)
[2023-01-12] MEDS: PANTOPRAZOLE 40 MG/10 ML VIAL IV SCH (07:37)
[2023-01-12] MEDS: HEPARIN SODIUM,PORCINE 5,000 UNIT/ML 1 ML VIAL SQ SCH ×2 (07:37→21:09)
[2023-01-12] MEDS ORDERED: MAGNESIUM SULFATE-D5W PMX 1 GM in DEXTROSE/WATER 1 100ML.BAG IVPB ONE (11:00)
[2023-01-12 12:05] LABS: Glucose,Whole Blood 112 mg/dL (70-110)
--- NOTE | 2023-01-12 15:04 | P.PN ---
Subjective Progress Note Date: 01/12/23 Principal diagnosis: colon adenocarcinoma In follow-up today patient is working with ostomy nurse and doing very well. She is tender around the stoma but, denies overt abdominal pain, she is on TPN, no complaints. No fevers, nausea, unusual pain otherwise. Objective - Vital Signs Vital signs: Vital Signs Temp 98.5 F 01/12/23 12:00 Pulse 75 01/12/23 12:00 Resp 17 01/12/23 12:00 BP 170/83 01/12/23 12:59 Pulse Ox 99 01/12/23 12:00 FiO2 30 01/06/23 09:17 Intake & Output 01/11/23 01/12/23 01/12/23 18:59 06:59 18:59 Intake Total 590 Output Total 390 580 220 Balance -390 10 Weight 57.5 kg Intake: Oral 590 Output: Drainage 390 380 220 Right Upper Abdomen 390 380 220 Urine 200 Other: Voiding Method Toilet Toilet Toilet # Voids 1 4 1 # Bowel Movements 1 1 - Constitutional General appearance: Present: average body habitus, cooperative, no acute distress - EENT Eyes: Present: anicteric sclerae, EOMI ENT: Present: hearing grossly normal - Respiratory Details: Respirations even and unlabored at rest - Peripheral edema leg Peripheral Edema: bilateral: None - Gastrointestinal Gastrointestinal Comment(s): Left abdomen ostomy, stoma is pink General gastrointestinal: Present: soft - Integumentary Integumentary: Present: normal - Neurologic Neurologic: Present: CNII-XII intact - Musculoskeletal Musculoskeletal: Present: strength equal bilaterally - Psychiatric Psychiatric: Present: A&O x's 3, appropriate affect, intact judgment & insight - Labs CBC & Chem 7: 01/08/23 05:41 01/12/23 06:23 Labs: Abnormal Lab Results - Last 24 Hours (Table) 01/12/23 01/12/23 01/12/23 Range/Units 00:26 06:07 06:23 Sodium 130 L (137-145) mmol/L Creatinine 0.43 L (0.52-1.04) mg/dL Glucose 103 H (74-99) mg/dL POC Glucose (mg/dL) 145 H 132 H (70-110) mg/dL Calcium 7.6 L (8.4-10.2) mg/dL Total Protein 4.2 L (6.3-8.2) g/dL Albumin 1.7 L (3.5-5.0) g/dL 01/12/23 Range/Units 12:04 Sodium (137-145) mmol/L Creatinine (0.52-1.04) mg/dL Glucose (74-99) mg/dL POC Glucose (mg/dL) 112 H (70-110) mg/dL Calcium (8.4-10.2) mg/dL Total Protein (6.3-8.2) g/dL Albumin (3.5-5.0) g/dL Assessment and Plan (1) Colon adenocarcinoma Current Visit: Yes Status: Acute Priority: High Code(s): C18.9 - MALIGNANT NEOPLASM OF COLON, UNSPECIFIED SNOMED Code(s): 637190208 (2) Intractable abdominal pain Current Visit: Yes Status: Resolved Code(s): R10.9 - UNSPECIFIED ABDOMINAL PAIN SNOMED Code(s): 62732458 Plan: Colon adenocarcinoma -New diagnosis -Tissue has been requested to be sent for NGS and PDL 1 testing -Staging PET scan scheduled, appointment date and time in discharge plan -Follow-up appointment date and time placed in discharge plan-Scheduled for 4 days after the PET scan, anticipate NGS and PDL 1 testing to be completed by that time. Reviewed diagnosis with patient and at the bedside. I explained that prognosis and treatment plan cannot be reviewed at this time as staging needs to be completed for prognosis and NGS/PDL1 impacts treatment options so, they understand the need for the staging PET scan and the additional tumor testing. All questions answered to their satisfaction.
--- NOTE | 2023-01-12 15:54 | P.EN ---
Patient has mobility limitation that significantly impairs ability to participate in [facility] in the home. Patient is able to safely use walker. Patient functional mobility deficit can be resolved by the use of walker.
--- NOTE | 2023-01-12 16:07 | P.PN ---
Subjective Progress Note Date: 01/12/23 CHIEF COMPLAINT: Obstructing rectosigmoid cancer with perforation HISTORY OF PRESENT ILLNESS: Patient status post exploratory laparotomy and sigmoid resection with end colostomy on 01/05/23. Patient complains of pain in the incision site. Ports pain is controlled. She reports her appetite is still decreased. Denies any nausea or vomiting. She is having stool output through the ostomy. Afebrile. TANA drain 220ml output. PHYSICAL EXAM: VITAL SIGNS: Reviewed. GENERAL: Well-developed in no acute distress. ABDOMEN: Soft. Nondistended. Tender incision site. Incisional dressing clean dry and intact. Ostomy on the left stoma is pink with some sloughing. Ostomy with stool. TANA drain serous drainage NEUROLOGIC: Alert and oriented. Cranial nerves II through XII grossly intact. ASSESSMENT: 1. Obstructing rectosigmoid cancer with perforation status post Exploratory laparotomy and sigmoid resection with end colostomy PLAN: -TANA drain with increased output yellow, serous in color. Check creatinine level on TANA Drain fluid to rule out ureter injury -Continue ground diet -Continue TPN for nutrition support until oral intake increases -Continue antibiotics -Encouraged patient to increase activity level -Encouraged patient to use incentive spirometer -GI prophylaxis Protonix -DVT prophylaxis subcu heparin Physician Outside Physical Damage Appraiser note has been reviewed by physician. Signing provider agrees with the documented findings, assessment, and plan of care. Objective - Vital Signs Vital signs: Vital Signs Temp 97.5 F L 01/12/23 07:25 Pulse 64 01/12/23 07:25 Resp 17 01/12/23 07:25 BP 170/83 01/12/23 12:59 Pulse Ox 99 01/12/23 07:25 FiO2 30 01/06/23 09:17 Intake & Output 01/11/23 01/12/23 01/12/23 18:59 06:59 18:59 Intake Total 590 Output Total 390 580 160 Balance -390 10 -160 Weight 57.5 kg Intake: Oral 590 Output: Drainage 390 380 160 Right Upper Abdomen 390 380 160 Urine 200 Other: Voiding Method Toilet Toilet Toilet # Voids 1 4 1 # Bowel Movements 1 1 - Labs CBC & Chem 7: 01/08/23 05:41 01/12/23 06:23 Labs: Abnormal Lab Results - Last 24 Hours (Table) 01/12/23 01/12/23 01/12/23 Range/Units 00:26 06:07 06:23 Sodium 130 L (137-145) mmol/L Creatinine 0.43 L (0.52-1.04) mg/dL Glucose 103 H (74-99) mg/dL POC Glucose (mg/dL) 145 H 132 H (70-110) mg/dL Calcium 7.6 L (8.4-10.2) mg/dL Total Protein 4.2 L (6.3-8.2) g/dL Albumin 1.7 L (3.5-5.0) g/dL 01/12/23 Range/Units 12:04 Sodium (137-145) mmol/L Creatinine (0.52-1.04) mg/dL Glucose (74-99) mg/dL POC Glucose (mg/dL) 112 H (70-110) mg/dL Calcium (8.4-10.2) mg/dL Total Protein (6.3-8.2) g/dL Albumin (3.5-5.0) g/dL
[2023-01-12 17:49] LABS: Glucose,Whole Blood 120 mg/dL (70-110)
[2023-01-12] MEDS ORDERED: [UNRECOGNIZED DRUG - REMARK] IV SCH ×4 (21:00)
--- NOTE | 2023-01-12 21:32 | P.PN ---
Progress Note - Text Progress Note Date: 01/12/23 Chief Complaint: Abdominal pain Very pleasant 72-year-old patient, otherwise in good health. 2 months ago patient says been having some abdominal pain off and on. Abdominal pain become much worse yesterday. Patient bowel movements for other regular 2 months ago. Started having the last 2 months sometimes mushy bowel movement sometimes more regular. Patient's had decreased appetite. Lost about 20 pounds. No nausea vomiting. No fever no chills. Computed tomography scan the ER showed some thickening. In the colon. Pending surgery this afternoon January 06: ICU. 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 Patient underwent sigmoid resection with end colostomy. Evidence of cross tumor spread on the lateral pelvic keller. No output from the colostomy. Nothing by mouth. Patient has a TANA drain. Georges catheter. IV meropenem. January 07: ICU. Up in a recliner. On room air. Eyes ears. No NG tube. TNAA drain putting out. Colostomy very small output. Georges catheter in place. Discussed with patient and family at the bedside. Some pain at the operative site. January 08: Up in a chair. No output through the colostomy bag. TANA drain. No nausea vomiting. Some abdominal pain. On IV chips. Advanced to clear liquid per surgery for the supper. January 09: Sitting up in a chair. at the bedside. Colostomy bag no output. Some oozing around the TANA drain. Some abdominal pain present. Remains unclear liquids. TPN ordered via dietitian. January 10: Up in a chair. Slight liquid output through the colostomy back- dark. Some abdominal pain pain. TPN and lipids being started. IV meropenem. Place on low fiber diet by surgery. Blood pressure running on the higher side. Likely from pain. Lopressor added. January 11: Up in a chair. Some abdominal pain. Colostomy back: Liquids with some specks of solid. TPN and lipids. IV meropenem. Increase output to the TANA drain about 500 mL 24-hour period-jem colored. Decreased appetite [Nurse called me this morning the blood pressure running high. Above 200 systolic. Manual blood pressure was checked came back at 1 24 x 70. Told the nurse check all blood pressures manually- going forward.] January 12: Continuous abdominal pain. Small output to the colostomy bag. TPN and lipids. Blood pressures again out. Increase Lopressor to 50 mg 3 times a day. Continue with IV meropenem. Increase output for the TANA drain. Yellow, serous Active Medications Acetaminophen (Acetaminophen Tab 325 Mg Tab) 650 mg PO Q6HR PRN PRN Reason: Mild Pain or Fever > 100.5 Hydrocodone Bitart/Acetaminophen (Hydrocodone/Apap 5-325mg 1 Each Tab) 1 each PO Q4HR PRN PRN Reason: Moderate Pain (Scale 4 to 6) Last Admin: 01/12/23 21:07 Dose: 1 each Famotidine (Famotidine 20 Mg Tab) 20 mg PO BID [facility] Last Admin: 01/12/23 21:09 Dose: 20 mg Heparin Sodium (Porcine) (Heparin Sodium,Porcine 5,000 Unit/Ml 1 Ml Vial) 5,000 unit SQ Q12HR [facility] Last Admin: 01/12/23 21:09 Dose: 5,000 unit Hydromorphone HCl (Hydromorphone 1 Mg/Ml 1 Ml Syringe) 1 mg IVP Q4HR PRN PRN Reason: Severe Pain (Scale 7 to 10) Last Admin: 01/10/23 17:04 Dose: 1 mg Sodium Chloride (Saline 0.9%) 1,000 mls @ 125 mls/hr IV .Q8H [facility] Last Admin: 01/12/23 21:10 Dose: Not Given Fat Emulsion Intravenous 250 (ml/ IV Solution) 250 mls @ 21 mls/hr IV WeSa [facility] Last Admin: 01/10/23 16:29 Dose: 21 mls/hr Parenteral Vitamin Supplement 10 ml/ Zinc/Copper/Manganese/Selenium 1 ml/ Sodium Acetate 10 meq/ Amino Ac/Electrol/Dextrose/Calcium 1,016 mls @ 33 mls/hr IV .Q24H [facility] Meropenem 1 gm/ Sodium (Chloride) 100 mls @ 33.3 mls/hr IVPB Q8H [facility]; Protocol Last Admin: 01/12/23 21:07 Dose: 33.3 mls/hr Metoprolol Tartrate (Metoprolol Tartrate 50 Mg Tab) 50 mg PO TID [facility] Last Admin: 01/12/23 21:09 Dose: 50 mg Morphine Sulfate (Morphine Sulfate 2 Mg/Ml Syringe) 1 mg IV Q4HR PRN PRN Reason: Severe Pain (Scale 7 to 10) Last Admin: 10/12/23 08:09 Dose: 1 mg Naloxone HCl (Naloxone 0.4 Mg/Ml 1 Ml Vial) 0.2 mg IV Q2M PRN PRN Reason: Opioid Reversal Ondansetron HCl (Ondansetron 4 Mg/2 Ml Vial) 4 mg IVP Q8HR PRN PRN Reason: Nausea And Vomiting Last Admin: 01/06/23 08:57 Dose: 4 mg Ondansetron HCl (Ondansetron 4 Mg/2 Ml Vial) 4 mg IVP Q6HR PRN PRN Reason: Nausea And Vomiting Past medical history to include: Unremarkable Social history: . Smoker. No alcohol. Physical examination: VITAL SIGNS: 98.5, 75, 17, 150/76, 99% room air GENERAL: Up in a recliner, tired EYES: Pupils equal. Conjunctiva pale. HEENT: External appearance of nose and ears normal, oral cavity grossly normal. NECK: JVD not raised; masses not palpable. HEART: First and second heart sounds are normal; no edema. LUNGS: Respiratory rate normal; decreased breath sounds. ABDOMEN: Soft, tenderness, liver spleen not palpable, colostomy some liquid output. Right abdominal incision with dressing. TANA drain: Increase output PSYCH: Alert and oriented x3; mood and affect anxious. MUSCULOSKELETAL:No Clubbing/cyanosis;muscles-grossly intact. OA INVESTIGATIONS, reviewed in the clinical context: January 12: Potassium 4.8 creatinine 0.43 albumin 1.7 January 11: Potassium 5 creatinine 0.5 albumin 1.9 January 10: Potassium 4.6 creatinine 0.54 January 09: Sodium 129 potassium 4.5 creatinine 0.5 to January 08: White count 9.9 hemoglobin 8.2 potassium 4.5 creatinine 0.6 January 07: White count 14.3 hemoglobin 7.8 platelets 27 sodium 128 potassium 3.9 creatinine 0.83 Blood culture [January 04] E. coli/ESBL. [January 07]: Negative January 06: White count 7.6 hemoglobin 9.4 platelets 335 sodium 129 potassium 4.5 BUN 23 creatinine 1.05 albumin 2.0 White count 9.6 hemoglobin 11.6 platelets 385 sodium 132 potassium 3.8 BUN 21 creatinine 0.67 CRP 13.4 albumin 2.[address] abdomen and pelvis with contrast: Left kidney descended into his left pelvis marked amount of stool within the colon marked sigmoid wall thickening. Assessment and plan: -Acute bowel obstruction from large fungating sigmoid colon tumor creating obstruction and perforation. Status post surgery. Colostomy - liquid some specks of solid output. TANA drain: increased output Diet being advanced per surgery. -Probable secondary peritonitis from perforation, causing sepsis with blood culture -E. coli/ESBL IV meropenem -Large fungating sigmoid colon tumor creating obstruction and perforation. January 05: sigmoid resection with end colostomy. Evidence of tumor spread on the lateral pelvic kellre.-January [address] Turner -Acute postprocedure blood loss anemia expected from surgery IV Ferrlecit -Severe protein calorie malnutrition from decreased oral intake TPN and lipids - -Mild hyponatremia IV fluids IV meropenem. TPN and lipids . Follow with surgery.
[2023-01-12] MEDS: MVI, ADULT NO.4 WITH VIT K 10 ML, TRACE (CONC-1ML/DOSE) 1 ML in AMINO ACID 5%-D15W+LYTE... IV SCH ×3 (23:26)
[2023-01-13 00:51] LABS: Glucose,Whole Blood 118 mg/dL (70-110)
[2023-01-13] MEDS: SODIUM CHLORIDE 0.9% 1,000 ML IV SCH ×3 (02:29→21:20)
[2023-01-13] MEDS: HYDROcodone/APAP 5-325MG 1 EACH TAB PO PRN ×3 (04:38→16:43)
[2023-01-13] MEDS: MEROPENEM 1 GM in SODIUM CHLORIDE 0.9% 100 ML IVPB SCH ×3 (06:12→21:18)
[2023-01-13 06:39] LABS: ALT 12 U/L (4-34); AST 22 U/L (14-36); African American GFR (CKD) >90 (>60 ml/min/1.73 sqM); Albumin 1.9 g/dL (3.5-5.0); Albumin/Globulin Ratio 0.7; Alkaline Phosphatase 121 U/L (38-126); Anion Gap 3 mmol/L; Blood Urea Nitrogen 19 mg/dL (7-17); Calcium 7.7 mg/dL (8.4-10.2); Carbon Dioxide 23 mmol/L (22-30); Chloride 103 mmol/L (98-107); Globulin 2.6 g/dL; Glucose 101 mg/dL (74-99); Non-African American GFR(CKD) >90 (>60 ml/min/1.73 sqM); Phosphorus 2.3 mg/dL (2.5-4.5); Potassium 4.8 mmol/L (3.5-5.1); Sodium 129 mmol/L (137-145); Total Bilirubin 0.5 mg/dL (0.2-1.3); Total Protein 4.5 g/dL (6.3-8.2)
[2023-01-13 06:39] LABS: Glucose,Whole Blood 95 mg/dL (70-110)
[2023-01-13] MEDS: FAMOTIDINE 20 MG TAB PO SCH ×2 (08:44→20:02)
[2023-01-13] MEDS: HEPARIN SODIUM,PORCINE 5,000 UNIT/ML 1 ML VIAL SQ SCH ×2 (08:44→20:02)
[2023-01-13] MEDS: METOPROLOL TARTRATE 50 MG TAB PO SCH ×2 (08:44→20:02)
[2023-01-13] MEDS ORDERED: METOPROLOL TARTRATE 50 MG TAB PO STA (11:14)
[2023-01-13 12:05] LABS: Glucose,Whole Blood 115 mg/dL (70-110)
[2023-01-13] MEDS ORDERED: SODIUM PHOSPHATE 15 MMOL in DEXTROSE 5% IN WATER 250 ML IVPB ONE ×2 (13:00)
--- NOTE | 2023-01-13 13:58 | P.PN ---
Subjective Progress Note Date: 01/13/23 CHIEF COMPLAINT: Obstructing rectosigmoid cancer with perforation HISTORY OF PRESENT ILLNESS: Patient status post exploratory laparotomy and sigmoid resection with end colostomy on 01/05/23. Patient complains of pain across the lower abdomen. Denies any nausea or vomiting. Ostomy functioning. Reports a decreased appetite. Pain controlled. Afebrile. Sodium 129 potassium 4.8. creatinine 0.39 and fluid creatinine from TANA drain 0.4. Patient seen by urology service. PHYSICAL EXAM: VITAL SIGNS: Reviewed. GENERAL: Well-developed in no acute distress. ABDOMEN: Soft. Nondistended. Tender incision site. Incisional dressing clean dry and intact. Ostomy on the left stoma is pink. Ostomy with stool. TANA drain serous drainage NEUROLOGIC: Alert and oriented. Cranial nerves II through XII grossly intact. ASSESSMENT: 1. Obstructing rectosigmoid cancer with perforation status post Exploratory laparotomy and sigmoid resection with end colostomy PLAN: -Change diet to regular -Continue TPN for nutrition support until oral intake increases -Continue antibiotics -Encouraged patient to increase activity level -Encouraged patient to use incentive spirometer -GI prophylaxis Protonix -DVT prophylaxis subcu heparin Physician Marketing Effectiveness Manager note has been reviewed by physician. Signing provider agrees with the documented findings, assessment, and plan of care. Objective - Vital Signs Vital signs: Vital Signs Temp 97.5 F L 01/13/23 08:15 Pulse 80 01/13/23 08:15 Resp 21 01/13/23 08:15 BP 160/89 01/13/23 08:15 Pulse Ox 100 01/13/23 08:15 FiO2 30 01/06/23 09:17 Intake & Output 01/12/23 01/13/23 01/13/23 18:59 06:59 18:59 Output Total 300 290 Balance -300 -290 Weight 57.5 kg Output: Drainage 300 290 Right Upper Abdomen 300 290 Other: Voiding Method Toilet Toilet # Voids 1 5 1 - Labs CBC & Chem 7: 01/08/23 05:41 01/13/23 05:58 Labs: Abnormal Lab Results - Last 24 Hours (Table) 01/12/23 01/13/23 01/13/23 Range/Units 17:48 00:49 05:58 Sodium 129 L (137-145) mmol/L BUN 19 H (7-17) mg/dL Creatinine 0.39 L (0.52-1.04) mg/dL Glucose 101 H (74-99) mg/dL POC Glucose (mg/dL) 120 H 118 H (70-110) mg/dL Calcium 7.7 L (8.4-10.2) mg/dL Phosphorus 2.3 L (2.5-4.5) mg/dL Total Protein 4.5 L (6.3-8.2) g/dL Albumin 1.9 L (3.5-5.0) g/dL 01/13/23 Range/Units 12:04 Sodium (137-145) mmol/L BUN (7-17) mg/dL Creatinine (0.52-1.04) mg/dL Glucose (74-99) mg/dL POC Glucose (mg/dL) 115 H (70-110) mg/dL Calcium (8.4-10.2) mg/dL Phosphorus (2.5-4.5) mg/dL Total Protein (6.3-8.2) g/dL Albumin (3.5-5.0) g/dL Microbiology - Last 24 Hours (Table) 01/07/23 14:14 Blood Culture - Final Blood
[2023-01-13 17:33] LABS: Glucose,Whole Blood 110 mg/dL (70-110)
--- NOTE | 2023-01-13 19:53 | P.PN ---
Progress Note - Text Progress Note Date: 01/13/23 Chief Complaint: Abdominal pain Very pleasant 72-year-old patient, otherwise in good health. 2 months ago patient says been having some abdominal pain off and on. Abdominal pain become much worse yesterday. Patient bowel movements for other regular 2 months ago. Started having the last 2 months sometimes mushy bowel movement sometimes more regular. Patient's had decreased appetite. Lost about 20 pounds. No nausea vomiting. No fever no chills. Computed tomography scan the ER showed some thickening. In the colon. Pending surgery this afternoon January 06: ICU. 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 Patient underwent sigmoid resection with end colostomy. Evidence of cross tumor spread on the lateral pelvic keller. No output from the colostomy. Nothing by mouth. Patient has a TANA drain. Georges catheter. IV meropenem. January 07: ICU. Up in a recliner. On room air. Eyes ears. No NG tube. TANA drain putting out. Colostomy very small output. Georges catheter in place. Discussed with patient and family at the bedside. Some pain at the operative site. January 08: Up in a chair. No output through the colostomy bag. TANA drain. No nausea vomiting. Some abdominal pain. On IV chips. Advanced to clear liquid per surgery for the supper. January 09: Sitting up in a chair. at the bedside. Colostomy bag no output. Some oozing around the TANA drain. Some abdominal pain present. Remains unclear liquids. TPN ordered via dietitian. January 10: Up in a chair. Slight liquid output through the colostomy back- dark. Some abdominal pain pain. TPN and lipids being started. IV meropenem. Place on low fiber diet by surgery. Blood pressure running on the higher side. Likely from pain. Lopressor added. January 11: Up in a chair. Some abdominal pain. Colostomy back: Liquids with some specks of solid. TPN and lipids. IV meropenem. Increase output to the TANA drain about 500 mL 24-hour period-jem colored. Decreased appetite [Nurse called me this morning the blood pressure running high. Above 200 systolic. Manual blood pressure was checked came back at 1 24 x 70. Told the nurse check all blood pressures manually- going forward.] January 12: Continuous abdominal pain. Small output to the colostomy bag. TPN and lipids. Blood pressures again out. Increase Lopressor to 50 mg 3 times a day. Continue with IV meropenem. Increase output for the TANA drain. Yellow, serous January 13: Continues to have abdominal pain. Somewhat protuberant colostomy bag. TPN and lipids. Blood pressure still running high with significant contribution from pain. Lopressor increased to 100 mg twice a day. Discussed with patient and . Diet advance to regular per surgery. Seizures drainage from TANA drain Active Medications Acetaminophen (Acetaminophen Tab 325 Mg Tab) 650 mg PO Q6HR PRN PRN Reason: Mild Pain or Fever > 100.5 Hydrocodone Bitart/Acetaminophen (Hydrocodone/Apap 5-325mg 1 Each Tab) 1 each PO Q4HR PRN PRN Reason: Moderate Pain (Scale 4 to 6) Last Admin: 01/13/23 16:43 Dose: 1 each Famotidine (Famotidine 20 Mg Tab) 20 mg PO BID [facility] Last Admin: 01/13/23 08:44 Dose: 20 mg Heparin Sodium (Porcine) (Heparin Sodium,Porcine 5,000 Unit/Ml 1 Ml Vial) 5,000 unit SQ Q12HR [facility] Last Admin: 01/13/23 08:44 Dose: 5,000 unit Hydromorphone HCl (Hydromorphone 1 Mg/Ml 1 Ml Syringe) 1 mg IVP Q4HR PRN PRN Reason: Severe Pain (Scale 7 to 10) Last Admin: 01/10/23 17:04 Dose: 1 mg Sodium Chloride (Saline 0.9%) 1,000 mls @ 125 mls/hr IV .Q8H [facility] Last Admin: 01/13/23 12:20 Dose: Not Given Fat Emulsion Intravenous 250 (ml/ IV Solution) 250 mls @ 21 mls/hr IV WeSa [facility] Last Admin: 01/10/23 16:29 Dose: 21 mls/hr Parenteral Vitamin Supplement 10 ml/ Zinc/Copper/Manganese/Selenium 1 ml/ Sodium Acetate 10 meq/ Amino Ac/Electrol/Dextrose/Calcium 1,016 mls @ 33 mls/hr IV .Q24H [facility] Stop: 01/13/23 20:50 Last Admin: 01/13/23 02:57 Dose: 33 mls/hr Meropenem 1 gm/ Sodium (Chloride) 100 mls @ 33.3 mls/hr IVPB Q8H [facility]; Protocol Last Admin: 01/13/23 16:40 Dose: 33.3 mls/hr Parenteral Vitamin Supplement 10 ml/ Zinc/Copper/Manganese/Selenium 1 ml/ Sodium Acetate 10 meq/ Amino Ac/Electrol/Dextrose/Calcium 1,016 mls @ 33 mls/hr IV .Q24H [facility] Metoprolol Tartrate (Metoprolol Tartrate 50 Mg Tab) 100 mg PO BID [facility] Morphine Sulfate (Morphine Sulfate 2 Mg/Ml Syringe) 1 mg IV Q4HR PRN PRN Reason: Severe Pain (Scale 7 to 10) Last Admin: 01/08/23 08:09 Dose: 1 mg Naloxone HCl (Naloxone 0.4 Mg/Ml 1 Ml Vial) 0.2 mg IV Q2M PRN PRN Reason: Opioid Reversal Ondansetron HCl (Ondansetron 4 Mg/2 Ml Vial) 4 mg IVP Q8HR PRN PRN Reason: Nausea And Vomiting Last Admin: 01/06/23 08:57 Dose: 4 mg Ondansetron HCl (Ondansetron 4 Mg/2 Ml Vial) 4 mg IVP Q6HR PRN PRN Reason: Nausea And Vomiting Past medical history to include: Unremarkable Social history: . Smoker. No alcohol. Physical examination: VITAL SIGNS: 97.7, 77, 18, 148/87, 99% room air GENERAL: Reclining in bed, tired EYES: Pupils equal. Conjunctiva pale. HEENT: External appearance of nose and ears normal, oral cavity grossly normal. NECK: JVD not raised; masses not palpable. HEART: First and second heart sounds are normal; no edema. LUNGS: Respiratory rate normal; decreased breath sounds. ABDOMEN: Soft, tenderness, liver spleen not palpable, colostomy some liquid output. Right abdominal incision with dressing. TANA drain: Increase output PSYCH: Alert and oriented x3; mood and affect anxious. MUSCULOSKELETAL:No Clubbing/cyanosis;muscles-grossly intact. OA INVESTIGATIONS, reviewed in the clinical context: January 13: Potassium 4.8 creatinine 0.39 albumin 1.9 January 07: White count 14.3 hemoglobin 7.8 platelets 27 sodium 128 potassium 3.9 creatinine 0.83 Blood culture [January 04] E. coli/ESBL. [January 07]: Negative January 06: White count 7.6 hemoglobin 9.4 platelets 335 sodium 129 potassium 4.5 BUN 23 creatinine 1.05 albumin 2.0 White count 9.6 hemoglobin 11.6 platelets 385 sodium 132 potassium 3.8 BUN 21 creatinine 0.67 CRP 13.4 albumin 2.[address] abdomen and pelvis with contrast: Left kidney descended into his left pelvis marked amount of stool within the colon marked sigmoid wall thickening. Assessment and plan: -Acute bowel obstruction from large fungating sigmoid colon tumor creating obstruction and perforation. Status post surgery. Colostomy - liquid stool output TANA drain: increased output Regular diet -Probable secondary peritonitis from perforation, causing sepsis with blood culture -E. coli/ESBL IV meropenem -Large fungating sigmoid colon tumor creating obstruction and perforation. January 05: sigmoid resection with end colostomy. Evidence of tumor spread on the lateral pelvic keller.-January [address] Turner -Acute postprocedure blood loss anemia expected from surgery IV Ferrlecit -Severe protein calorie malnutrition from decreased oral intake TPN and lipids - -Mild hyponatremia IV fluids IV meropenem. TPN and lipids . Follow with surgery. Discussed with patient and . Increase activity.
--- NOTE | 2023-01-13 20:00 | P.GSCN ---
History of Present Illness Consult date: 01/13/23 Reason for Consult: Possible ureteral injury Requesting physician: Scout Turner History of present illness: The patient is a 72-year-old white female with an unremarkable urologic history. She has been treated for infrequent UTIs in the past. She denies any prior history of urolithiasis. She was told at one time that she has a "floating kidney". On January 05, she underwent exploratory laparotomy with sigmoid r esection and end colostomy. Pathology shows adenocarcinoma of the colon. Her TANA drainage fluid has changed in appearance such that it is now serous in color. The TANA drainage fluid creatinine level is 0.4. Review of Systems - Genitourinary Genitourinary: Denies flank pain Past Medical History Past Medical History: No Reported History History of Any Multi-Drug Resistant Organisms: ESBL Year Discovered:: 01/04/23 MDRO Source:: Blood Past Surgical History: Adenoidectomy, Appendectomy, Tonsillectomy Past Anesthesia/Blood Transfusion Reactions: Unable to Obtain Past Psychological History: No Psychological Hx Reported Smoking Status: Former smoker Past Alcohol Use History: None Reported Past Drug Use History: None Reported Medications and Allergies Home Medications Medication Instructions Recorded Confirmed Type No Known Home Medications 01/04/23 01/04/23 History Allergies Allergy/AdvReac Type Severity Reaction Status Date / Time No Known Allergies Allergy Verified 01/04/23 15:59 Surgical - Exam Vital Signs Temp Pulse Resp Pulse Ox 97.8 F 77 16 99 01/04/23 11:55 01/04/23 11:55 01/04/23 11:55 01/04/23 11:55 - General well developed, well nourished, no distress - Respiratory normal respiratory effort - Abdomen Soft, non-dstended. Incision clean and dry. Left colostomy stoma pink. - Psychiatric oriented to time, oriented to person, oriented to place, speech is normal, memory intact Results - Labs 01/08/23 05:41 01/13/23 05:58 Abnormal Lab Results - Last 24 Hours (Table) 01/12/23 01/12/23 01/13/23 Range/Units 12:04 17:48 00:49 Sodium (137-145) mmol/L BUN (7-17) mg/dL Creatinine (0.52-1.04) mg/dL Glucose (74-99) mg/dL POC Glucose (mg/dL) 112 H 120 H 118 H (70-110) mg/dL Calcium (8.4-10.2) mg/dL Phosphorus (2.5-4.5) mg/dL Total Protein (6.3-8.2) g/dL Albumin (3.5-5.0) g/dL 01/13/23 Range/Units 05:58 Sodium 129 L (137-145) mmol/L BUN 19 H (7-17) mg/dL Creatinine 0.39 L (0.52-1.04) mg/dL Glucose 101 H (74-99) mg/dL POC Glucose (mg/dL) (70-110) mg/dL Calcium 7.7 L (8.4-10.2) mg/dL Phosphorus 2.3 L (2.5-4.5) mg/dL Total Protein 4.5 L (6.3-8.2) g/dL Albumin 1.9 L (3.5-5.0) g/dL Microbiology - Last 24 Hours (Table) 01/07/23 14:14 Blood Culture - Final Blood Diabetes panel 01/13/23 Range/Units 05:58 Sodium 129 L (137-145) mmol/L Potassium 4.8 (3.5-5.1) mmol/L Chloride 103 (98-107) mmol/L Carbon Dioxide 23 (22-30) mmol/L BUN 19 H (7-17) mg/dL Creatinine 0.39 L (0.52-1.04) mg/dL Glucose 101 H (74-99) mg/dL Calcium 7.7 L (8.4-10.2) mg/dL AST 22 (14-36) U/L ALT 12 (4-34) U/L Alkaline Phosphatase 121 (38-126) U/L Total Protein 4.5 L (6.3-8.2) g/dL Albumin 1.9 L (3.5-5.0) g/dL Calcium panel 01/13/23 Range/Units 05:58 Calcium 7.7 L (8.4-10.2) mg/dL Phosphorus 2.3 L (2.5-4.5) mg/dL Albumin 1.9 L (3.5-5.0) g/dL Pituitary panel 01/13/23 Range/Units 05:58 Sodium 129 L (137-145) mmol/L Potassium 4.8 (3.5-5.1) mmol/L Chloride 103 (98-107) mmol/L Carbon Dioxide 23 (22-30) mmol/L BUN 19 H (7-17) mg/dL Creatinine 0.39 L (0.52-1.04) mg/dL Glucose 101 H (74-99) mg/dL Calcium 7.7 L (8.4-10.2) mg/dL Adrenal panel 01/13/23 Range/Units 05:58 Sodium 129 L (137-145) mmol/L Potassium 4.8 (3.5-5.1) mmol/L Chloride 103 (98-107) mmol/L Carbon Dioxide 23 (22-30) mmol/L BUN 19 H (7-17) mg/dL Creatinine 0.39 L (0.52-1.04) mg/dL Glucose 101 H (74-99) mg/dL Calcium 7.7 L (8.4-10.2) mg/dL Total Bilirubin 0.5 (0.2-1.3) mg/dL AST 22 (14-36) U/L ALT 12 (4-34) U/L Alkaline Phosphatase 121 (38-126) U/L Total Protein 4.5 L (6.3-8.2) g/dL Albumin 1.9 L (3.5-5.0) g/dL - Imaging CT scan - abdomen: report reviewed, image reviewed Assessment and Plan Assessment: I have reviewed the patient's preoperative CT scan, which shows no urologic abnormalities other than the presence of a left pelvic kidney. (1) Colon adenocarcinoma Current Visit: Yes Status: Acute Priority: High Code(s): C18.9 - MALIGNANT NEOPLASM OF COLON, UNSPECIFIED SNOMED Code(s): 317927688 (2) Pelvic kidney Current Visit: Yes Status: Acute Code(s): Q63.2 - ECTOPIC KIDNEY SNOMED Code(s): 74950488 Plan: Based on the creatinine level of the TANA drain fluid, a urinary leak has been excluded. If there is clinical suspicion of ureteral obstruction, which I have no reason to suspect, a renal ultrasound could be obtained to rule out hydronephrosis. Please notify me if I can be of any further assistance. Time with Patient: Greater than 30
[2023-01-14 00:13] LABS: Glucose,Whole Blood 107 mg/dL (70-110)
[2023-01-14] MEDS: HYDROcodone/APAP 5-325MG 1 EACH TAB PO PRN ×3 (00:23→16:32)
[2023-01-14] MEDS ORDERED: [UNRECOGNIZED DRUG - REMARK] IV SCH ×4 (03:00)
[2023-01-14] MEDS: SODIUM CHLORIDE 0.9% 1,000 ML IV SCH ×2 (03:02→14:23)
[2023-01-14] MEDS: MEROPENEM 1 GM in SODIUM CHLORIDE 0.9% 100 ML IVPB SCH ×3 (05:19→21:34)
[2023-01-14 06:08] LABS: Glucose,Whole Blood 90 mg/dL (70-110)
[2023-01-14 07:13] LABS: African American GFR (CKD) >90 (>60 ml/min/1.73 sqM); Anion Gap 4 mmol/L; Blood Urea Nitrogen 20 mg/dL (7-17); Calcium 7.6 mg/dL (8.4-10.2); Carbon Dioxide 21 mmol/L (22-30); Chloride 103 mmol/L (98-107); Glucose 99 mg/dL (74-99); Non-African American GFR(CKD) >90 (>60 ml/min/1.73 sqM); Phosphorus 2.4 mg/dL (2.5-4.5); Potassium 4.6 mmol/L (3.5-5.1); Sodium 128 mmol/L (137-145)
[2023-01-14] MEDS: KETOROLAC 15 MG/ML 1 ML VIAL IVP SCH ×2 (09:23→17:04)
[2023-01-14] MEDS: HYDROmorphone 1 MG/ML 1 ML SYRINGE IVP PRN (09:24)
[2023-01-14] MEDS: FAMOTIDINE 20 MG TAB PO SCH ×2 (09:25→20:05)
[2023-01-14] MEDS: METOPROLOL TARTRATE 50 MG TAB PO SCH ×2 (09:25→20:04)
[2023-01-14] MEDS: HEPARIN SODIUM,PORCINE 5,000 UNIT/ML 1 ML VIAL SQ SCH ×2 (09:25→20:05)
[2023-01-14] MEDS ORDERED: SODIUM PHOSPHATE 15 MMOL in DEXTROSE 5% IN WATER 250 ML IVPB ONE ×2 (10:00)
--- NOTE | 2023-01-14 10:54 | P.PN ---
Subjective Progress Note Date: 01/14/23 CHIEF COMPLAINT: Obstructing rectosigmoid cancer with perforation HISTORY OF PRESENT ILLNESS: Patient status post exploratory laparotomy and sigmoid resection with end colostomy on 01/05/23. Patient complains of more pain in the left lower quadrant today. She denies any nausea or vomiting. Still has poor oral intake. Ostomy is functioning. Blood pressure has remained elevated. Urinary leak ruled out based on TANA drain creatinine level. Patient seen by urology service. Afebrile. WBC 9.1 Sodium 128 supplement given her pharmacy. potassium is 4.6 creatinine 0.34 TANA drain 260 mL serous output through the night. PHYSICAL EXAM: VITAL SIGNS: Reviewed. GENERAL: Well-developed in no acute distress. ABDOMEN: Soft. Nondistended. incision clean, dry and intact. Ostomy with beefy red stoma. Liquidy stool noted. Tender with palpation in the left lower. TANA drain serous drainage NEUROLOGIC: Alert and oriented. Cranial nerves II through XII grossly intact. ASSESSMENT: 1. Obstructing rectosigmoid cancer with perforation status post Exploratory laparotomy and sigmoid resection with end colostomy 2. Colonic adenocarcinoma but on pathology PLAN: -Add Toradol to help with pain management -discontinue TPN -Discontinue IV fluids -Discontinue central line -Continue regular diet -Continue antibiotics -Encouraged patient to increase activity level -Encouraged patient to use incentive spirometer -GI prophylaxis Protonix -Medicine service managing hypertension -Anticipate discharge tomorrow -Patient can shower -DVT prophylaxis subcu heparin Physician Software Engineer Intern note has been reviewed by physician. Signing provider agrees with the documented findings, assessment, and plan of care. Objective - Vital Signs Vital signs: Vital Signs Temp 98.4 F 01/14/23 06:55 Pulse 79 01/14/23 06:55 Resp 16 01/14/23 06:55 BP 169/104 01/14/23 06:55 Pulse Ox 98 01/14/23 00:00 FiO2 30 01/06/23 09:17 Intake & Output 01/13/23 01/14/23 01/14/23 18:59 06:59 18:59 Intake Total 396 300 Output Total 220 350 120 Balance 176 -50 -120 Weight 57.5 kg 58 kg Intake: Intake, IV Titration 396 Amount Mvi, Adult No.4 with Vit 396 K 10 ml Trace (Conc-1Ml/ Dose) 1 ml In Amino Acid 5%-D15w+Lytes*E* 1,000 ml @ 33 mls/hr IV .Q24H [facility] Rx#:[id number] Oral 300 Output: Drainage 120 350 120 Right Upper Abdomen 120 350 120 Stool 100 Other: Voiding Method Toilet Toilet # Voids 1 8 2 - Labs CBC & Chem 7: 01/14/23 06:38 01/14/23 06:38 Labs: Abnormal Lab Results - Last 24 Hours (Table) 01/13/23 01/14/23 Range/Units 12:04 06:38 Sodium 128 L (137-145) mmol/L Carbon Dioxide 21 L (22-30) mmol/L BUN 20 H (7-17) mg/dL Creatinine 0.34 L (0.52-1.04) mg/dL POC Glucose (mg/dL) 115 H (70-110) mg/dL Calcium 7.6 L (8.4-10.2) mg/dL Phosphorus 2.4 L (2.5-4.5) mg/dL
[2023-01-14 11:11] LABS: Anisocytosis Slight; Basophils % (A) 0 %; Eosinophils # (A) 0.1 k/uL (0-0.7); Eosinophils % (A) 1 %; HCT 28.5 % (34.0-46.0); HGB 8.9 gm/dL (11.4-16.0); Hypochromasia Slight; Lymphocytes # (A) 0.7 k/uL (1.0-4.8); Lymphocytes % (A) 8 %; MCH 27.5 pg (25.0-35.0); MCHC 31.4 g/dL (31.0-37.0); MCV 87.5 fL (80.0-100.0); Mean Platelet Volume 8.3; Monocytes # (A) 0.4 k/uL (0-1.0); Monocytes % (A) 4 %; Neutrophils # (A) 7.9 k/uL (1.3-7.7); Neutrophils % (A) 87 %; Platelet Count 311 k/uL (150-450); RBC 3.25 m/uL (3.80-5.40); RDW 17.1 % (11.5-15.5); WBC 9.1 k/uL (3.8-10.6)
[2023-01-14 11:58] LABS: Glucose,Whole Blood 124 mg/dL (70-110)
[2023-01-14] MEDS: FAT EMULSION 20% 250 ML in EMPTY BAG 1 BAG IV SCH (14:28)
--- NOTE | 2023-01-14 17:12 | P.PN ---
Progress Note - Text Progress Note Date: 01/14/23 Chief Complaint: Abdominal pain Very pleasant 72-year-old patient, otherwise in good health. 2 months ago patient says been having some abdominal pain off and on. Abdominal pain become much worse yesterday. Patient bowel movements for other regular 2 months ago. Started having the last 2 months sometimes mushy bowel movement sometimes more regular. Patient's had decreased appetite. Lost about 20 pounds. No nausea vomiting. No fever no chills. Computed tomography scan the ER showed some thickening. In the colon. Pending surgery this afternoon January 06: ICU. 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 Patient underwent sigmoid resection with end colostomy. Evidence of cross tumor spread on the lateral pelvic keller. No output from the colostomy. Nothing by mouth. Patient has a TAAN drain. Georges catheter. IV meropenem. January 07: ICU. Up in a recliner. On room air. Eyes ears. No NG tube. TANA drain putting out. Colostomy very small output. Georges catheter in place. Discussed with patient and family at the bedside. Some pain at the operative site. January 08: Up in a chair. No output through the colostomy bag. TANA drain. No nausea vomiting. Some abdominal pain. On IV chips. Advanced to clear liquid per surgery for the supper. January 09: Sitting up in a chair. at the bedside. Colostomy bag no output. Some oozing around the TANA drain. Some abdominal pain present. Remains unclear liquids. TPN ordered via dietitian. January 10: Up in a chair. Slight liquid output through the colostomy back- dark. Some abdominal pain pain. TPN and lipids being started. IV meropenem. Place on low fiber diet by surgery. Blood pressure running on the higher side. Likely from pain. Lopressor added. January 11: Up in a chair. Some abdominal pain. Colostomy back: Liquids with some specks of solid. TPN and lipids. IV meropenem. Increase output to the TANA drain about 500 mL 24-hour period-jem colored. Decreased appetite [Nurse called me this morning the blood pressure running high. Above 200 systolic. Manual blood pressure was checked came back at 1 24 x 70. Told the nurse check all blood pressures manually- going forward.] January 12: Continuous abdominal pain. Small output to the colostomy bag. TPN and lipids. Blood pressures again out. Increase Lopressor to 50 mg 3 times a day. Continue with IV meropenem. Increase output for the TANA drain. Yellow, serous January 13: Continues to have abdominal pain. Somewhat protuberant colostomy bag. TPN and lipids. Blood pressure still running high with significant contribution from pain. Lopressor increased to 100 mg twice a day. Discussed with patient and . Diet advance to regular per surgery. Seizures drainage from TANA drain January 14: Up in a chair. Eating some. Continues to have increased output from TANA drain. Serious. TPN IV fluids being weaned off. Surgeries planning for discharge tomorrow. Discussed with patient. I'm reluctant to increase patient's blood pressure hour because of significant abdominal pain blood pressure has been running high. We will keep Lopressor the current dose. Patient does continues to have significant abdominal pain. Active Medications Acetaminophen (Acetaminophen Tab 325 Mg Tab) 650 mg PO Q6HR PRN PRN Reason: Mild Pain or Fever > 100.5 Hydrocodone Bitart/Acetaminophen (Hydrocodone/Apap 5-325mg 1 Each Tab) 1 each PO Q4HR PRN PRN Reason: Moderate Pain (Scale 4 to 6) Last Admin: 01/14/23 16:32 Dose: 1 each Famotidine (Famotidine 20 Mg Tab) 20 mg PO BID [facility] Last Admin: 01/14/23 09:25 Dose: 20 mg Heparin Sodium (Porcine) (Heparin Sodium,Porcine 5,000 Unit/Ml 1 Ml Vial) 5,000 unit SQ Q12HR [facility] Last Admin: 01/14/23 09:25 Dose: 5,000 unit Hydromorphone HCl (Hydromorphone 1 Mg/Ml 1 Ml Syringe) 1 mg IVP Q4HR PRN PRN Reason: Severe Pain (Scale 7 to 10) Last Admin: 01/14/23 09:24 Dose: 1 mg Fat Emulsion Intravenous 250 (ml/ IV Solution) 250 mls @ 21 mls/hr IV WeSa [facility] Last Admin: 01/14/23 14:28 Dose: Not Given Meropenem 1 gm/ Sodium (Chloride) 100 mls @ 33.3 mls/hr IVPB Q8H [facility]; Protocol Last Admin: 01/14/23 15:05 Dose: 33.3 mls/hr Parenteral Vitamin Supplement 10 ml/ Zinc/Copper/Manganese/Selenium 1 ml/ Sodium Acetate 10 meq/ Amino Ac/Electrol/Dextrose/Calcium 1,016 mls @ 33 mls/hr IV .Q24H [facility] Stop: 01/15/23 02:59 Last Admin: 01/14/23 03:01 Dose: 33 mls/hr Parenteral Vitamin Supplement 10 ml/ Zinc/Copper/Manganese/Selenium 1 ml/ Sodium Acetate 10 meq/ Sodium Phosphate 15 mmol/ Amino Ac/Electrol/Dextrose/Calcium 1,021 mls @ 33 mls/hr IV .Q24H [facility] Ketorolac Tromethamine (Ketorolac 15 Mg/Ml 1 Ml Vial) 15 mg IVP Q6HR [facility] Stop: 01/19/23 09:11 Last Admin: 01/14/23 17:04 Dose: 15 mg Metoprolol Tartrate (Metoprolol Tartrate 50 Mg Tab) 100 mg PO BID [facility] Last Admin: 01/14/23 09:25 Dose: 100 mg Morphine Sulfate (Morphine Sulfate 2 Mg/Ml Syringe) 1 mg IV Q4HR PRN PRN Reason: Severe Pain (Scale 7 to 10) Last Admin: 01/08/23 08:09 Dose: 1 mg Naloxone HCl (Naloxone 0.4 Mg/Ml 1 Ml Vial) 0.2 mg IV Q2M PRN PRN Reason: Opioid Reversal Ondansetron HCl (Ondansetron 4 Mg/2 Ml Vial) 4 mg IVP Q8HR PRN PRN Reason: Nausea And Vomiting Last Admin: 01/06/23 08:57 Dose: 4 mg Ondansetron HCl (Ondansetron 4 Mg/2 Ml Vial) 4 mg IVP Q6HR PRN PRN Reason: Nausea And Vomiting Past medical history to include: Unremarkable Social history: . Smoker. No alcohol. Physical examination: VITAL SIGNS: 98.6, 79, 18, 150/98, 98% room air GENERAL: Up in a chair EYES: Pupils equal. Conjunctiva pale. HEENT: External appearance of nose and ears normal, oral cavity grossly normal. NECK: JVD not raised; masses not palpable. HEART: First and second heart sounds are normal; no edema. LUNGS: Respiratory rate normal; decreased breath sounds. ABDOMEN: Soft, tenderness, liver spleen not palpable, colostomy some liquid output. Right abdominal incision with dressing. TANA drain: Increase output PSYCH: Alert and oriented x3; mood and affect anxious. MUSCULOSKELETAL:No Clubbing/cyanosis;muscles-grossly intact. OA INVESTIGATIONS, reviewed in the clinical context: January 14: White count 9.1 hemoglobin 8.9 sodium 128 potassium 4.6 January 13: Potassium 4.8 creatinine 0.39 albumin 1.9 January 07: White count 14.3 hemoglobin 7.8 platelets 27 sodium 128 potassium 3.9 creatinine 0.83 Blood culture [January 04] E. coli/ESBL. [January 07]: Negative January 06: White count 7.6 hemoglobin 9.4 platelets 335 sodium 129 potassium 4.5 BUN 23 creatinine 1.05 albumin 2.0 White count 9.6 hemoglobin 11.6 platelets 385 sodium 132 potassium 3.8 BUN 21 creatinine 0.67 CRP 13.4 albumin 2.[address] abdomen and pelvis with contrast: Left kidney descended into his left pelvis marked amount of stool within the colon marked sigmoid wall thickening. Assessment and plan: -Acute bowel obstruction from large fungating sigmoid colon tumor creating obstruction and perforation. Status post surgery. Colostomy - liquid stool output TANA drain: increased output-serous Regular diet -Probable secondary peritonitis from perforation, causing sepsis with blood culture -E. coli/ESBL IV meropenem -Large fungating sigmoid colon tumor creating obstruction and perforation. January 05: sigmoid resection with end colostomy. Evidence of tumor spread on the lateral pelvic keller.-January [address] Turner -Acute postprocedure blood loss anemia expected from surgery IV Ferrlecit -Severe protein calorie malnutrition from decreased oral intake TPN and lipids - -Mild hyponatremia IV fluids IV meropenem. TPN and lipids . Being weaned off. Will consult ID for discharge antibiotics
[2023-01-14 17:18] LABS: Glucose,Whole Blood 87 mg/dL (70-110)
[2023-01-15] MEDS ORDERED: [UNRECOGNIZED DRUG - REMARK] IV SCH ×5 (03:00)
[2023-01-15] MEDS: KETOROLAC 15 MG/ML 1 ML VIAL IVP SCH ×5 (06:26→23:45)
[2023-01-15] MEDS: MEROPENEM 1 GM in SODIUM CHLORIDE 0.9% 100 ML IVPB SCH ×2 (06:27→15:16)
[2023-01-15 06:32] LABS: Anisocytosis Slight; Basophils % (A) 0 %; Eosinophils % (A) 0 %; HCT 25.9 % (34.0-46.0); HGB 8.3 gm/dL (11.4-16.0); Lymphocytes # (A) 0.7 k/uL (1.0-4.8); Lymphocytes % (A) 8 %; MCHC 32.1 g/dL (31.0-37.0); MCV 87.2 fL (80.0-100.0); Monocytes # (A) 0.3 k/uL (0-1.0); Monocytes % (A) 4 %; Neutrophils # (A) 7.7 k/uL (1.3-7.7); Neutrophils % (A) 87 %; Platelet Count 315 k/uL (150-450); RBC 2.97 m/uL (3.80-5.40); RDW 18.2 % (11.5-15.5); WBC 8.8 k/uL (3.8-10.6)
[2023-01-15 06:44] LABS: African American GFR (CKD) >90 (>60 ml/min/1.73 sqM); Anion Gap 4 mmol/L; Blood Urea Nitrogen 24 mg/dL (7-17); Calcium 7.5 mg/dL (8.4-10.2); Carbon Dioxide 23 mmol/L (22-30); Chloride 103 mmol/L (98-107); Glucose 68 mg/dL (74-99); Magnesium 1.9 mg/dL (1.6-2.3); Non-African American GFR(CKD) >90 (>60 ml/min/1.73 sqM); Phosphorus 2.9 mg/dL (2.5-4.5); Potassium 4.6 mmol/L (3.5-5.1); Sodium 130 mmol/L (137-145)
[2023-01-15] MEDS: FAMOTIDINE 20 MG TAB PO SCH ×2 (08:36→20:14)
[2023-01-15] MEDS: HYDROcodone/APAP 5-325MG 1 EACH TAB PO PRN ×3 (08:36→20:14)
[2023-01-15] MEDS: METOPROLOL TARTRATE 50 MG TAB PO SCH ×2 (08:36→20:15)
[2023-01-15] MEDS: HEPARIN SODIUM,PORCINE 5,000 UNIT/ML 1 ML VIAL SQ SCH ×2 (08:37→20:15)
--- NOTE | 2023-01-15 14:05 | P.DS ---
Providers Date of admission: 01/05/23 11:07 Expected date of discharge: 01/15/23 Attending physician: Scout Turner Consults: 01/04/23 16:02 Consult Physician Urgent Consulting Provider: Scout Turner Consult Reason/Comments: Intractable abdominal pain, abnormal CT Do you want consulting provider notified?: Yes 01/05/23 19:39 Consult Physician Routine Consulting Provider: Elke Hernandez Consult Reason/Comments: ICU management Do you want consulting provider notified?: Yes 01/06/23 03:35 Consult Physician Routine Consulting Provider: Jonathan Rizzo Consult Reason/Comments: suspected colon cancer Do you want consulting provider notified?: Yes 01/13/23 07:19 Consult Physician Routine Consulting Provider: Sonu Farias Consult Reason/Comments: Possible ureteral injury Do you want consulting provider notified?: Yes 01/14/23 17:12 Consult Physician Routine Consulting Provider: Juarez Lombardi Consult Reason/Comments: Review antibiotics Do you want consulting provider notified?: Yes Primary care physician: Jung Kingsaint [facility]izabeth [facility] Course: Discharge diagnosis 1. Obstructing rectosigmoid cancer with perforation status post Exploratory laparotomy and sigmoid resection with end colostomy 2. Colonic adenocarcinoma 3. Bacteremia with ESBL E. coli 4. Hyponatremia improving Hospital course This is a 72-year-old female who presented to the hospital with complaints of abdominal pain that has been present for about 2 months. She reports that the pain is located in the right lower quadrant and does go across the lower abdomen occasionally to the left lower quadrant. Computed tomography scan abdomen and pelvis reported markedly abnormal sigmoid colon with dilatation and ill- definition of the wall likely secondary to marked inflammation either secondary to diverticulitis. Neoplasm not excluded. Her CEA level is elevated at 125. Patient is status post exploratory laparotomy and sigmoid resection with end colostomy for obstructing rectosigmoid cancer with perforation. Patient reports her pain is controlled. She is tolerating diet. Her ostomy is functioning. She is afebrile. She has been up and ambulating. She did have positive blood cultures with ESBL E. coli. She's been seen by infectious disease and they're ranging for IV antibiotics outpatient and midline placement prior to discharge. Patient can be discharged once antibiotics are arranged and med rec completed by medicine service. Patient will follow up with oncology service outpatient. Please refer to chart for any further details. Physician Barrow Worker Helper note has been reviewed by physician. Signing provider agrees with the documented findings, assessment, and plan of care. Patient Condition at Discharge: Stable Plan - Discharge Summary Discharge Rx Participant: No New Discharge Prescriptions: New Acetaminophen Tab [Tylenol] 1,000 mg PO Q6HR PRN #30 tablet PRN Reason: Pain Ibuprofen [Motrin] 600 mg PO Q8HR PRN #30 tab PRN Reason: Pain oxyCODONE HCL [OxyIR] 5 mg PO Q6H PRN 3 Days #12 tab PRN Reason: Pain Discharge Medication List Acetaminophen Tab [Tylenol] 1,000 mg PO Q6HR PRN #30 tablet 01/15/23 [Rx] Ibuprofen [Motrin] 600 mg PO Q8HR PRN #30 tab 01/15/23 [Rx] oxyCODONE HCL [OxyIR] 5 mg PO Q6H PRN 3 Days #12 tab 01/15/23 [Rx] Follow up Appointment(s)/Referral(s): [facility], [NON-STAFF] - 01/16/23 12:00 pm (Nurse will call to setup time for initial appointment on 01.16.23) Jung Nunez DO [Primary Care Provider] - 1 Week Keena Lopez MD [STAFF PHYSICIAN] - 02/02/23 1:00 pm Scout Turner MD [STAFF PHYSICIAN] - 1 Week Patient Instructions/Handouts: Colostomy Care (DC), Silvano-Pimentel Drain Care (DC), Colectomy (DC) Activity/Diet/Wound Care/Special Instructions: PET scan sched for 01/29/23 at 630AM at [facility] BILLING for itemized bill - [phone] [address] while taking OxyIR No lifting over 10 pounds You may shower. No soaking or tub baths for 2 weeks Very light activity until you are reevaluated at your follow up appointment with your surgeon Keep a log of TANA drain output and bring with you to your follow-up appointment Milk/strip drains 2-3 times a day Discharge Disposition: HOME WITH HOME HEALTH SERVICES Plan of Treatment: Patient was able to demonstrate emptying ostomy pouch. Was educated and participated in ostomy change as well. Supplies : 1 piece convex Ridge drainage system [id number] Sami seal used on upper portion of stoma [id number] Adapt stoma powder [id number]
--- NOTE | 2023-01-15 15:26 | P.PN ---
Subjective Progress Note Date: 01/15/23 CHIEF COMPLAINT: Obstructing rectosigmoid cancer with perforation HISTORY OF PRESENT ILLNESS: Patient status post exploratory laparotomy and sigmoid resection with end colostomy on 01/05/23. Patient complains of more pain in the left lower quadrant today. She denies any nausea or vomiting. Still has poor oral intake. Ostomy is functioning. Blood pressure has remained elevated. Urinary leak ruled out based on TANA drain creatinine level. Patient seen by urology service. Afebrile. WBC 8.8 NA better at 130 PHYSICAL EXAM: VITAL SIGNS: Reviewed. GENERAL: Well-developed in no acute distress. ABDOMEN: Soft. Nondistended. incision clean, dry and intact. Ostomy with beefy red stoma. Liquidy stool noted. Tender with palpation in the left lower. TANA drain serous drainage NEUROLOGIC: Alert and oriented. Cranial nerves II through XII grossly intact. ASSESSMENT: 1. Obstructing rectosigmoid cancer with perforation status post Exploratory laparotomy and sigmoid resection with end colostomy 2. Colonic adenocarcinoma but on pathology 3. ESBL bacteremia PLAN: -Anticipated discharge for today. However awaiting IV antibiotics to be arranged. We'll plan for discharge tomorrow. -Continue regular diet -Continue supportive care -DVT prophylaxis subcu heparin Physician Inventory Control Associate note has been reviewed by physician. Signing provider agrees with the documented findings, assessment, and plan of care. Objective - Vital Signs Vital signs: Vital Signs Temp 97.3 F L 01/15/23 11:35 Pulse 60 01/15/23 11:35 Resp 18 01/15/23 11:35 BP 137/83 01/15/23 11:35 Pulse Ox 99 01/15/23 11:35 FiO2 30 01/06/23 09:17 Intake & Output 01/14/23 01/15/23 01/15/23 18:59 06:59 18:59 Intake Total 500 Output Total 410 260 300 Balance -410 240 -300 Weight 58 kg 58 kg Intake: Oral 500 Output: Drainage 310 260 200 Right Upper Abdomen 310 260 200 Stool 100 100 Other: Voiding Method Toilet Toilet Toilet # Voids 1 8 - Labs CBC & Chem 7: 01/15/23 05:20 01/15/23 05:20 Labs: Abnormal Lab Results - Last 24 Hours (Table) 01/15/23 01/15/23 Range/Units 05:20 05:20 RBC 2.97 L (3.80-5.40) m/uL Hgb 8.3 L (11.4-16.0) gm/dL Hct 25.9 L (34.0-46.0) % RDW 18.2 H (11.5-15.5) % Lymphocytes # 0.7 L (1.0-4.8) k/uL Sodium 130 L (137-145) mmol/L BUN 24 H (7-17) mg/dL Creatinine 0.34 L (0.52-1.04) mg/dL Glucose 68 L (74-99) mg/dL Calcium 7.5 L (8.4-10.2) mg/dL
--- NOTE | 2023-01-15 16:02 | CDI ---
Documentation Clarification Form Date: 01/15/2023 03:40:31 PM From: Kari Lunsford RN CCDS Phone: [phone] Admit Date: 01/05/2023 11:07:00 AM Patient Name: Natasha Edwards Visit Number: [id number] Discharge Date: ATTENTION: The Clinical Documentation Specialists (CDI) and [facility] Coding Staff appreciate your assistance in clarifying documentation. Please respond to the clarification below the line at the bottom and electronically sign. The CDI & [facility] Coding staff will review the response and follow-up if needed. Please note: Queries are made part of the Legal Health Record. If you have any questions, please contact the author of this message via ITS. Dr. Scout Turner The patient has Abdominal sepsis documented on 01/07, Pulmonary note. Based on this information and the findings below, is there an additional diagnosis that is clinically appropriate for this patient? History/Risk Factors: 72-year-old female presents to the ED with abdominal pain that started two months ago but became much worse yesterday. Medical History: Former smoker, H&P, 01/05. Clinical Indicators: 01/06, Medicine note: Probable secondary peritonitis from perforation, causing sepsis with blood culture positive for gram negative bacilli. 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 Treatment: ICU Admission, Surgery see above. Antibiotics: 01/04 01/05 Zosyn IVPB Q8HR; 01/05 01/12 Meropenem IVPB Q8H IV Bolus: 01/04 0.9NS IVPB x 1 Is there an additional diagnosis that is clinically appropriate for this patient? [ xx ] Sepsis secondary to Gram negative bacilli and perforated sigmoid colon POA [ ] Other, please specify [ ] Unable to determine SIRS Criteria: 2 or more of the following may indicate SIRS Temperature < 96.8F (36C) or > 101.0F (38.3C) Heart Rate > 90 bpm Respiratory Rate > 20 breaths/min or PaCO2 < 32 mmHg White Blood Cell Count > 12,000 or < 4,000 cells/mm3 or > 10% bands (Template Last Reviewed: March 2022) MTDD
[2023-01-15] MEDS: ERTAPENEM 1 GM in SODIUM CHLORIDE 0.9% 50 ML IVPB SCH (16:07)
--- NOTE | 2023-01-15 20:01 | P.PN ---
Progress Note - Text Progress Note Date: 01/15/23 Chief Complaint: Abdominal pain Very pleasant 72-year-old patient, otherwise in good health. 2 months ago patient says been having some abdominal pain off and on. Abdominal pain become much worse yesterday. Patient bowel movements for other regular 2 months ago. Started having the last 2 months sometimes mushy bowel movement sometimes more regular. Patient's had decreased appetite. Lost about 20 pounds. No nausea vomiting. No fever no chills. Computed tomography scan the ER showed some thickening. In the colon. Pending surgery this afternoon January 06: ICU. 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 Patient underwent sigmoid resection with end colostomy. Evidence of cross tumor spread on the lateral pelvic keller. No output from the colostomy. Nothing by mouth. Patient has a TANA drain. Georges catheter. IV meropenem. January 07: ICU. Up in a recliner. On room air. Eyes ears. No NG tube. TANA drain putting out. Colostomy very small output. Georges catheter in place. Discussed with patient and family at the bedside. Some pain at the operative site. January 08: Up in a chair. No output through the colostomy bag. TANA drain. No nausea vomiting. Some abdominal pain. On IV chips. Advanced to clear liquid per surgery for the supper. January 09: Sitting up in a chair. at the bedside. Colostomy bag no output. Some oozing around the TANA drain. Some abdominal pain present. Remains unclear liquids. TPN ordered via dietitian. January 10: Up in a chair. Slight liquid output through the colostomy back- dark. Some abdominal pain pain. TPN and lipids being started. IV meropenem. Place on low fiber diet by surgery. Blood pressure running on the higher side. Likely from pain. Lopressor added. January 11: Up in a chair. Some abdominal pain. Colostomy back: Liquids with some specks of solid. TPN and lipids. IV meropenem. Increase output to the TANA drain about 500 mL 24-hour period-jem colored. Decreased appetite [Nurse called me this morning the blood pressure running high. Above 200 systolic. Manual blood pressure was checked came back at 1 24 x 70. Told the nurse check all blood pressures manually- going forward.] January 12: Continuous abdominal pain. Small output to the colostomy bag. TPN and lipids. Blood pressures again out. Increase Lopressor to 50 mg 3 times a day. Continue with IV meropenem. Increase output for the TANA drain. Yellow, serous January 13: Continues to have abdominal pain. Somewhat protuberant colostomy bag. TPN and lipids. Blood pressure still running high with significant contribution from pain. Lopressor increased to 100 mg twice a day. Discussed with patient and . Diet advance to regular per surgery. Seizures drainage from TANA drain January 14: Up in a chair. Eating some. Continues to have increased output from TANA drain. Serious. TPN IV fluids being weaned off. Surgeries planning for discharge tomorrow. Discussed with patient. I'm reluctant to increase patient's blood pressure hour because of significant abdominal pain blood pressure has been running high. We will keep Lopressor the current dose. Patient does continues to have significant abdominal pain. January 15: Still having intermittent significant abdominal pain. Significant output through the TANA drain. Discharge planning in place. Per ID patient to receive Invanz for 7 days. Midline is being placed. Discussed with the patient and . Prognosis guarded. Active Medications Acetaminophen (Acetaminophen Tab 325 Mg Tab) 650 mg PO Q6HR PRN PRN Reason: Mild Pain or Fever > 100.5 Hydrocodone Bitart/Acetaminophen (Hydrocodone/Apap 5-325mg 1 Each Tab) 1 each PO Q4HR PRN PRN Reason: Moderate Pain (Scale 4 to 6) Last Admin: 01/15/23 15:42 Dose: 1 each Famotidine (Famotidine 20 Mg Tab) 20 mg PO BID [facility] Last Admin: 01/15/23 08:36 Dose: 20 mg Heparin Sodium (Porcine) (Heparin Sodium,Porcine 5,000 Unit/Ml 1 Ml Vial) 5,000 unit SQ Q12HR [facility] Last Admin: 01/15/23 08:37 Dose: 5,000 unit Hydromorphone HCl (Hydromorphone 1 Mg/Ml 1 Ml Syringe) 1 mg IVP Q4HR PRN PRN Reason: Severe Pain (Scale 7 to 10) Last Admin: 01/14/23 09:24 Dose: 1 mg Ertapenem 1 gm/ Sodium (Chloride) 50 mls @ 100 mls/hr IVPB DAILY [facility]; Protocol Last Admin: 01/15/23 16:07 Dose: 100 mls/hr Ketorolac Tromethamine (Ketorolac 15 Mg/Ml 1 Ml Vial) 15 mg IVP Q6HR [facility] Stop: 01/19/23 09:11 Last Admin: 01/15/23 18:47 Dose: 15 mg Metoprolol Tartrate (Metoprolol Tartrate 50 Mg Tab) 100 mg PO BID [facility] Last Admin: 01/15/23 08:36 Dose: 100 mg Morphine Sulfate (Morphine Sulfate 2 Mg/Ml Syringe) 1 mg IV Q4HR PRN PRN Reason: Severe Pain (Scale 7 to 10) Last Admin: 01/08/23 08:09 Dose: 1 mg Naloxone HCl (Naloxone 0.4 Mg/Ml 1 Ml Vial) 0.2 mg IV Q2M PRN PRN Reason: Opioid Reversal Ondansetron HCl (Ondansetron 4 Mg/2 Ml Vial) 4 mg IVP Q6HR PRN PRN Reason: Nausea And Vomiting Past medical history to include: Unremarkable Social history: . Smoker. No alcohol. Physical examination: VITAL SIGNS: 97.3, 60, 18, 137/83, 99% room air GENERAL: Up in a chair EYES: Pupils equal. Conjunctiva pale. HEENT: External appearance of nose and ears normal, oral cavity grossly normal. NECK: JVD not raised; masses not palpable. HEART: First and second heart sounds are normal; no edema. LUNGS: Respiratory rate normal; decreased breath sounds. ABDOMEN: Soft, tenderness, liver spleen not palpable, colostomy some liquid output. Right abdominal incision with dressing. TANA drain: Increase output PSYCH: Alert and oriented x3; mood and affect anxious. MUSCULOSKELETAL:No Clubbing/cyanosis;muscles-grossly intact. OA INVESTIGATIONS, reviewed in the clinical context: January 14: White count 9.1 hemoglobin 8.9 sodium 128 potassium 4.6 January 13: Potassium 4.8 creatinine 0.39 albumin 1.9 January 07: White count 14.3 hemoglobin 7.8 platelets 27 sodium 128 potassium 3.9 creatinine 0.83 Blood culture [January 04] E. coli/ESBL. [January 07]: Negative January 06: White count 7.6 hemoglobin 9.4 platelets 335 sodium 129 potassium 4.5 BUN 23 creatinine 1.05 albumin 2.0 White count 9.6 hemoglobin 11.6 platelets 385 sodium 132 potassium 3.8 BUN 21 creatinine 0.67 CRP 13.4 albumin 2.[address] abdomen and pelvis with contrast: Left kidney descended into his left pelvis marked amount of stool within the colon marked sigmoid wall thickening. Assessment and plan: -Acute bowel obstruction from large fungating sigmoid colon tumor creating obstruction and perforation. Status post surgery. Colostomy - liquid stool output TANA drain: increased output-serous Regular diet -Probable secondary peritonitis from perforation, causing sepsis with blood culture -E. coli/ESBL IV meropenem Per ID patient to be discharged on IV Invanz. 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 January 05: sigmoid resection with end colostomy. Evidence of tumor spread on the lateral pelvic keller.-January [address] Turner Staging PET scan scheduled for outpatient. Patient follow-up with oncology after that. -Acute postprocedure blood loss anemia expected from surgery IV Ferrlecit given -Severe protein calorie malnutrition from decreased oral intake TPN and lipids - -Mild hyponatremia IV fluids IV Invanz being arranged for home.. TPN and lipids weaned off . Getting a PICC line. Probably discharge tomorrow.
--- NOTE | 2023-01-15 22:25 | P.CONS ---
History of Present Illness - Reason for Consult Consult date: 01/15/23 review antibiotics Requesting physician: Krishan Knapp - Chief Complaint Abdominal pain x few days - History of Present Illness Patient is a 72-year-old female presenting to the hospital 10 days ago on 01/15/2023 for evaluation of abdominal pain patient symptom was going on for 2 days before presentation to hospital with associated nausea did not have any constipation on arrival to the ER patient did have a CT of abdominal pelvis markedly abnormal sigmoid colon with dilatation and definition of the wall likely secondary to marked inflammation secondary diverticulitis thin amount of free intraperitoneal air and small amount of ascites patient was evaluated by general surgery and was taken to the OR on 01/05/2023 with evidence of colon obstruction and 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 coli and the patient has been treated with the meropenem with the patient getting ready for discharge today infectious disease was consulted last evening for management of antibiotic therapy though the patient has been in the hospital for almost 10 days now On today's evaluation that is 01/15/2023 the patient denies having any fever or any chills, the patient is breathing comfortably circumventing of some abdominal pain which is mostly episodic with no clear exacerbating factor and mild to moderate intensity denies any nausea vomiting did have output in her colostomy and no drainage from the incision or any urinary symptoms Review of Systems Positive point and negatives has been mentioned in the HPI, complete review of systems was performed and all other systems are negative Past Medical History Past Medical History: No Reported History History of Any Multi-Drug Resistant Organisms: ESBL Year Discovered:: 01/04/23 MDRO Source:: Blood Past Surgical History: Adenoidectomy, Appendectomy, Tonsillectomy Past Anesthesia/Blood Transfusion Reactions: Unable to Obtain Past Psychological History: No Psychological Hx Reported Smoking Status: Former smoker Past Alcohol Use History: None Reported Past Drug Use History: None Reported Medications and Allergies Home Medications Medication Instructions Recorded Confirmed Type Acetaminophen Tab [Tylenol] 1,000 mg PO Q6HR PRN #30 tablet 01/15/23 Rx Ertapenem [INVanz] 1 gm IVPB Q24H #7 each 01/15/23 Rx Ibuprofen [Motrin] 600 mg PO Q8HR PRN #30 tab 01/15/23 Rx Famotidine [Pepcid] 20 mg PO BID #60 tab 01/16/23 Rx Metoprolol Tartrate [Lopressor] 100 mg PO BID #60 tablet 01/16/23 Rx oxyCODONE HCL [OxyIR] 5 mg PO Q4H PRN 7 Days #42 tab 01/16/23 Rx Allergies Allergy/AdvReac Type Severity Reaction Status Date / Time No Known Allergies Allergy Verified 01/04/23 15:59 Physical Exam Vitals: Vital Signs Temp Pulse Resp BP Pulse Ox 01/15/23 07:25 98.4 F 81 18 146/81 100 01/15/23 02:31 98.0 F 74 18 194/99 97 01/14/23 19:47 98.2 F 91 20 153/83 100 01/14/23 14:00 98.6 F 79 18 150/98 Intake and Output 01/14/23 01/15/23 01/15/23 22:59 06:59 14:59 Intake Total 500 Output Total 140 140 100 Balance -140 360 -100 Intake: Oral 500 Output: Drainage 140 140 100 Right Upper Abdomen 140 140 100 Other: Voiding Method Toilet # Voids 1 8 Weight 58 kg GENERAL DESCRIPTION: an elderly female up in the chair, no distress. No tachypnea or accessory muscle of respiration use. HEENT: Shows Pallor , no scleral icterus. Oral mucous membrane is dry. No pharyngeal erythema or thrush NECK: Trachea central, no thyromegaly. LUNGS: Unlabored breathing. Clear to auscultation anteriorly. No wheeze or crackle. HEART: S1, S2, regular rate and rhythm. No loud murmur ABDOMEN: Soft, no tenderness, midline incision is intact did have output in her colostomy bag EXTREMITIES: No edema of feet. SKIN: No rash, no masses palpable. NEUROLOGICAL: The patient is awake, alert, oriented x3, mood and affect normal. Results CBC & Chem 7: 01/15/23 05:20 01/16/23 06:17 Labs: Abnormal Lab Results - Last 24 Hours (Table) 01/14/23 01/15/23 01/15/23 Range/Units 11:57 05:20 05:20 RBC 2.97 L (3.80-5.40) m/uL Hgb 8.3 L (11.4-16.0) gm/dL Hct 25.9 L (34.0-46.0) % RDW 18.2 H (11.5-15.5) % Lymphocytes # 0.7 L (1.0-4.8) k/uL Sodium 130 L (137-145) mmol/L BUN 24 H (7-17) mg/dL Creatinine 0.34 L (0.52-1.04) mg/dL Glucose 68 L (74-99) mg/dL POC Glucose (mg/dL) 124 H (70-110) mg/dL Calcium 7.5 L (8.4-10.2) mg/dL Assessment and Plan (1) Peritonitis Status: Acute Code(s): K65.9 - PERITONITIS, UNSPECIFIED SNOMED Code(s): 98140689 (2) Infection due to ESBL-producing Escherichia coli Status: Acute Code(s): A49.8 - OTHER BACTERIAL INFECTIONS OF UNSPECIFIED SITE; Z16.12 - EXTENDED SPECTRUM BETA LACTAMASE (ESBL) RESISTANCE SNOMED Code(s): 752818799 (3) Bacteremia Status: Acute Code(s): R78.81 - BACTEREMIA SNOMED Code(s): 9911447 Plan: 1patient present to hospital 10 days ago for abdominal pain has been diagnosed with a perforated rectosigmoid obstructing tumor status post laparotomy colectomy and diverting colostomy did have evidence of ESBL E. coli bacteremia source likely abdominal as no other clear focus of this bacteremia and did have repeat blood cultures has been negative 2-we will recommend at least 2 weeks of antibiotic for her bacteremia has received about 8 days we will consider 7 days of IV Invanz on discharge 3-antibiotic has been switched from meropenem to Invanz 1 g daily, midline has been ordered and prescription for Invanz was given to the outsole caser to arrange for outpatient IV and by therapy Time spent for this consultation include reviewing her 10 days of hospital stay We will follow on clinical condition and cultures to further adjust medication if needed Thank you for this consultation we will follow the patient along with you Dictation was produced using [employer] dictation software. please excuse any grammatical, word or spelling errors. Time with Patient: Greater than 30
[2023-01-16] MEDS: HYDROcodone/APAP 5-325MG 1 EACH TAB PO PRN ×3 (02:38→12:46)
[2023-01-16] MEDS: KETOROLAC 15 MG/ML 1 ML VIAL IVP SCH ×2 (05:12→12:45)
[2023-01-16 07:02] LABS: African American GFR (CKD) >90 (>60 ml/min/1.73 sqM); Anion Gap 3 mmol/L; Blood Urea Nitrogen 24 mg/dL (7-17); Carbon Dioxide 28 mmol/L (22-30); Chloride 100 mmol/L (98-107); Glucose 72 mg/dL (74-99); Non-African American GFR(CKD) >90 (>60 ml/min/1.73 sqM); Phosphorus 2.8 mg/dL (2.5-4.5); Potassium 4.7 mmol/L (3.5-5.1); Sodium 131 mmol/L (137-145)
[2023-01-16 08:04] VITALS: RESP 18; TEMP 97.6
[2023-01-16] MEDS: ERTAPENEM 1 GM in SODIUM CHLORIDE 0.9% 50 ML IVPB SCH (08:39)
[2023-01-16] MEDS: METOPROLOL TARTRATE 50 MG TAB PO SCH (08:42)
[2023-01-16] MEDS: HEPARIN SODIUM,PORCINE 5,000 UNIT/ML 1 ML VIAL SQ SCH (08:42)
[2023-01-16] MEDS: FAMOTIDINE 20 MG TAB PO SCH (08:42)
[2023-01-16 10:42] VITALS: BP 120/67; PULSE 59
--- NOTE | 2023-01-16 15:13 | P.PN ---
Subjective Progress Note Date: 01/16/23 Principal diagnosis: ESBL E. coli bacteremia Patient is a 72-year-old female presenting to the hospital 11 days ago on 01/15/2023 for evaluation of abdominal pain patient did have evidence of obstructive rectosigmoid tumor with perforation status post laparotomy colectomy and diverting colostomy also have evidence of ESBL E. coli bacteremia likely secondary to abdominal source. On today's evaluation that is 01/16/2023, the patient remains to be afebrile the patient is breathing comfortably on room air without need for supplemental oxygen, the patient denies chest pain, shortness of breath or cough, patient denies nausea/vomiting , no diarrhea and abdominal pain has decreased in intensity. Patient did have vital 8.8 as of yesterday, creatinine 0.40, blood culture repeat on 01/07/2023 negative Objective - Vital Signs Vital signs: Vital Signs Temp 97.6 F 01/16/23 07:21 Pulse 59 L 01/16/23 10:20 Resp 18 01/16/23 07:21 BP 120/67 01/16/23 10:20 Pulse Ox 98 01/16/23 10:20 FiO2 30 01/06/23 09:17 Intake & Output 01/15/23 01/16/23 01/16/23 18:59 06:59 18:59 Output Total 500 280 160 Balance -500 -280 -160 Weight 58 kg 56 kg Output: Drainage 400 280 160 Right Upper Abdomen 400 280 160 Stool 100 Other: Voiding Method Toilet Toilet # Voids 1 1 - Exam GENERAL DESCRIPTION: An elderly female up in the chair in no distress RESPIRATORY SYSTEM: Unlabored breathing , decreased breath sounds at bases HEART: S1 S2 regular rate and rhythm , ABDOMEN: Soft , no tenderness EXTREMITIES: No edema feet - Labs CBC & Chem 7: 01/15/23 05:20 01/16/23 06:17 Labs: Abnormal Lab Results - Last 24 Hours (Table) 01/16/23 Range/Units 06:17 Sodium 131 L (137-145) mmol/L BUN 24 H (7-17) mg/dL Creatinine 0.40 L (0.52-1.04) mg/dL Glucose 72 L (74-99) mg/dL Calcium 8.0 L (8.4-10.2) mg/dL Assessment and Plan (1) Bacteremia Status: Acute Code(s): R78.81 - BACTEREMIA SNOMED Code(s): 7859136 (2) Infection due to ESBL-producing Escherichia coli Status: Acute Code(s): A49.8 - OTHER BACTERIAL INFECTIONS OF UNSPECIFIED SITE; Z16.12 - EXTENDED SPECTRUM BETA LACTAMASE (ESBL) RESISTANCE SNOMED Code(s): 751182091 (3) Peritonitis Status: Acute Code(s): K65.9 - PERITONITIS, UNSPECIFIED SNOMED Code(s): 74435093 Plan: 1patient present to hospital 10 days ago for abdominal pain has been diagnosed with a perforated rectosigmoid obstructing tumor status post laparotomy colectomy and diverting colostomy did have evidence of ESBL E. coli bacteremia source likely abdominal as no other clear focus of this bacteremia and did have repeat blood cultures has been negative 2-we will recommend at least 2 weeks of antibiotic for her bacteremia , plan is for a seven-day course of IV Invanz on discharge and close outpatient follow-up Family the bedside questions were answered Dictation was produced using [employer] dictation software. please excuse any grammatical, word or spelling errors. Time with Patient: Less than 30
--- NOTE | 2023-01-16 16:58 | P.PN ---
Progress Note - Text Progress Note Date: 01/16/23 Chief Complaint: Abdominal pain Very pleasant 72-year-old patient, otherwise in good health. 2 months ago patient says been having some abdominal pain off and on. Abdominal pain become much worse yesterday. Patient bowel movements for other regular 2 months ago. Started having the last 2 months sometimes mushy bowel movement sometimes more regular. Patient's had decreased appetite. Lost about 20 pounds. No nausea vomiting. No fever no chills. Computed tomography scan the ER showed some thickening. In the colon. Pending surgery this afternoon January 06: ICU. 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 Patient underwent sigmoid resection with end colostomy. Evidence of cross tumor spread on the lateral pelvic keller. No output from the colostomy. Nothing by mouth. Patient has a TANA drain. Georges catheter. IV meropenem. January 07: ICU. Up in a recliner. On room air. Eyes ears. No NG tube. TANA drain putting out. Colostomy very small output. Georges catheter in place. Discussed with patient and family at the bedside. Some pain at the operative site. January 08: Up in a chair. No output through the colostomy bag. TANA drain. No nausea vomiting. Some abdominal pain. On IV chips. Advanced to clear liquid per surgery for the supper. January 09: Sitting up in a chair. at the bedside. Colostomy bag no output. Some oozing around the TANA drain. Some abdominal pain present. Remains unclear liquids. TPN ordered via dietitian. January 10: Up in a chair. Slight liquid output through the colostomy back- dark. Some abdominal pain pain. TPN and lipids being started. IV meropenem. Place on low fiber diet by surgery. Blood pressure running on the higher side. Likely from pain. Lopressor added. January 11: Up in a chair. Some abdominal pain. Colostomy back: Liquids with some specks of solid. TPN and lipids. IV meropenem. Increase output to the TANA drain about 500 mL 24-hour period-jem colored. Decreased appetite [Nurse called me this morning the blood pressure running high. Above 200 systolic. Manual blood pressure was checked came back at 1 24 x 70. Told the nurse check all blood pressures manually- going forward.] January 12: Continuous abdominal pain. Small output to the colostomy bag. TPN and lipids. Blood pressures again out. Increase Lopressor to 50 mg 3 times a day. Continue with IV meropenem. Increase output for the TANA drain. Yellow, serous January 13: Continues to have abdominal pain. Somewhat protuberant colostomy bag. TPN and lipids. Blood pressure still running high with significant contribution from pain. Lopressor increased to 100 mg twice a day. Discussed with patient and . Diet advance to regular per surgery. Seizures drainage from TANA drain January 14: Up in a chair. Eating some. Continues to have increased output from TANA drain. Serious. TPN IV fluids being weaned off. Surgeries planning for discharge tomorrow. Discussed with patient. I'm reluctant to increase patient's blood pressure hour because of significant abdominal pain blood pressure has been running high. We will keep Lopressor the current dose. Patient does continues to have significant abdominal pain. January 15: Still having intermittent significant abdominal pain. Significant output through the TANA drain. Discharge planning in place. Per ID patient to receive Invanz for 7 days. Midline is being placed. Discussed with the patient and . Prognosis guarded. January 16: Patient be discharged and IV Invanz. Care was discussed with the patient and at the bedside. Pain medications per general surgery. Blood pressure sitting of pain was discussed. Patient does have several readings and 140s and 120s. Pain control. Follow-up with oncology, surgery, ID. Home care. Current medications reviewed Past medical history to include: Unremarkable Social history: . Smoker. No alcohol. Physical examination: VITAL SIGNS: 97.6, 56, 18, 120/67, 98% room air GENERAL: Planning in bed, comfortable EYES: Pupils equal. Conjunctiva pale. HEENT: External appearance of nose and ears normal, oral cavity grossly normal. NECK: JVD not raised; masses not palpable. HEART: First and second heart sounds are normal; no edema. LUNGS: Respiratory rate normal; decreased breath sounds. ABDOMEN: Soft, some tenderness, liver spleen not palpable, colostomy some liquid output. Right abdominal incision with dressing. TANA drain: output PSYCH: Alert and oriented x3; mood and affect anxious. MUSCULOSKELETAL:No Clubbing/cyanosis;muscles-grossly intact. OA INVESTIGATIONS, reviewed in the clinical context: January 16: Potassium 4.7 creatinine 0.4 January 07: White count 14.3 hemoglobin 7.8 platelets 27 sodium 128 potassium 3.9 creatinine 0.83 Blood culture [January 04] E. coli/ESBL. [January 07]: Negative January 06: White count 7.6 hemoglobin 9.4 platelets 335 sodium 129 potassium 4.5 BUN 23 creatinine 1.05 albumin 2.0 White count 9.6 hemoglobin 11.6 platelets 385 sodium 132 potassium 3.8 BUN 21 creatinine 0.67 CRP 13.4 albumin 2.[address] abdomen and pelvis with contrast: Left kidney descended into his left pelvis marked amount of stool within the colon marked sigmoid wall thickening. Assessment and plan: -Acute bowel obstruction from large fungating sigmoid colon tumor creating obstruction and perforation. Status post surgery. Colostomy - liquid stool output TANA drain: increased output-serous Regular diet -Probable secondary peritonitis from perforation, causing sepsis with blood culture -E. coli/ESBL IV meropenem Per ID patient to be discharged on IV Invanz. 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 January 05: sigmoid resection with end colostomy. Evidence of tumor spread on the lateral pelvic keller.-January [address] Turner Staging PET scan scheduled for outpatient. Patient follow-up with oncology outpatient -Acute postprocedure blood loss anemia expected from surgery IV Ferrlecit given -Severe protein calorie malnutrition from decreased oral intake TPN and lipids -given -Mild hyponatremia Received IV fluids -Full code Discussed at length with patient has been. Questions answered. Being disc harged home today. Processes guarded.
== END 2023-01-16 13:43 | disposition home health service (06) | DRG 853 ==
LOC: EC 11:50 → 4SSUR 15:09 → OBSVTOIN 01-05 11:07 → 2SICU 01-05 19:10 → 5NMEDONC 01-07 15:37
PROVIDERS: ADMIT Surgery; ATTEND Surgery
PROC: 0DTN0ZZ Resection of Sigmoid Colon, Open Approach (ICD-10-PCS; 2023-01-05)
PROC: 02HV33Z Insertion of Infusion Device into Superior Vena Cava, Percutaneous Approach (ICD-10-PCS; 2023-01-05)
PROC: 0D1M0Z4 Bypass Descending Colon to Cutaneous, Open Approach (ICD-10-PCS; principal; 2023-01-05 12:30)
DX: A41.59 Other Gram-negative sepsis (principal); E43 Unspecified severe protein-calorie malnutrition; K35.33 Acute appendicitis with perforation, localized peritonitis, and gangrene, with abscess; C19 Malignant neoplasm of rectosigmoid junction; D62 Acute posthemorrhagic anemia; K57.80 Diverticulitis of intestine, part unspecified, with perforation and abscess without bleeding; E87.1 Hypo-osmolality and hyponatremia; K56.609 Unspecified intestinal obstruction, unspecified as to partial versus complete obstruction; R18.8 Other ascites; Z16.12 Extended spectrum beta lactamase (ESBL) resistance; Z68.1 Body mass index [BMI] 19.9 or less, adult; E86.1 Hypovolemia; F17.200 Nicotine dependence, unspecified, uncomplicated; Q63.2 Ectopic kidney; R56.9 Unspecified convulsions; Z79.899 Other long term (current) drug therapy; Z87.440 Personal history of urinary (tract) infections
CPT/HCPCS: 36410; 36415; 36600; 71045; 74177; 76937; 80048; 80053; 82150; 82330; 82378; 82570; 82805; 83605; 83690; 83735; 84100; 84478; 85025; 85610; 85652; 85730; 86140; 86850; 86900; 86901; 87040; 87077; 87186; 88307; 88309; 88341; 88342; 94002; 94003; 96365; 96366; 96375; 96376; 99285

== ENCOUNTER → 2023-01-29 | Outpatient (CLI) | payer MEDICARE ==
--- NOTE | 2023-01-29 12:48 | PE ---
EXAMINATION TYPE: PET CT fusion skull to thigh DATE OF EXAM: 01/29/2023 CLINICAL INDICATION:Female, 72 years old with history of C18.7 COLON CANCER; TECHNIQUE: Following the intravenous administration of 10.38 mCi of F-18 FDG, whole body images are performed from the skull base to the midthigh. Images are reviewed on the computer in the coronal, axial, and sagittal planes. Reconstructed rotating images are created on independent workstation and reviewed on the computer. A non-contrast CT is performed in conjunction with the PET scan. Glucose level 78 mg/dL CT DLP: 160 mGycm, Automated exposure control for dose reduction was used. COMPARISON: CT 01/04/2023, PET/CT None, FINDINGS: Mediastinal SUV mean is 1.6. Hepatic parenchyma SUV mean is 1.9. SKULL BASE AND NECK: * No suspicious radiotracer activity. * Suspected artifact near the epidermis of the right neck near the sternocleidomastoid muscle measur es max SUV 2.2. CHEST, MEDIASTINUM, AND HILAR REGION: No suspicious radiotracer activity. ABDOMEN AND PELVIS: Circumferential wall thickening of the sigmoid colon/rectum region seen on prior CT 01/04/2023 has bee n surgically removed. There is left lower quadrant ostomy present. * There is some uptake tracking along the bowel near the inferior aspect of right hepatic lobe is fe lt to be in small bowel max SUV 7.3. * There is somewhat peripheral FDG activity around a fluid collection the pelvis next SUV along the periphery 11.4. This area measures roughly 4.2 x 3.9 cm. * Lymph node posterior to the cecum measuring 7 mm in short axis max SUV 11.8. * More inferiorly in the rectum increased radiotracer uptake measuring Max SUV up to 10.0. * Small bowel uptake also felt to be extending down into the pelvis near the surgical bed cystic mas s. MUSCULOSKELETAL STRUCTURES: No suspicious radiotracer activity. OTHER CT: Right aphakia. Atherosclerosis of the carotid bifurcations and coronary arteries. There is trace bilateral pleural effusions. Scattered airspace opacities which are groundglass. The infrarenal abdominal aorta measures up to 3.0 cm. Left lower quadrant ostomy. There is a left-sided pelvic kidn ey. The left kidney is is located in the pelvis. IMPRESSION: 1. Postsurgical changes with persistent peripherally FDG avid cystic lesion in the pelvis in the omaira gical bed uptake along the rectal stump concerning for residual disease. 2. Right posterior cecum lymph node with increased metabolic activity concerning for metastatic dise ase. 3. Uptake within small bowel is felt to be just under the liver right hepatic lobe as well as layeri ng within the pelvis. Attention on follow-up imaging. 3. Less opacity throughout the lungs correlate for atypical pneumonia.
== END | disposition home or self-care (01) ==
LOC: RADPETMAIN 06:20
PROVIDERS: ATTEND Internal Medicine
DX: C18.7 Malignant neoplasm of sigmoid colon (principal); R91.8 Other nonspecific abnormal finding of lung field
CPT/HCPCS: 78815; A9552

== ENCOUNTER 2023-02-24 08:53 | Day surgery (SDC) | payer MEDICARE ==
[~2023-02-24 08:53] MED LIST: ACETAMINOPHEN TAB 500 MG TAB PO PRN; HEPARIN SODIUM,PORCINE/PF 5,000 UNIT/0.5 ML SYRINGE SQ PRN; HYDROmorphone 0.5 MG/0.5 ML SYRINGE IVP PRN; LACTATED RINGERS 1,000 ML IV SCH; MIDAZOLAM 2 MG/2 ML VIAL IV PRN; Pre Op ABX Message 1 EACH MISC MISCELLANE ONE
[2023-02-24] MEDS ORDERED: ONDANSETRON 4 MG/2 ML VIAL ONE (09:38)
--- NOTE | 2023-02-24 09:40 | P.GSHP ---
History of Present Illness H&P Date: 02/24/23 Chief Complaint: Colon cancer This is a 72-year-old female who presents today for Port-A-Cath placement. Patient previously diagnosed with colon cancer. Past Medical History Past Medical History: Cancer, Hypertension, Osteoarthritis (OA) Additional Past Medical History / Comment(s): BP elevated recently but not requiring meds yet, recent dx. colon cancer w/surgery History of Any Multi-Drug Resistant Organisms: ESBL Date of last positivie culture/infection: 01/04/23 MDRO Source:: Blood Past Surgical History: Adenoidectomy, Appendectomy, Bowel Resection, Tonsillectomy Additional Past Surgical History / Comment(s): cataracts removed, sigmoid resection w/colostomy Past Anesthesia/Blood Transfusion Reactions: No Reported Reaction Smoking Status: Former smoker - Past Family History Mother Family Medical History: Cancer Medications and Allergies Home Medications Medication Instructions Recorded Confirmed Type Ferrous Sulfate [Feosol] 325 mg PO DAILY 02/18/23 02/24/23 History Allergies Allergy/AdvReac Type Severity Reaction Status Date / Time No Known Allergies Allergy Verified 02/24/23 09:22 Surgical - Exam - General well developed, well nourished, no distress - Eyes PERRL - ENT normal pinna - Neck no masses - Respiratory normal expansion - Cardiovascular Rhythm: regular - Abdomen Abdomen: soft, non tender Assessment and Plan Assessment: History of colon cancer. We'll perform Port-A-Cath placement
[2023-02-24] MEDS ORDERED: LIDOCAINE 1% INJ 10MG/ML (20 ML MDV) ONE (09:55)
[2023-02-24] MEDS ORDERED: SODIUM CHLORIDE 0.9% 100 ML BAG ONE (09:55)
[2023-02-24] MEDS ORDERED: ceFAZolin 1,000 MG VIAL ONE (09:55)
[2023-02-24] MEDS ORDERED: MIDAZOLAM 2 MG/2 ML VIAL ONE (09:55)
[2023-02-24] MEDS ORDERED: PROPOFOL 10 MG/ML 20 ML VIAL IV ONE (09:55)
[2023-02-24] MEDS ORDERED: LABETALOL SYRINGE 5 MG/ML (4 ML SYR) IVP ONE (09:55)
[2023-02-24] MEDS ORDERED: fentaNYL (PF) 50 MCG/ML 2 ML AMP ONE (09:55)
[2023-02-24] MEDS ORDERED: PHENYLEPHRINE-0.9% NACL SYG 1,000 MCG/10 ML SYRINGE ONE (09:55)
[2023-02-24 10:03] VITALS: RESP 16; TEMP 98.2
[2023-02-24] MEDS ORDERED: BUPIVACAINE (PF) 0.25% 30 ML VIAL SQ ONE (10:14)
[2023-02-24] MEDS ORDERED: SODIUM CHLORIDE 0.9% 50 ML with ceFAZolin 1,000 MG IV ONE ×2 (10:14)
[2023-02-24] MEDS ORDERED: IOPAMIDOL-370 100ML BTL MISCELLANE ONE (10:17)
--- NOTE | 2023-02-24 10:40 | P.OP ---
Date of Procedure: 02/24/23 Preoperative Diagnosis: History of colon cancer Postoperative Diagnosis: History of colon cancer Procedure(s) Performed: Right subclavian Port-A-Cath placement Anesthesia: MAC Surgeon: Scout Turner Estimated Blood Loss (ml): 5 Pathology: none sent Condition: stable Disposition: PACU Description of Procedure: MThe patient was placed on the operating table in the supine position. The patient received IV sedation. The patient's chest was prepped and draped in the usual sterile fashion. A roll had been placed between the shoulder blades in a longitudinal fashion. After prepping and draping the skin was anesthetized 1% local Xylocaine. And then using the Seldinger technique the subclavian vein was cannulated. A wire was placed into the vein and fluoroscopy position the wire at the atrial caval junction. Next the dilator sheath was placed over top the wire and the wire was withdrawn. The catheter was positioned at the atriocaval position. The catheter was placed through the sheath after the dilator was withdrawn. The sheath was then withdrawn. Position of the catheter was confirmed with fluoroscopy. The Port-A-Cath was connected to the catheter. The Port-A-Cath was flushed with saline and then heparinized saline. The skin was closed interrupted 3-0 Monocryl suture. Dermabond was applied. Patient tolerated procedure well and was sent to recovery room stable condition.
[2023-02-24 11:02] VITALS: BP 126/69; PULSE 67
--- NOTE | 2023-02-24 11:14 | XR ---
EXAMINATION TYPE: XR chest 1V portable DATE OF EXAM: 02/24/2023 COMPARISON: 01/06/2023 INDICATION: Port placement TECHNIQUE: Single frontal view of the chest is obtained. FINDINGS: The heart size is normal. The pulmonary vasculature is normal. The lungs are clear. There is placement of the port on the right with the tip in the superior vena cava region. No pneumot horax is evident. IMPRESSION: 1. No acute pulmonary process. 2. No pneumothorax post port placement, tip is in the superior vena cava region
--- NOTE | 2023-02-24 11:15 | FL ---
Fluoroscopy INDICATION: Pain FINDINGS: Fluoroscopy time: 4.8 seconds. Total dose area product (DAP) in uGy*m?, mGy*cm? (or similar): 0.2145 Images obtained: 1. IMPRESSION: 1. Documentation of fluoroscopy.
== END 2023-02-24 11:35 | disposition home or self-care (01) ==
LOC: OR 08:53
PROVIDERS: ATTEND Surgery
DX: Z45.2 Encounter for adjustment and management of vascular access device (principal); Z85.038 Personal history of other malignant neoplasm of large intestine; I10 Essential (primary) hypertension; M19.90 Unspecified osteoarthritis, unspecified site; Z98.890 Other specified postprocedural states; Z87.891 Personal history of nicotine dependence; Z79.52 Long term (current) use of systemic steroids
CPT/HCPCS: 36561; 71045; C1788; J2250; J2405; J0690; J2001; J3010; J1642; J2704; J1644; J2371; J0665; J1920

== ENCOUNTER 2023-04-01 01:25 | Emergency (ER) | payer MEDICARE ==
[2023-04-01] MEDS ORDERED: NALOXONE 0.4 MG/ML 1 ML VIAL IVP STA (01:29)
[2023-04-01] MEDS ORDERED: SODIUM CHLORIDE 0.9% 500 ML 500 ML IV ONE (01:29)
[2023-04-01 01:30] LABS: Glucose,Whole Blood 186 mg/dL (70-110)
[2023-04-01 01:47] LABS: VBG PH 7.28 (7.31-7.41)
[2023-04-01 01:48] VITALS: TEMP 98.8
[2023-04-01 01:48] LABS: Anisocytosis Slight; Basophils % (A) 0 %; Eosinophils # (A) 0.1 k/uL (0-0.7); Eosinophils % (A) 1 %; HCT 38.5 % (34.0-46.0); HGB 12.6 gm/dL (11.4-16.0); Hypochromasia Slight; Lymphocytes # (A) 1.1 k/uL (1.0-4.8); Lymphocytes % (A) 9 %; MCH 30.3 pg (25.0-35.0); MCHC 32.7 g/dL (31.0-37.0); MCV 92.6 fL (80.0-100.0); Mean Platelet Volume 7.8; Monocytes # (A) 0.5 k/uL (0-1.0); Monocytes % (A) 4 %; Neutrophils # (A) 9.9 k/uL (1.3-7.7); Neutrophils % (A) 83 %; Platelet Count 154 k/uL (150-450); RBC 4.16 m/uL (3.80-5.40); RDW 16.6 % (11.5-15.5); WBC 11.9 k/uL (3.8-10.6)
[2023-04-01] MEDS ORDERED: LORazepam 2 MG/ML INJ IV STA (01:50)
[2023-04-01] MEDS ORDERED: MORPHINE SULFATE 4 MG/ML SYRINGE IVP STA (01:50)
--- NOTE | 2023-04-01 01:51 | CT ---
EXAM: CT Head Without Intravenous Contrast CLINICAL HISTORY: ITS.REASON CT Reason: Altered mental status TECHNIQUE: Axial computed tomography images of the head/brain without intravenous contrast. CTDI is 49.2 mGy and DLP is 1153.4 mGy-cm. This CT exam was performed using one or more of the following dose reduction techniques: automated exposure control, adjustment of the mA and/or kV according to patient size, and/or use of iterative reconstruction technique. COMPARISON: None FINDINGS: Brain: Large intraparenchymal hemorrhage in the right centrum semiovale measuring approximately 8.3 x 5.7 x 5.3 cm. Adjacent right- sided subarachnoid hemorrhage. Associated cerebral edema. Effacement of the basal cisterns, compatible with downward herniation. Effacement of the cerebral sulci. No significant white matter disease. Midline shift: Approximately 2.1 cm of leftward midline shift. Ventricles: Mass effect on the lateral ventricles and third ventricle and fourth ventricle. Mild prominence of the temporal horn of the left lateral ventricle, compatible with developing hydrocephalus. Bones/joints: Mild hyperostosis frontalis interna. No acute fracture. Soft tissues: Unremarkable. Vasculature: Atherosclerotic changes in the intracranial vasculature. Sinuses: Unremarkable as visualized. No acute sinusitis. Mastoid air cells: Unremarkable as visualized. No mastoid effusion. Orbits: Bilateral lens implants. IMPRESSION: 1. Large intraparenchymal hemorrhage in the right centrum semiovale measuring approximately 8.3 x 5.7 x 5.3 cm. Adjacent right-sided subarachnoid hemorrhage. Associated cerebral edema. 2. Approximately 2.1 cm of leftward midline shift. 3. Effacement of the basal cisterns, compatible with downward herniation. 4. Mild prominence of the temporal horn of the left lateral ventricle, compatible with developing hydrocephalus. <MYCVCSECTION> Communications: 04/01/23 01:53 Call Doctor Regarding Intracranial Hemorrhage, called Dr. Smith on 04/01 01:54 (-05:00)
[2023-04-01] MEDS ORDERED: ONDANSETRON 4 MG/2 ML VIAL IVP PRN (01:55)
[2023-04-01] MEDS ORDERED: LORazepam 2 MG/ML INJ IV PRN (01:55)
[2023-04-01 01:58] LABS: ALT 67 U/L (4-34); AST 107 U/L (14-36); African American GFR (CKD) >90 (>60 ml/min/1.73 sqM); Albumin 3.6 g/dL (3.5-5.0); Alcohol <10 mg/dL; Alkaline Phosphatase 269 U/L (38-126); Anion Gap 12 mmol/L; Blood Urea Nitrogen 20 mg/dL (7-17); Calcium 8.8 mg/dL (8.4-10.2); Carbon Dioxide 19 mmol/L (22-30); Chloride 107 mmol/L (98-107); Glucose 187 mg/dL (74-99); Magnesium 1.7 mg/dL (1.6-2.3); Non-African American GFR(CKD) >90 (>60 ml/min/1.73 sqM); Potassium 3.8 mmol/L (3.5-5.1); Sodium 138 mmol/L (137-145); Total Bilirubin 0.8 mg/dL (0.2-1.3); Total Protein 6.7 g/dL (6.3-8.2)
[2023-04-01] MEDS ORDERED: niCARdipine 20 MG in SODIUM CHLORIDE 0.9% 192 ML IV ONE (02:00)
--- NOTE | 2023-04-01 02:14 | ED ---
General Adult HPI - General Chief complaint: Shortness of Breath Stated complaint: Unresponsive Time Seen by Provider: 04/01/23 01:29 Source: family, EMS, RN notes reviewed, old records reviewed Mode of arrival: EMS Limitations: altered mental status - History of Present Illness Initial comments: 73-year-old female presents with acute altered mental status,. Rest. Patient had apparently awoken from sleep with complaint of difficulty breathing and she immediately became unresponsive. She is currently undergoing chemotherapy. Upon arrival paramedics found that she was hypoxic and had snoring respirations. Patient was completely unresponsive at this time. - Related Data Home Medications Medication Instructions Recorded Confirmed Ferrous Sulfate [Feosol] 325 mg PO DAILY 02/18/23 02/24/23 Allergies Allergy/AdvReac Type Severity Reaction Status Date / Time No Known Allergies Allergy Verified 02/24/23 09:22 Review of Systems ROS Statement: Those systems with pertinent positive or pertinent negative responses have been documented in the HPI. ROS Other: All systems not noted in ROS Statement are negative. Past Medical History Past Medical History: Cancer, Hypertension, Osteoarthritis (OA) Additional Past Medical History / Comment(s): BP elevated recently but not requiring meds yet, recent dx. colon cancer w/surgery History of Any Multi-Drug Resistant Organisms: ESBL Date of last positivie culture/infection: 01/04/23 MDRO Source:: Blood Past Surgical History: Adenoidectomy, Appendectomy, Bowel Resection, Tonsillectomy Additional Past Surgical History / Comment(s): cataracts removed, sigmoid resection w/colostomy Past Anesthesia/Blood Transfusion Reactions: No Reported Reaction Past Psychological History: No Psychological Hx Reported Smoking Status: Former smoker - Past Family History Mother Family Medical History: Cancer General Exam General appearance: obtunded, in distress Head exam: Present: atraumatic, normocephalic Eye exam: Absent: PERRL (Postsurgical changes nonreactive) Respiratory exam: Present: other (Agonal respirations) Cardiovascular Exam: Present: regular rate, normal rhythm GI/Abdominal exam: Present: soft. Absent: distended, tenderness Extremities exam: Present: normal capillary refill Neurological exam: Present: other (No corneal reflexes, no gag, agonal respirations, no purposeful movements.) Skin exam: Present: warm, dry, cyanosis Course Vital Signs 04/01/23 04/01/23 04/01/23 01:26 01:34 01:36 Temperature 98.8 F Pulse Rate 68 Respiratory 24 22 27 H Rate Blood Pressure 260/138 O2 Sat by Pulse 100 Oximetry 04/01/23 04/01/23 04/01/23 02:01 02:10 02:30 Temperature Pulse Rate 65 77 74 Respiratory 26 H 18 17 Rate Blood Pressure 164/79 153/74 O2 Sat by Pulse 48 L 37 L 44 L Oximetry 04/01/23 04/01/23 02:40 02:54 Temperature Pulse Rate 70 59 L Respiratory 17 16 Rate Blood Pressure 161/72 156/80 O2 Sat by Pulse 42 L 39 L Oximetry - Reevaluation(s) Reevaluation #1: 04/01/23 03:20 Time of 0320 Medical Decision Making - Medical Decision Making Was pt. sent in by a medical professional or institution (, PA, DIPLOMATIC OFFICER, urgent care, hospital, or skilled nursing...) When possible be specific @ -No Did you speak to anyone other than the patient for history (EMS, parent, family, police, friend...)? What history was obtained from this source @ -[Paramedics, patient's Did you review nursing and triage notes (agree or disagree)? Why? @ -I reviewed and agree with nursing and triage notes Were old charts reviewed (outside hosp., previous admission, EMS record, old EKG, old radiological studies, urgent care reports/EKG's, skilled nursing records)? Report findings @ -No old charts were reviewed Differential Diagnosis (chest pain, altered mental status, abdominal pain women, abdominal pain men, vaginal bleeding, weakness, fever, dyspnea, syncope, headache, dizziness, GI bleed, back pain, seizure, CVA, palpatations, mental health, musculoskeletal)? @ Differential Altered Mental Status: Hypoglycemia, DKA, hypercapnia, ETOH, overdose, CO poisoning, trauma, myxedema coma, HTN encephalopathy, infection, encephalitis, psychosis, intercranial hemorrhage, hepatic encephalopathy, meningitis, CVA, this is not meant to be an all-inclusive list EKG interpreted by me (3pts min.). @ -As above X-rays interpreted by me (1pt min.). @ -None done CT interpreted by me (1pt min.). @CT shows a large intraparenchymal hemorrhage with midline shift. U/S interpreted by me (1pt. min.). @ -None done What testing was considered but not performed or refused? (CT, X-rays, U/S, labs)? Why? @ -None What meds were considered but not given or refused? Why? @ -None Did you discuss the management of the patient with other professionals (baljeet acuna i.e. , PA, DIPLOMATIC OFFICER, lab, RT, psych nurse, social media marketing specialist, donor relations associate, teacher, building drafting officer, manager rn case)? Give summary @ -No Was smoking cessation discussed for >3mins.? @ -No Was critical care preformed (if so, how long)? @ -yes 35 min Were there social determinants of health that impacted care today? How? (Homelessness, low income, unemployed, alcoholism, drug addiction, transportation, low edu. Level, literacy, decrease access to med. care, long-term, rehab)? @ -No Was there de-escalation of care discussed even if they declined (Discuss DNR or withdrawal of care, Hospice)? DNR status @ -Patient's is informed of the diagnosis and states that the patient would not want to be on a ventilator and would not want to undergo invasive procedures. He does state that she is a DO NOT RESUSCITATE and wouldn't want to be kept comfortable. What co-morbidities impacted this encounter? (DM, HTN, Smoking, COPD, CAD, Cancer, CVA, ARF, Chemo, Hep., AIDS, mental health diagnosis, sleep apnea, morbi d obesity)? @ -[Cancer Was patient admitted / discharged? Hospital course, mention meds given and route, prescriptions, significant lab abnormalities, going to OR and other pertinent info. @73-year-old female presenting in extremis, hypertensive with concern for intracranial hemorrhage. Patient has no purposeful movements. She does not alexx ct to pain. She has agonal respirations. Patient is taken mainly to computed tomography scan which does identify a large intracranial hemorrhage. After reviewing these images and having a lengthy discussion with the it is decided that the patient will be made Comfort Care. All additional measures will be stopped and the patient will receive only comfort measures. Undiagnosed new problem with uncertain prognosis? @ -No Drug Therapy requiring intensive monitoring for toxicity (Heparin, Nitro, Insulin, Cardizem)? @ -No Were any procedures done? @ -No Diagnosis/symptom? @ -[Intracranial hemorrhage, end-of-life, Comfort Care Acute, or Chronic, or Acute on Chronic? @acute Uncomplicated (without systemic symptoms) or Complicated (systemic symptoms)? @ complicated Side effects of treatment? @ -No Exacerbation, Progression, or Severe Exacerbation? @ -No Poses a threat to life or bodily function? How? (Chest pain, USA, ND, pneumonia, PE, COPD, DKA, ARF, appy, cholecystitis, CVA, Diverticulitis, Homicidal, Suicidal, threat to staff... and all critical care pts) @ -[yes, ICH - Lab Data Result diagrams: 04/01/23 01:41 04/01/23 01:41 Lab Results 04/01/23 04/01/23 04/01/23 Range/Units 01:29 01:41 01:41 WBC 11.9 H (3.8-10.6) k/uL RBC 4.16 (3.80-5.40) m/uL Hgb 12.6 (11.4-16.0) gm/dL Hct 38.5 (34.0-46.0) % MCV 92.6 (80.0-100.0) fL MCH 30.3 (25.0-35.0) pg MCHC 32.7 (31.0-37.0) g/dL RDW 16.6 H (11.5-15.5) % Plt Count 154 (150-450) k/uL MPV 7.8 Neutrophils % 83 % Lymphocytes % 9 % Monocytes % 4 % Eosinophils % 1 % Basophils % 0 % Neutrophils # 9.9 H (1.3-7.7) k/uL Lymphocytes # 1.1 (1.0-4.8) k/uL Monocytes # 0.5 (0-1.0) k/uL Eosinophils # 0.1 (0-0.7) k/uL Basophils # 0.0 (0-0.2) k/uL Hypochromasia Slight Anisocytosis Slight VBG pH (7.31-7.41) VBG pCO2 (37-51) mmHg VBG HCO3 (24-28) mmol/L Sodium 138 (137-145) mmol/L Potassium 3.8 (3.5-5.1) mmol/L Chloride 107 (98-107) mmol/L Carbon Dioxide 19 L (22-30) mmol/L Anion Gap 12 mmol/L BUN 20 H (7-17) mg/dL Creatinine 0.56 (0.52-1.04) mg/dL Est GFR (CKD-EPI)AfAm >90 (>60 ml/min/1.73 sqM) Est GFR (CKD-EPI)NonAf >90 (>60 ml/min/1.73 sqM) Glucose 187 H (74-99) mg/dL POC Glucose (mg/dL) 186 H (70-110) mg/dL POC Glu Stage Setting Painter Apprentice ID Nando, Cari Plasma Lactic Acid Dylon (0.7-2.0) mmol/L Calcium 8.8 (8.4-10.2) mg/dL Magnesium 1.7 (1.6-2.3) mg/dL Total Bilirubin 0.8 (0.2-1.3) mg/dL AST 107 H (14-36) U/L ALT 67 H (4-34) U/L Alkaline Phosphatase 269 H (38-126) U/L Troponin I (0.000-0.034) ng/mL Total Protein 6.7 (6.3-8.2) g/dL Albumin 3.6 (3.5-5.0) g/dL Serum Alcohol <10 mg/dL 04/01/23 04/01/23 04/01/23 Range/Units 01:41 01:41 01:41 WBC (3.8-10.6) k/uL RBC (3.80-5.40) m/uL Hgb (11.4-16.0) gm/dL Hct (34.0-46.0) % MCV (80.0-100.0) fL MCH (25.0-35.0) pg MCHC (31.0-37.0) g/dL RDW (11.5-15.5) % Plt Count (150-450) k/uL MPV Neutrophils % % Lymphocytes % % Monocytes % % Eosinophils % % Basophils % % Neutrophils # (1.3-7.7) k/uL Lymphocytes # (1.0-4.8) k/uL Monocytes # (0-1.0) k/uL Eosinophils # (0-0.7) k/uL Basophils # (0-0.2) k/uL Hypochromasia Anisocytosis VBG pH 7.28 L (7.31-7.41) VBG pCO2 52 H (37-51) mmHg VBG HCO3 25 (24-28) mmol/L Sodium (137-145) mmol/L Potassium (3.5-5.1) mmol/L Chloride (98-107) mmol/L Carbon Dioxide (22-30) mmol/L Anion Gap mmol/L BUN (7-17) mg/dL Creatinine (0.52-1.04) mg/dL Est GFR (CKD-EPI)AfAm (>60 ml/min/1.73 sqM) Est GFR (CKD-EPI)NonAf (>60 ml/min/1.73 sqM) Glucose (74-99) mg/dL POC Glucose (mg/dL) (70-110) mg/dL POC Glu Stage Setting Painter Apprentice ID Plasma Lactic Acid Dylon 1.3 (0.7-2.0) mmol/L Calcium (8.4-10.2) mg/dL Magnesium (1.6-2.3) mg/dL Total Bilirubin (0.2-1.3) mg/dL AST (14-36) U/L ALT (4-34) U/L Alkaline Phosphatase (38-126) U/L Troponin I <0.012 (0.000-0.034) ng/mL Total Protein (6.3-8.2) g/dL Albumin (3.5-5.0) g/dL Serum Alcohol mg/dL Critical Care Time Critical Care Time: Yes Total Critical Care Time: 35 Disposition Clinical Impression: ICH (intracerebral hemorrhage), End of life care Disposition: Condition: Poor Is patient prescribed a controlled substance at d/c from ED?: No Time of Disposition: 02:15 Preliminary Cause of : Intracranial hemorrhage
--- NOTE | 2023-04-01 02:29 | XR ---
EXAM: XR Chest, 1 View CLINICAL HISTORY: ITS.REASON XR Reason: altered mental status TECHNIQUE: Frontal view of the chest. COMPARISON: None FINDINGS: Hardware: Right-sided Port-A-Cath terminates in the region of the upper SVC. Lungs/pleura: Interstitial and hazy opacities throughout the lungs with Sonya B-lines. No pleural effusion or pneumothorax. Hyperinflation of the lungs. Heart/mediastinum: Normal. No cardiomegaly. Soft tissues: Unremarkable. Bones: No acute fracture. Upper abdomen: Normal. IMPRESSION: Interstitial and hazy opacities throughout the lungs with Sonya B-lines, concerning for pulmonary vasculature congestion and edema. Infectious/inflammatory process is not excluded.
[2023-04-01] MEDS ORDERED: MORPHINE SULFATE (100 MG/2 ML) 100 MG in SODIUM CHLORIDE 0.9% 100 ML IV SCH (02:30)
[2023-04-01 03:05] LABS: INR 0.9 (<1.2)
[2023-04-01 03:36] VITALS: BP 121/64; PULSE 55; RESP 0
[2023-04-01 03:44] LABS: Partial Thromboplastin Time 21.3 sec (22.0-30.0)
== END 2023-04-01 04:29 | disposition expired ==
LOC: EC 01:25 → UNDOADMIN 02:35 → 5NMEDONC 02:35 → 6NMEDSUR 02:52 → 5NMEDONC 02:52 → EC 04:26
DX: I61.9 Nontraumatic intracerebral hemorrhage, unspecified (principal); I10 Essential (primary) hypertension; Z87.891 Personal history of nicotine dependence
CPT/HCPCS: 36415; 93005; 80053; 82803; 83605; 83735; 84484; 85025; 85610; 85730; 71045; 70450; 99291; 96365; 96375 ×3; G0480; J2060; J2270 ×2; J2310; 80320